=== PATIENT | female | born 1965 | race Caucasian/White ===

== ENCOUNTER 2017-05-13 23:53 | Emergency (ER) | payer OTHER ==
--- NOTE | 2017-05-14 03:11 | PDOC ---
History of Present Illness - General Stated Complaint: RT ARM PAIN Time Seen by Provider: 05/14/17 02:56 History Source: Patient Exam Limitations: No Limitations - History of Present Illness Initial Comments: 05/14/17 03:10 Patient is a 51F with history of opiate abuse (on methadone), asthma, throat cancer (s/p removal and chemo, last tx 9 years ago), gastrostomy, and cholecystectomy here today complaining of right shoulder pain that woke her from sleep. She reports having chronic weakness and pain in the right shoulder that worsened today. Patient denies trauma. Patient denies shortness of breath, chest pain, nausea, vomiting, fevers and chills. She denies leg swelling, recent immobilization, and travel. Past History - Past Medical History Allergies/Adverse Reactions: Allergies Allergy/AdvReac Type Severity Reaction Status Date / Time Penicillins Allergy Verified 05/14/17 03:20 Home Medications: Ambulatory Orders Zolpidem Tartrate [Ambien] 10 mg PO HS 10/14/11 Albuterol 0.083% Nebulizer Swapna [Ventolin 0.083% Nebulizer Soln -] 1 neb NEB QID 04/20/15 Albuterol Sulfate Inhaler - [Ventolin HFA Inhaler -] 1 - 2 inh PO QID PRN Atorvastatin Ca [Lipitor] 20 mg PO HS 04/20/15 Clonazepam 2 mg PO TID 04/20/15 Fluticasone Propionate [Flovent Hfa] 220 mcg IH BID 04/20/15 Folic Acid 1 mg PO DAILY 04/20/15 Lorazepam 2 mg PO TID 04/20/15 Mometasone Furoate [Asmanex] 220 mcg IH BID 04/20/15 Risperidone 1 mg PO DAILY 04/20/15 Risperidone 1 mg PO DAILY 04/20/15 hydrOXYzine PAMOATE [Vistaril -] 50 mg PO TID 04/20/15 Asthma: Yes Cancer: Yes (throat ca on remission) Thyroid Disease: No - Surgical History Abdominal Surgery: Yes (GASTROSTOMY, REMOVED) Cholecystectomy: Yes - Reproductive History (#): 7 Para: 6 Spontaneous : 1 - Immunization History Immunization Up to Date: Yes - Suicide/Smoking/Psychosocial Hx Smoking Status: No Smoking History: Current every day smoker Have you smoked in the past 12 months: Yes Number of Cigarettes Smoked Daily: 10 'Breaking Loose' booklet given: 04/21/15 Hx Alcohol Use: No Drug/Substance Use Hx: No Substance Use Type: None, Cocaine, Heroin Hx Substance Use Treatment: Yes Review of Systems - Review of Systems Comments:: 05/14/17 03:20 GENERAL/CONSTITUTIONAL: No fever or chills. HEAD, EYES, EARS, NOSE AND THROAT: No change in vision. No sore throat. CARDIOVASCULAR: No chest pain or shortness of breath RESPIRATORY: No cough, wheezing, or hemoptysis. GASTROINTESTINAL: No nausea, vomiting, diarrhea or constipation. MUSCULOSKELETAL: Positive for right shoulder pain. No neck or back pain. SKIN: No rash NEUROLOGIC: No headache, vertigo, loss of consciousness, or change in strength/ sensation. ENDOCRINE: No increased thirst. No abnormal weight change HEMATOLOGIC/LYMPHATIC: No anemia, easy bleeding, or history of blood clots. ALLERGIC/IMMUNOLOGIC: No hives or skin allergy. *Physical Exam - Physical Exam Comments: 05/14/17 03:21 GENERAL: Awake, alert, and fully oriented, in no acute distress R SHOULDER: No bruising or ecchymosis. Neurovascularly intact distal to injury. Tender to palpation long humeral head, clavicle. Palpation of distal humerus causes pain in shoulder HEAD: No signs of trauma, normocephalic, atraumatic EYES: PERRLA, EOMI, sclera anicteric, conjunctiva clear ENT: Auricles normal inspection, hearing grossly normal, nares patent, oropharynx clear without exudates. Moist mucosa LUNGS: No distress, speaks full sentences, clear to auscultation bilaterally HEART: Regular rate and rhythm, normal S1 and S2, no murmurs, rubs or gallops, peripheral pulses normal and equal bilaterally. NEUROLOGICAL: Cranial nerves II through XII grossly intact. Normal speech, no focal sensorimotor deficits SKIN: Warm, Dry, normal turgor, no rashes or lesions noted. ED Treatment Course - RADIOLOGY Radiology Studies Ordered: Category Date Time Status SHOULDER-RIGHT [RAD] Stat Radiology 05/14/17 03:09 Ordered Medical Decision Making - Medical Decision Making 05/14/17 03:23 Patient is 51F with history of opiate abuse, throat cancer, asthma, cholecystectomy here today with shoulder pain. Vital signs stable and normal. Considered atypical presentation of cardiac etiology, do not believe likely given physical exam and history. Will evaluate with shoulder x-rays. Will use low dose ketamine to attempt to control pain. 05/14/17 05:05 Shoulder x-ray negative for any acute pathology. Patient's pain much improved after low dose ketamine, tolerated well. Will discharge with instructions to take NSAIDS and follow up with her primary care doctor. *DC/Admit/Observation/Transfer Diagnosis at time of Disposition: Shoulder pain, right - Discharge Dispostion Disposition: HOME Condition at time of disposition: Good Admit: No - Referrals Referrals: Dannielle Blackmon MD [Primary Care Provider] - - Patient Instructions Printed Discharge Instructions: DI for Shoulder Pain Additional Instructions: Please return if you have any new, worsening or concerning symptoms. Please follow up with your primary care physician this week. Please take ibuprofen or naproxen for your shoulder pain as described on the bottle. - Post Discharge Activity Forms/Work/School Notes: Back to Work
[2017-05-14 03:20] VITALS: BP 113/73; PULSE 68; TEMP 98.5; BMI 23.3
[2017-05-14] MEDS ORDERED: KETAMINE HCL 500 MG/10 ML VIAL IV ONE (03:34)
--- NOTE | 2017-05-14 03:56 | PDOC ---
Attending Attestation - HPI HPI: 05/14/17 04:46 Pt is a 51 yo F with a PMHx of Throat CA, Asthma, Substance abuse (on Methadone ) who presents to the ED with R shoulder pain. Patient reports sudden onset of R shoulder pain that woke her up from sleep. Patient denies any recent trauma or injury to the area. Patient denies any numbness,weakness or tingling. PCP: - Medical Decision Making 05/14/17 04:25 Documentation prepared by Olinda Thomas, acting as medical sales consultant for Yesy Yang MD <Olinda Thomas - Last Filed: 05/14/17 04:46> - Resident Resident Name: Stanislaw Sosa - ED Attending Attestation I have performed the following: I have examined & evaluated the patient, The case was reviewed & discussed with the resident, I agree w/resident's findings & plan, Exceptions are as noted - Physicial Exam PE: GENERAL: Awake, alert, and fully oriented, in no acute distress HEAD: No signs of trauma EYES: PERRLA, EOMI, sclera anicteric, conjunctiva clear ENT: Auricles normal inspection, hearing grossly normal, nares patent, oropharynx clear without exudates. Moist mucosa NECK: Normal ROM, supple, no lymphadenopathy, JVD, or masses LUNGS: Breath sounds equal, clear to auscultation bilaterally. No wheezes, and no crackles HEART: Regular rate and rhythm, normal S1 and S2, no murmurs, rubs or gallops ABDOMEN: Soft, nontender, normoactive bowel sounds. No guarding, no rebound. No masses EXTREMITIES: R deltoid tenderness/spasm, worse with ROM. No bony tenderness. Remainder of extremities with normal range of motion, no edema. No clubbing or cyanosis. No cords, erythema, or tenderness NEUROLOGICAL: Cranial nerves II through XII grossly intact. Normal speech, normal gait SKIN: Warm, Dry, normal turgor, no rashes or lesions noted. - Medical Decision Making Pain appears to be musculoskeletal, reproducible on ROM of R shoulder. Patient states she does a lot of housework and overhead lifting. There is no bony tenderness, and no acute finding on XR. Will treat for pain, likely DC home. <Yesy Yang - Last Filed: 05/14/17 04:50>
== END 2017-05-14 05:20 | disposition home or self-care (01) ==
LOC: JER 23:53
DX: M25.511 Pain in right shoulder (principal); F10.20 Alcohol dependence, uncomplicated; J45.909 Unspecified asthma, uncomplicated; F17.210 Nicotine dependence, cigarettes, uncomplicated; Z85.819 Personal history of malignant neoplasm of unspecified site of lip, oral cavity, and pharynx; Z93.1 Gastrostomy status; Z90.49 Acquired absence of other specified parts of digestive tract
CPT/HCPCS: 73030-TC-RT-FY; 99281-25

== ENCOUNTER 2018-11-08 02:48 | Inpatient (IN) | payer OTHER ==
[2018-11-08] MEDS ORDERED: SODIUM CHLORIDE 0.9% 500 ML INFUS.BAG IV ONE (03:40)
--- NOTE | 2018-11-08 03:54 | PDOC ---
History of Present Illness - General Chief Complaint: Respiratory Stated Complaint: DIFFICULTY BREATHING Time Seen by Provider: 11/08/18 03:01 History Source: Patient, Spouse (pedro) Exam Limitations: No Limitations - History of Present Illness Initial Comments: 11/08/18 03:45 52F w/ pmh of esophageal CA s/p chemoradiation now in remission, former dope user now on methadone BIBA after the daughter found the pt lethargic and minimally arousable to physical and verbal stimuli at home. EMS states that the patient had coarse crackly breath sounds, delivered albuterol x2 en route. Patient endorses productive cough with brown sputum w/ measured fever and chills at home yesterday. States that she was recently hospitalized at [facility] after she had syncope and w/u showing PNA. Was discharged home on 11/06/18 w/ levofloxacin. Patient states that she has been compliant with medications. At baseline, eats a soft diet due to h/o esophageal cancer. Associated Symptoms: reports: fever/chills. denies: chest pain, cough, diaphoresis, headaches, nausea/vomiting, shortness of breath, syncope Past History - Travel Traveled outside of the country in the last 30 days: No Close contact w/someone who was outside of country & ill: No - Past Medical History Allergies/Adverse Reactions: Allergies Allergy/AdvReac Type Severity Reaction Status Date / Time Penicillins Allergy Verified 05/14/17 03:20 Home Medications: Ambulatory Orders Zolpidem Tartrate [Ambien] 10 mg PO HS 10/14/11 Albuterol 0.083% Nebulizer Swapna [Ventolin 0.083% Nebulizer Soln -] 1 neb NEB QID 04/20/15 Atorvastatin Ca [Lipitor] 20 mg PO HS 04/20/15 Clonazepam 2 mg PO TID 04/20/15 Fluticasone Propionate [Flovent Hfa] 220 mcg IH BID 04/20/15 Folic Acid 1 mg PO DAILY 04/20/15 Mometasone Furoate [Asmanex] 220 mcg IH BID 04/20/15 hydrOXYzine PAMOATE [Vistaril -] 50 mg PO TID 04/20/15 Levothyroxine [Synthroid -] 50 mcg PO DAILY 01/03/18 Risperidone [Risperdal] 2 mg PO DAILY 10/18/18 Guaifenesin 100 mg PO QID PRN #1 bottle 02/27/18 Gabapentin Liquid [Neurontin Oral Liquid -] 500 mg PO TID #900 ml 03/13/18 Nystatin Cream [Mycostatin] 1 applic TP BID #1 tube 03/13/18 Baclofen 10 mg PO TID PRN #60 tablet 03/27/18 Albuterol Sulfate Inhaler - [Ventolin HFA Inhaler -] 2 inh PO QID PRN #1 inhaler 04/15/18 Diclofenac Sodium [Voltaren] 2 gm TP TID PRN #3 tube 06/04/18 Methadone [Dolophine -] 90 mg PO DAILY 06/04/18 Polyethylene Glycol 3350 [Miralax (For Bowel Prep) -] 17 gm PO DAILY #1 bottle 06/04/18 Asthma: Yes Cancer: Yes (esophageal ca in remission) Cardiac Disorders: No Hx Myocardial Infarction: No CVA: No COPD: Yes CHF: No Diabetes: No Disorders: No (frequency of urinating) HTN: No Hypercholesterolemia: No Liver Disease: No Seizures: No Thyroid Disease: No - Surgical History Abdominal Surgery: Yes (GASTROSTOMY, REMOVED) Cholecystectomy: Yes (open candice) - Family Disease History Family Disease History: Diabetes: Father, Mother - Reproductive History (#): 7 Para: 6 Spontaneous : 1 - Immunization History Immunization Up to Date: Yes - Suicide/Smoking/Psychosocial Hx Smoking Status: No Smoking History: Current some day smoker (1cig intermittently throughout week) Have you smoked in the past 12 months: No Number of Cigarettes Smoked Daily: 2 Information on smoking cessation initiated: No 'Breaking Loose' booklet given: 04/21/15 Hx Alcohol Use: No Drug/Substance Use Hx: Yes (dope) Substance Use Type: Heroin Hx Substance Use Treatment: Yes (methadone maintenance) Review of Systems - Review of Systems Able to Perform ROS?: Yes Is the patient limited Estonian proficient: No Constitutional: Yes: Chills, Fever HEENTM: No: Blurred Vision, Double Vision Respiratory: Yes: Shortness of Breath, Productive cough Cardiac (ROS): No: Chest Pain, Irregular Heart Rate, Palpitations, Chest Tightness ABD/GI: No: Constipated, Diarrhea, Nausea, Vomiting : No: Burning, Dysuria Neurological: No: Headache, Dizziness *Physical Exam - Vital Signs Last Vital Signs Temp Pulse Resp BP Pulse Ox 100.8 F H 62 22 H 119/87 95 11/08/18 03:14 11/08/18 03:14 11/08/18 03:14 11/08/18 03:14 11/08/18 03:14 - Physical Exam General Appearance: No: Apparent Distress HEENT: positive: Normal Voice. negative: Pale Conjunctivae, Scleral Icterus (R) , Scleral Icterus (L) Neck: positive: Supple. negative: Trachea midline, Lymphadenopathy (R), Lymphadenopathy (L) Respiratory/Chest: positive: Crackles, Rales. negative: Chest Tender, Lungs Clear, Normal Breath Sounds, Respiratory Distress, Rapid RR, Stridor, Wheezing, Hyperresonant, Dullness, Plerual Rub Cardiovascular: positive: Regular Rate, S1, S2. negative: Tachycardia Vascular Pulses: Dorsalis-Pedis (R): 2+, Doralis-Pedis (L): 2+ Gastrointestinal/Abdominal: positive: Soft, Other (Right subcostal surgical incision) Neurologic: positive: Alert. negative: Confused ED Treatment Course - LABORATORY CBC & Chemistry Diagram: 11/08/18 03:40 11/08/18 03:40 - RADIOLOGY Radiology Studies Ordered: Category Date Time Status CHEST - PA [RAD] Stat Radiology 11/08/18 03:40 Ordered Medical Decision Making - Medical Decision Making 11/08/18 04:23 BIBA for AMS, now at baseline. Condition likely 2/2 recent PNA - fu CBC, CMP, troponin, EKG, BCX, UA, UCX - fu CXR - administer NS 1L bolus, ofirmev 11/08/18 05:29 - fu CT chest to further eval for PNA 11/08/18 06:19 - CT chest with b/l multifocal diffuse infiltrates - will administer ceftriaxone and azithromycin - supplemental O2 needs, saturating to 80s on RA; now on NC 2L - decision to admit *DC/Admit/Observation/Transfer Diagnosis at time of Disposition: Pneumonia of both upper lobes Qualifiers: Pneumonia type: due to unspecified organism Qualified Code(s): J18.1 - Lobar pneumonia, unspecified organism - Discharge Dispostion Condition at time of disposition: Stable Decision to Admit order: Yes - Referrals Referrals: Dannielle Blackmon MD [Primary Care Provider] - - Patient Instructions - Post Discharge Activity
[2018-11-08] MEDS ORDERED: ACETAMINOPHEN 1000 MG/100 ML VIAL (NON FORMULARY) IVPB ONE (04:02)
[2018-11-08] MEDS ORDERED: ACETAMINOPHEN INJECTION 100 ML IVPB ONE (04:13)
[2018-11-08 04:49] LABS: BASO % 0.4 % (0-2.0); EOS % 1.8 % (0-4.5); HEMATOCRIT 31.9 % (32.4-45.2); HEMOGLOBIN 10.1 GM/dL (10.7-15.3); LYMPH % 12.9 % (8-40); MCH 26.7 pg (25.7-33.7); MCHC 31.5 g/dl (32.0-36.0); MEAN CELL VOLUME 84.5 fl (80-96); MEAN PLT VOLUME 8.3 fl (7.5-11.1); MONO % 7.2 % (3.8-10.2); NEUT % 77.7 % (42.8-82.8); PLATELET COUNT 338 K/MM3 (134-434); RBC 3.78 M/mm3 (3.60-5.2); RDW 16.5 % (11.6-15.6); WHITE BLOOD COUNT 9.8 K/mm3 (4.0-10.0)
[2018-11-08 04:58] LABS: EPI CELLS 2.9 /HPF (0-5/HPF); HYALINE CASTS 1 /lpf (0-8); PH,URINE 6.5 (5.0-8.0); URINE APPEARANCE CLOUDY; URINE BACTERIA 15.2 /hpf (NEGATIVE); URINE BILIRUBIN NEGATIVE (NEGATIVE); URINE COLOR YELLOW; URINE GLUCOSE (UA) NEGATIVE (NEGATIVE); URINE KETONE NEGATIVE (NEGATIVE); URINE LEUK ESTERASE 1+ (NEGATIVE); URINE NITRITE NEGATIVE (NEGATIVE); URINE PROTEIN NEGATIVE (NEGATIVE); URINE RBC 1 /hpf (0-4); URINE WBC 12 /hpf (0-5)
[2018-11-08 05:02] LABS: INR 1.25 (0.83-1.09); PROTHROMBIN TIME (PATIENT) 14.8 SEC (9.7-13.0)
[2018-11-08 05:12] LABS: ALBUMIN 2.4 g/dl (3.4-5.0); BILIRUBIN,TOTAL 0.6 mg/dL (0.2-1); BLOOD UREA NITROGEN 7.5 mg/dL (7-18); CALCIUM 8.6 mg/dL (8.5-10.1); CREATININE 0.9 mg/dL (0.55-1.3); TOT PROT 6.5 g/dl (6.4-8.2)
[2018-11-08] MEDS ORDERED: CEFTRIAXONE 1,000 MG in DEXTROSE 5%-WATER - 50 ML IVPB ONE (06:12)
[2018-11-08] MEDS ORDERED: AZITHROMYCIN IVPB 500 MG in DEXTROSE 5%-WATER - 250 ML IVPB ONE (06:12)
[2018-11-08 06:13] LABS: N-TERMINAL BNP 818.2 pg/ml (5-125)
[2018-11-08] MEDS ORDERED: AZITHROMYCIN IVPB 500 MG/250 ML BAG IVPB ONE (06:29)
[2018-11-08] MEDS ORDERED: CEFTRIAXONE 1 GM/50 ML BAG ONE (06:30)
--- NOTE | 2018-11-08 06:43 | PDOC ---
Attending Attestation - Resident Resident Name: LynchWinston - ED Attending Attestation I have performed the following: I have examined & evaluated the patient, The case was reviewed & discussed with the resident, I agree w/resident's findings & plan, Exceptions are as noted - HPI HPI: 11/08/18 06:40 52F pmh esophageal CA in remission after chemorad, ex IVDA on methadone here after being found lethargic but arousable at home. Pt with f/c and productive cough at home. Pt is on day 3 of outpt levaquin treatment of pneumonia - Physicial Exam PE: 11/08/18 06:41 Agree with exam as documented by resident - Medical Decision Making 11/08/18 06:42 Somnolence likely 2/2 failure of outpatient PNA treatment f/u cxr, labs, ekg Likely infiltrate on CXR found to be hypoxic on RA F/u ct Chest ct chest, extensive multilobar infiltrates abx admit
[2018-11-08] MEDS ORDERED: PATIENT'S OWN MEDICATION (NON-FORMULARY) (Diclofenac Sodium [Voltaren] 2 GM) TP PRN (07:17)
[2018-11-08] MEDS ORDERED: SODIUM CHLORIDE 1,000 ML IV STA ×3 (07:20→11:35)
[2018-11-08] MEDS ORDERED: METHADONE HCL 40 MG DISPERSABLE TABLET PO SCH ×2 (10:00→11:34)
[2018-11-08] MEDS ORDERED: ALBUTEROL SO4 0.083% IH SOL 2.5 MG/3 ML VIAL.NEB. NEB ONE (10:44)
--- NOTE | 2018-11-08 10:52 | HP ---
CHIEF COMPLAINT: weakness, SOB PCP: Robby Pantoja HISTORY OF PRESENT ILLNESS: 52 y.o. F PMH significant for esophageal CA diagnosed in 2015 s/p chemo/rad ( completed in 2016), ex- IVDU on methadone (90), hypothyroidism, asthma (uses albuterol inhaler 1x/week) presented with weakness, SOB and lethargy as per pt' s daughter. Pt BIBEMS, given albuterol inh x2. On admission pt found to be hypotensive. Given 1L NS bolus w/ improvement of BP. About 1 week ago patient was admitted to Health system for syncopal episode and was found to have b/l PNA at this time. Patient was d/c'd on 11/06/18 with PO levaquin and says she has taken it since her date of discharge (today day #3 abx). Pt currently endorses recent fevers and cough productive of brown sputum for the past few days. Chest imaging in ED revealed b/l patchy infiltrates; pt was given 1g Ceftriaxone & 500mg Azithromycin. ER course was notable for: (1) Hypotension 87/49 (2) Ceftriaxone 1g, Azithromycin 500mg, 1g IV tylenol (3)1L bolus NS Recent Travel: Denies PAST MEDICAL HISTORY: as above PAST SURGICAL HISTORY: Lap candice in 2016 Social History: Lives in and out of a detention with her Smokin-2 cigarettes per day x many years Alcohol: Denies Drugs: In past, on methadone Family History: Asthma in mother & father Allergies Penicillins Allergy (Verified 05/14/17 03:20)- pt gets a rash HOME MEDICATIONS: Home Medications Medication Instructions Recorded Zolpidem Tartrate [Ambien] 10 mg PO HS 10/14/11 Albuterol 0.083% Nebulizer Swapna 1 neb NEB QID 04/20/15 [Ventolin 0.083% Nebulizer Soln -] Atorvastatin Ca [Lipitor] 20 mg PO HS 04/20/15 Clonazepam 2 mg PO TID 04/20/15 Fluticasone Propionate [Flovent 220 mcg IH BID 04/20/15 Hfa] Folic Acid 1 mg PO DAILY 04/20/15 Mometasone Furoate [Asmanex] 220 mcg IH BID 04/20/15 hydrOXYzine PAMOATE [Vistaril -] 50 mg PO TID 04/20/15 Levothyroxine [Synthroid -] 50 mcg PO DAILY 01/03/18 Risperidone [Risperdal] 2 mg PO DAILY 01/03/18 Guaifenesin 100 mg PO QID PRN #1 bottle 02/27/18 Gabapentin Liquid [Neurontin Oral 500 mg PO TID #900 ml 03/13/18 Liquid -] Nystatin Cream [Mycostatin] 1 applic TP BID #1 tube 03/13/18 Baclofen 10 mg PO TID PRN #60 tablet 03/27/18 Albuterol Sulfate Inhaler - 2 inh PO QID PRN #1 inhaler 04/15/18 [Ventolin HFA Inhaler -] Diclofenac Sodium [Voltaren] 2 gm TP TID PRN #3 tube 06/04/18 Methadone [Dolophine -] 90 mg PO DAILY 06/04/18 Polyethylene Glycol 3350 [Miralax 17 gm PO DAILY #1 bottle 06/04/18 (For Bowel Prep) -] REVIEW OF SYSTEMS CONSTITUTIONAL: Absent: fever, chills, diaphoresis, generalized weakness, malaise, loss of appetite, weight change HEENT: Absent: rhinorrhea, nasal congestion, throat pain, throat swelling, difficulty swallowing, mouth swelling, ear pain, eye pain, visual changes CARDIOVASCULAR: Absent: chest pain, syncope, palpitations, irregular heart rate, lightheadedness , peripheral edema RESPIRATORY: Absent: cough, shortness of breath, dyspnea with exertion, orthopnea, wheezing, stridor, hemoptysis GASTROINTESTINAL: Absent: abdominal pain, abdominal distension, nausea, vomiting, diarrhea, constipation, melena, hematochezia GENITOURINARY: Absent: dysuria, frequency, urgency, hesitancy, hematuria, flank pain, genital pain MUSCULOSKELETAL: Absent: myalgia, arthralgia, joint swelling, back pain, neck pain SKIN: Absent: rash, itching, pallor HEMATOLOGIC/IMMUNOLOGIC: Absent: easy bleeding, easy bruising, lymphadenopathy, frequent infections ENDOCRINE: Absent: unexplained weight gain, unexplained weight loss, heat intolerance, cold intolerance NEUROLOGIC: Absent: headache, focal weakness or paresthesias, dizziness, unsteady gait, seizure, mental status changes, bladder or bowel incontinence PSYCHIATRIC: Absent: anxiety, depression, suicidal or homicidal ideation, hallucinations. PHYSICAL EXAMINATION Vital Signs - 24 hr 11/08/18 11/08/18 11/08/18 03:14 06:03 06:40 Temperature 100.8 F H 98.3 F Pulse Rate 62 Pulse Rate [ 70 69 Apical] Respiratory 22 H 20 20 Rate Blood Pressure 119/87 Blood Pressure 87/49 L 97/55 L [Right Arm] O2 Sat by Pulse 95 97 97 Oximetry (%) 11/08/18 07:17 Temperature 98.3 F Pulse Rate Pulse Rate [ 70 Apical] Respiratory 17 Rate Blood Pressure Blood Pressure 97/62 [Right Arm] O2 Sat by Pulse 99 Oximetry (%) GENERAL: Awake, alert, and fully oriented, in no acute distress. HEENT: NCAT. EOMI. PERRLA. No scleral icterus. LUNGS: Mild expiratory wheeze RLL. B/l lower lobe fine crackles. No accessory muscle use. HEART: Regular rate and rhythm, normal S1 and S2 without murmurs. ABDOMEN: Soft, nontender, not distended, normoactive bowel sounds, no guarding. RUQ lap candice scar noted. MUSCULOSKELETAL: Good ROM all extremities. UPPER EXTREMITIES: 2+ pulses, warm, well-perfused. No cyanosis. B/l finger clubbing. No peripheral edema. Self injurious scars noted on R wrist. LOWER EXTREMITIES: 2+ pulses, warm, well-perfused. No calf tenderness. No peripheral edema. PSYCHIATRIC: Pt states she is in a good mood. Affect appropriate to stated mood. Laboratory Results - last 24 hr 11/08/18 11/08/18 11/08/18 03:40 03:40 03:40 WBC 9.8 RBC 3.78 Hgb 10.1 L Hct 31.9 L D MCV 84.5 MCH 26.7 MCHC 31.5 L RDW 16.5 H Plt Count 338 D MPV 8.3 Absolute Neuts (auto) 7.6 Neutrophils % 77.7 D Lymphocytes % 12.9 D Monocytes % 7.2 Eosinophils % 1.8 Basophils % 0.4 Nucleated RBC % 0 PT with INR 14.80 H INR 1.25 H Sodium 135 L Potassium 4.0 Chloride 98 Carbon Dioxide 31 Anion Gap 6 L BUN 7.5 Creatinine 0.9 Est GFR (CKD-EPI)AfAm 85.80 Est GFR (CKD-EPI)NonAf 74.03 Random Glucose 115 H Lactic Acid Calcium 8.6 Total Bilirubin 0.6 AST 55 H ALT 38 Alkaline Phosphatase 253 H Troponin I B-Natriuretic Peptide Total Protein 6.5 Albumin 2.4 L Urine Color Urine Appearance Urine pH Ur Specific Pillager Urine Protein Urine Glucose (UA) Urine Ketones Urine Blood Urine Nitrite Urine Bilirubin Urine Urobilinogen Ur Leukocyte Esterase Urine WBC (Auto) Urine RBC (Auto) Urine Casts (Auto) U Epithel Cells (Auto) Urine Bacteria (Auto) 11/08/18 11/08/18 11/08/18 03:40 03:40 04:23 WBC RBC Hgb Hct MCV MCH MCHC RDW Plt Count MPV Absolute Neuts (auto) Neutrophils % Lymphocytes % Monocytes % Eosinophils % Basophils % Nucleated RBC % PT with INR INR Sodium Potassium Chloride Carbon Dioxide Anion Gap BUN Creatinine Est GFR (CKD-EPI)AfAm Est GFR (CKD-EPI)NonAf Random Glucose Lactic Acid 1.4 Calcium Total Bilirubin AST ALT Alkaline Phosphatase Troponin I < 0.02 B-Natriuretic Peptide 818.2 H Total Protein Albumin Urine Color Yellow Urine Appearance Cloudy Urine pH 6.5 Ur Specific Pillager 1.012 Urine Protein Negative Urine Glucose (UA) Negative Urine Ketones Negative Urine Blood Negative Urine Nitrite Negative Urine Bilirubin Negative Urine Urobilinogen 1.0 Ur Leukocyte Esterase 1+ H Urine WBC (Auto) 12 Urine RBC (Auto) 1 Urine Casts (Auto) 1 U Epithel Cells (Auto) 2.9 Urine Bacteria (Auto) 15.2 ASSESSMENT/PLAN: 52 y.o. F PMH esophageal CA diagnosed in 2014 s/p chemo/rad (completed in 2017) , ex- IVDU on methadone (90), hypothyroidism, asthma (uses albuterol inhaler 1x/ week). #B/l Pneumonia -CXR: patchy b/l infiltrates -CT chest: b/l PNA, extensive multilobar infiltrates -S/p 1 dose ceftriaxone & azithromycin today -BNP 818.2, LDH 399 -F/u sputum, blood, urine cx, sputum gm stain -F/u legionella ag -F/u HIV ag/ab -F/u ID (Dr. Rosales) #Hx substance abuse -Methadone dose confirmed, 90mg PO daily -Goes to [facility] methadone clinic -No signs of WD -Monitor vitals #Hx esophageal CA -In remission -Soft diet #Transaminitis -Trend LFTs #Hypothyroidism -C/w synthroid #FEN -Given 1L bolus today; No standing fluids -Monitor lytes -Soft diet #DVT PPX -LVX 40SQ daily Visit type - Emergency Visit Emergency Visit: Yes ED Registration Date: 11/08/18 Care time: The patient presented to the Emergency Department on the above date and was hospitalized for further evaluation of their emergent condition. - New Patient This patient is new to me today: Yes Date on this admission: 11/08/18 - Critical Care Critical Care patient: No ATTENDING PHYSICIAN STATEMENT I saw and evaluated the patient. I reviewed the resident's note and discussed the case with the resident. I agree with the resident's findings and plan as documented. SUBJECTIVE: OBJECTIVE: ASSESSMENT AND PLAN:
[2018-11-08] MEDS: ENOXAPARIN NA (PORCINE) 40 MG/0.4 ML DISP.SYRIN SQ SCH (10:55)
[2018-11-08] MEDS: ALBUTEROL SO4 0.083% IH SOL 2.5 MG/3 ML VIAL.NEB. NEB SCH ×3 (10:55→20:30)
[2018-11-08] MEDS: POLYETHYLENE GLYCOL 3350 255 GM BTL PO SCH (10:55)
[2018-11-08] MEDS: FOLIC ACID 1 MG TABLET (FP) PO SCH (10:55)
[2018-11-08] MEDS: MOMETASONE FUROATE 220 MCG/IH INHALER IH SCH ×2 (11:30→22:44)
[2018-11-08] MEDS ORDERED: METHADONE HCL 10 MG TABLET ONE (12:03)
[2018-11-08] MEDS ORDERED: METHADONE HCL 40 MG DISPERSABLE TABLET ONE (12:05)
[2018-11-08] MEDS ORDERED: clonazePAM 0.5 MG TABLET ONE (13:22)
[2018-11-08] MEDS: clonazePAM 2 MG TABLET PO SCH ×2 (13:27→22:44)
[2018-11-08] MEDS: GABAPENTIN 250 MG/5 ML ORAL SOLUTION, 470 ML BOTTLE PO SCH ×2 (13:27→22:44)
--- NOTE | 2018-11-08 14:27 | ECHO ---
Name: BRANNON MCKEON Exam:Adult Echocardiogram Study Date: 11/08/2018 09:46 AM Age: 52 yrs Reason For Study: Chest pain MMode/2D Measurements & Calculations IVSd: 1.1 cm Ao root diam: 2.6 cm LVIDd: 4.5 cm LA dimension: 3.7 cm LVIDs: 3.1 cm LVPWd: 0.95 cm EDV(Teich): 93.4 ml LVOT diam: 2.1 cm ESV(Teich): 37.2 ml Doppler Measurements & Calculations MV E max tyson: 86.9 cm/sec Ao V2 max: 122.8 cm/sec MV A max tyson: 64.2 cm/sec Ao max P.0 mmHg MV E/A: 1.4 Ao V2 mean: 77.3 cm/sec MV dec time: 0.19 sec Ao mean P.9 mmHg Ao V2 VTI: 25.6 cm PARIS(I,D): 3.3 cm2 PARIS(V,D): 3.2 cm2 LV V1 max P.0 mmHg MR max tyson: 395.0 cm/sec LV V1 mean P.2 mmHg MR max P.4 mmHg LV V1 max: 112.0 cm/sec LV V1 mean: 67.8 cm/sec LV V1 VTI: 23.6 cm SV(LVOT): 83.4 ml TR max tyson: 240.0 cm/sec TR max P.1 mmHg Med Peak E' Tyson: 8.7 cm/sec Med E/e': 10.0 Lat Peak E' Tyson: 13.4 cm/sec Lat E/e': 6.5 Procedure A complete two-dimensional transthoracic echocardiogram was performed (2D, M-mode, Doppler and color flow Doppler). Left Ventricle The left ventricular size, thickness and function are normal. The left ventricular ejection fraction is normal. Ejection Fraction = 55-60%. The left ventricular wall motion is normal. Right Ventricle The right ventricle is normal in size and function. Atria Normal left and right atrial size and function. Mitral Valve There is trace mitral regurgitation. Tricuspid Valve No tricuspid regurgitation. There was insufficient TR detected to calculate RV systolic pressure. Aortic Valve No hemodynamically significant valvular aortic stenosis. No aortic regurgitation is present. Pulmonic Valve There is no pulmonic valvular regurgitation. Great Vessels The aortic root is normal size. Pericardium/Pleura There is no pericardial effusion. Interpretation Summary The left ventricular size, thickness and function are normal The right ventricle is normal in size and function. There is trace mitral regurgitation. MD Jaylon Martinez 11/08/2018 02:26 PM
--- NOTE | 2018-11-08 15:52 | PN ---
Teaching Attending Note Name of Resident: Kezia Marti ATTENDING PHYSICIAN STATEMENT I saw and evaluated the patient. I reviewed the resident's note and discussed the case with the resident. I agree with the resident's findings and plan as documented. SUBJECTIVE:52yo F with PMH esophageal ca diagnosed in 2014 s/p chemo and radiation, remote hx of IVDA now on methadone,asthma and recently diagnosed hypothyroid and recent hospitalization at [facility] for PNA where she was hospitalized for 3 days and then sent home on levaquin which she been taking for 2 days presented with SOB and lethargy since discharge. having subjective fevers at home. denies CP, N/V/C/D. claims medication compliance. did not take abx today but becuase she was coming to the hospital. has been in some shelters the past few months. no known TB exposure OBJECTIVE: Last Vital Signs Temp Pulse Resp BP Pulse Ox 97.5 F L 82 16 122/75 99 11/08/18 11:40 11/08/18 11:40 11/08/18 11:40 11/08/18 11:40 11/08/18 07:17 General NAD CV S1 s2 RRR no murmur/rub/gallop Lungs diffuse rhonchi Abdomen soft NT/ND Extremities no pedal edema ASSESSMENT AND PLAN: 52yo F with PMH esophageal ca diagnosed in 2014 s/p chemo and radiation, remote hx of IVDA now on methadone,asthma and recently diagnosed hypothyroid and recent hospitalization at [facility] for PNA where she was hospitalized for 3 days and then sent home on levaquin which she been taking for 2 days presented with SOB and lethargy since discharge and found to be hypotensive on arrival 1. B/L PNA- tm 100.8 on arrival. unclear if this is progressive or residual from recent treatment. received Ceftriaxone and azithro in the Er. will consult ID for further abx recommendations. will need to obtain recent hospitalization records. check BCx, sputum cx, legionella, HIV 2. Hypotension- improved from bolus given in the ER. will give an additional 2 L bollus and re-evaluate. cont hydration 3. esophageal ca s/p chemo and Rtx- soft diet. outpatient follow up 4. remote hx of IVDA on methadone- [facility] 90[facility] 5. DVT ppx- lovenox
--- NOTE | 2018-11-08 17:25 | PN ---
Progress Note (short form) - Note Progress Note: ID CONSULT DICTATED BILATERAL PNEUMONIA PCN ALLERGY AWAIT C/S CONTINUE ZITHROMAX/ CEFTRIAXONE
[2018-11-08] MEDS ORDERED: ATORVASTATIN CA 20 MG TABLET (FP) ONE (21:32)
[2018-11-08] MEDS: ATORVASTATIN CA 20 MG TABLET (FP) PO SCH (22:44)
[2018-11-08 23:53] VITALS: BMI 27.3
--- NOTE | 2018-11-09 00:54 | CONS ---
DATE OF CONSULTATION: DATE OF DICTATION: 11/08/2018 INFECTIOUS DISEASE CONSULTATION HISTORY OF PRESENT ILLNESS: The patient is a 52-year-old female who is evaluated for bilateral pneumonia. The patient was recently hospitalized at [facility] from October 25 through November 06 after an apparent syncopal episode. She was diagnosed with pneumonia and was treated with IV antibiotics. She was discharged home on Levaquin. Patient reports taking the Levaquin at home. She was brought to [facility] emergency room after she became increasingly lethargic and somnolent. She developed dyspnea and cough productive of ayala sputum. She was brought to the emergency room where she was noted to be hypotensive. Chest x-ray showed increased markings bilaterally. CAT scan showed bilateral ground glass infiltrates involving mostly the upper lobes with some lower lobe involvement. Patient reports cough productive of brownish sputum. She denies any chest pain. No hemoptysis. She denies any fever or chills. No known ill contacts. No recent travel. The patient is a smoker and continues to smoke. She also has a history of IV drug use on methadone. She states she tested HIV negative in the past. She believes she is up to date with respect to influenza and pneumococcal vaccines. PAST MEDICAL HISTORY: Positive for bronchial asthma, hypothyroidism, history of esophageal cancer diagnosed in 2015 status post chemotherapy and radiation. Her last treatments were in 2017 and patient reports she is in complete remission. ALLERGIES: PENICILLIN (rash)> SOCIAL HISTORY: As per HPI. She is an active smoker. Lives at home with her significant other. She reports living in a intermediate 2014. She also reports consistently negative PPDs at her methadone program. LABORATORY DATA: White count 9.8, hematocrit 31.9, platelets 338, creatinine 0.9, sodium 135, total bilirubin 0.6, alkaline phosphatase 253, AST 55, lactic acid 1.4. Urinalysis: 12 white cells. PHYSICAL EXAMINATION: General: On exam, she is awake and alert. She is seated in a stretcher in the emergency room. She is not acutely short of breath. Her breathing is nonlabored on room air. Vital signs: Temperature 97.5, T-max 100.8, blood pressure 122/75, pulse 82 regular, respirations 16 per minute. HEENT: Sclerae anicteric. Oropharynx negative. Neck: Supple. No palpable nodes. Cardiovascular: Heart sounds S1, S2. Lungs: Diminished breath sounds throughout, scattered rhonchi, no rales. Abdomen: Soft, nontender. Extremities: Negative for edema. Negative Carlos sign. IMPRESSION: 1. Bilateral pneumonia. 2. PENICILLIN allergy. 3. Acute exacerbation chronic obstructive pulmonary disease. 4. History of opiate addiction on methadone. 5. Status post treatment for esophageal cancer now in remission. Await cultures. Continue empiric antibiotic coverage in this PENICILLIN allergy patient with Zithromax and ceftriaxone. There are no cavitary lesions or other findings present on CAT scan to suggest pulmonary tuberculosis. Agree with HIV testing. Will follow. Thank you for the kind referral. MATTHEW GU M.D. [id number]
[2018-11-09] MEDS: clonazePAM 0.5 MG TABLET PO SCH ×3 (06:06→21:50)
[2018-11-09] MEDS: LEVOTHYROXINE NA 50 MCG TABLET (FP) PO SCH (06:06)
[2018-11-09 07:21] LABS: BASO % 0.8 % (0-2.0); EOS % 3.4 % (0-4.5); HEMATOCRIT 27.6 % (32.4-45.2); LYMPH % 21.9 % (8-40); MCH 27.4 pg (25.7-33.7); MCHC 32.7 g/dl (32.0-36.0); MEAN CELL VOLUME 83.8 fl (80-96); MEAN PLT VOLUME 8.1 fl (7.5-11.1); MONO % 7.8 % (3.8-10.2); NEUT % 66.1 % (42.8-82.8); PLATELET COUNT 329 K/MM3 (134-434); RBC 3.29 M/mm3 (3.60-5.2); RDW 17.2 % (11.6-15.6); WHITE BLOOD COUNT 9.9 K/mm3 (4.0-10.0)
[2018-11-09] MEDS ORDERED: METHADONE HCL 10 MG TABLET ONE (07:46)
[2018-11-09] MEDS ORDERED: METHADONE HCL 40 MG DISPERSABLE TABLET ONE (07:46)
[2018-11-09 07:49] LABS: ALBUMIN 2.1 g/dl (3.4-5.0); BILIRUBIN,TOTAL 0.3 mg/dL (0.2-1); BLOOD UREA NITROGEN 8.2 mg/dL (7-18); CALCIUM 8.4 mg/dL (8.5-10.1); CREATININE 0.7 mg/dL (0.55-1.3); PHOSPHOROUS 3.4 mg/dL (2.5-4.9); POTASSIUM 4.4 mmol/L (3.5-5.1); TOT PROT 5.9 g/dl (6.4-8.2)
[2018-11-09] MEDS: GABAPENTIN 250 MG/5 ML ORAL SOLUTION, 470 ML BOTTLE PO SCH (07:49)
[2018-11-09] MEDS: METHADONE 80 MG, METHADONE 10 MG PO SCH (07:50)
--- NOTE | 2018-11-09 07:54 | PN ---
Progress Note (short form) - Note Progress Note: breathing much better today. continues to have non productive cough. denies CP, fever, chills, N/V/C/D, dysuria, urinary frequency Current Medications Generic Name Dose Route Start Last Admin Trade Name Freq PRN Reason Stop Dose Admin Albuterol Sulfate 1 amp 11/08/18 10:00 11/08/18 20:30 Ventolin 0.083% Nebulizer Soln - NEB Not Given RQID MANUEL Atorvastatin Calcium 20 mg 11/08/18 22:00 11/08/18 22:44 Lipitor - PO 20 mg HS MANUEL Administration Clonazepam 2 mg 11/09/18 06:00 11/09/18 06:06 Klonopin - PO 2 mg TID MANUEL Administration Enoxaparin Sodium 40 mg 11/08/18 10:00 11/08/18 10:55 Lovenox - SQ 40 mg DAILY MANUEL Administration Folic Acid 1 mg 11/08/18 10:00 11/08/18 10:55 Folic Acid - PO 1 mg DAILY MANUEL Administration Gabapentin 500 mg 11/08/18 14:00 11/09/18 07:49 Neurontin Oral Liquid - PO 500 mg TID MANUEL Administration Azithromycin 500 mg in 250 mls @ 250 mls/hr 11/09/18 10:00 Zithromax 500mg Ivpb (Pre-Docked) IVPB DAILY [facility] Ceftriaxone Sodium 2 gm/ 100 mls @ 200 mls/hr 11/09/18 10:00 Dextrose IVPB DAILY [facility] Protocol Levothyroxine Sodium 50 mcg 11/09/18 07:00 11/09/18 06:06 Synthroid - PO 50 mcg DAILY@0700 MANUEL Administration Methadone HCl 80 mg/ Methadone 90 mg 11/09/18 07:30 11/09/18 07:50 HCl 10 mg PO 90 mg DAILY@0600 MANUEL Administration Mometasone Furoate 2 puff 11/08/18 10:00 11/08/18 22:44 Asmanex 220mcg - IH Not Given HS [facility] Non-Formulary Medication 2 gm 11/08/18 07:17 Diclofenac Sodium [Voltaren] TP TID PRN PAIN LEVEL 4 - 6 Pneumococcal 13-Valent Conj Vacc 0.5 ml 11/09/18 11:00 Prevnar 13 Syringe - IM 11/09/18 11:01 .ONCE ONE Polyethylene Glycol 17 gm 11/08/18 10:00 11/08/18 10:55 Miralax (For Bowel Prep) - PO 17 grams DAILY MANUEL Administration Zolpidem Tartrate 10 mg 11/08/18 22:00 Ambien - PO HS PRN INSOMNIA Last Vital Signs Temp Pulse Resp BP Pulse Ox 98.4 F 97 H 16 102/68 96 11/09/18 02:00 11/09/18 02:00 11/09/18 02:00 11/09/18 02:00 11/09/18 02:00 General NAD CV S1 s2 RRR no murmur/rub/gallop Lungs diffuse rhonchi, poor inspiratory effort Abdomen soft NT/ND no suprapubic distention or pain Extremities no pedal edema CBCD WBC 9.9 K/mm3 (4.0-10.0) 11/09/18 06:00 RBC 3.29 M/mm3 (3.60-5.2) L 11/09/18 06:00 Hgb 9.0 GM/dL (10.7-15.3) L 11/09/18 06:00 Hct 27.6 % (32.4-45.2) L 11/09/18 06:00 MCV 83.8 fl (80-96) 11/09/18 06:00 MCHC 32.7 g/dl (32.0-36.0) 11/09/18 06:00 RDW 17.2 % (11.6-15.6) H 11/09/18 06:00 Plt Count 329 K/MM3 (134-434) 11/09/18 06:00 MPV 8.1 fl (7.5-11.1) 11/09/18 06:00 CMP Sodium 138 mmol/L (136-145) 11/09/18 06:00 Potassium 4.4 mmol/L (3.5-5.1) 11/09/18 06:00 Chloride 103 mmol/L (98-107) 11/09/18 06:00 Carbon Dioxide 28 mmol/L (21-32) 11/09/18 06:00 Anion Gap 7 MMOL/L (8-16) L 11/09/18 06:00 BUN 8.2 mg/dL (7-18) 11/09/18 06:00 Creatinine 0.7 mg/dL (0.55-1.3) 11/09/18 06:00 Calcium 8.4 mg/dL (8.5-10.1) L 11/09/18 06:00 Total Bilirubin 0.3 mg/dL (0.2-1) 11/09/18 06:00 AST 31 U/L (15-37) 11/09/18 06:00 ALT 29 U/L (13-61) 11/09/18 06:00 Alkaline Phosphatase 204 U/L (45-117) H 11/09/18 06:00 Total Protein 5.9 g/dl (6.4-8.2) L 11/09/18 06:00 Albumin 2.1 g/dl (3.4-5.0) L 11/09/18 06:00 Microbiology 11/08/18 04:23 Urine - Urine Clean Catch Urine Culture - Final Lactose Fermenting Neg Bacilli Staphylococcus Coagulase Neg 11/08/18 03:35 Blood - Peripheral Venous Blood Culture - Preliminary NO GROWTH OBTAINED AFTER 24 HOURS, INCUBATION TO CONTINUE FOR 4 DAYS. 11/08/18 03:35 Blood - Peripheral Venous Blood Culture - Preliminary NO GROWTH OBTAINED AFTER 24 HOURS, INCUBATION TO CONTINUE FOR 4 DAYS. 11/08/18 04:23 Sputum - Expectorated Gram Stain - Final 11/08/18 12:30 Urine For Antigen Detection Legionella Antigen - Final 11/08/18 12:30 Urine For Antigen Detection Streptococcus pneumoniae Antigen (M - Final ASSESSMENT AND PLAN: 52yo F with PMH esophageal ca diagnosed in 2014 s/p chemo and radiation, remote hx of IVDA now on methadone,asthma and recently diagnosed hypothyroid and recent hospitalization at [facility] for PNA where she was hospitalized for 3 days and then sent home on levaquin which she been taking for 2 days presented with SOB and lethargy since discharge and found to be hypotensive on arrival 1. B/L PNA-afebrile and leukocytosis improved. all cx negative to this time. on azithro and ceftriaxone day 2. will hold IVF as eating well. ID on board. f/u Cx. HIV pending 2. Uncomplicated UTI- asymptomatic but +organisms. on abx for pna will treat. f/ u official cx 3. Hypotension- improved. runs low at baseline. will monitor 4. esophageal ca s/p chemo and Rtx- soft diet. outpatient follow up 5. remote hx of IVDA on methadone- dose [facility] 90[facility] 6. DVT ppx- lovenox Visit type - Emergency Visit Emergency Visit: Yes ED Registration Date: 11/08/18 Care time: The patient presented to the Emergency Department on the above date and was hospitalized for further evaluation of their emergent condition. - New Patient This patient is new to me today: No - Critical Care Critical Care patient: No - Discharge Referral Referred to [facility] Med P.C.: No
[2018-11-09] MEDS: ALBUTEROL SO4 0.083% IH SOL 2.5 MG/3 ML VIAL.NEB. NEB SCH (08:39)
[2018-11-09] MEDS ORDERED: risperiDONE 2 MG TABLET PO SCH (10:00)
[2018-11-09] MEDS ORDERED: SERTRALINE HCL 25 MG TABLET (FP) PO SCH (10:00)
[2018-11-09] MEDS ORDERED: METHADONE 80 MG, METHADONE 10 MG PO SCH (10:00)
[2018-11-09] MEDS ORDERED: BUDESONIDE/FORMETEROL FUMARATE 160/4.5 mcg INHALER IH SCH (10:00)
[2018-11-09] MEDS ORDERED: PT OWN MED DRAWER 7, Y5N ONE (10:25)
[2018-11-09] MEDS ORDERED: DEXTROSE 5%-WATER 100 ML IVPB ONE (10:26)
[2018-11-09] MEDS: CEFTRIAXONE 2 GM in DEXTROSE 5%-WATER 100 ML IVPB SCH (10:28)
[2018-11-09] MEDS: FOLIC ACID 1 MG TABLET (FP) PO SCH (10:30)
[2018-11-09] MEDS: ENOXAPARIN NA (PORCINE) 40 MG/0.4 ML DISP.SYRIN SQ SCH (10:30)
[2018-11-09] MEDS: SERTRALINE HCL 25 MG TABLET (FP) PO SCH (10:30)
[2018-11-09] MEDS: GABAPENTIN 300 MG CAPSULE (FP) PO SCH ×2 (10:31→21:50)
[2018-11-09] MEDS ORDERED: PNEUMOC 13-VAL CONJ-DIP CRM/PF 0.5 ML DISP.SYRIN IM ONE (11:00)
[2018-11-09] MEDS: ALBUTEROL SO4 0.083% IH SOL 2.5 MG/3 ML VIAL.NEB. NEB PRN ×2 (11:23→20:50)
[2018-11-09] MEDS: AZITHROMYCIN IVPB 500 MG/250 ML BAG IVPB SCH (11:52)
[2018-11-09] MEDS: POLYETHYLENE GLYCOL 3350 255 GM BTL PO SCH (11:53)
[2018-11-09] MEDS: BUDESONIDE/FORMETEROL FUMARATE 160/4.5 mcg INHALER IH SCH ×2 (11:53→21:49)
[2018-11-09] MEDS ORDERED: PNEUMOCOCCAL 23 VACCINE 0.5 ML VIAL IM ONE (12:00)
--- NOTE | 2018-11-09 12:46 | PN ---
Progress Note (short form) - Note Progress Note: NAD no fevers feels improved Vital Signs Period Temp Pulse Resp BP Sys/Cornelius Pulse Ox Last 24 Hr 98.4 F-98.5 F 85-98 16-16 99-110/55-68 93-97 cor-rrr lungs clear abd soft,nt ext no edema CBC, BMP 11/09/18 06:00 11/09/18 06:00 Microbiology 11/08/18 04:23 Sputum - Expectorated Gram Stain - Final 11/08/18 04:23 Sputum - Expectorated Sputum Culture - Preliminary NORMAL RESPIRATORY RANDALL 11/08/18 04:23 Urine - Urine Clean Catch Urine Culture - Final Lactose Fermenting Neg Bacilli Staphylococcus Coagulase Neg 11/08/18 03:35 Blood - Peripheral Venous Blood Culture - Preliminary NO GROWTH OBTAINED AFTER 24 HOURS, INCUBATION TO CONTINUE FOR 4 DAYS. 11/08/18 03:35 Blood - Peripheral Venous Blood Culture - Preliminary NO GROWTH OBTAINED AFTER 24 HOURS, INCUBATION TO CONTINUE FOR 4 DAYS. 11/08/18 12:30 Urine For Antigen Detection Legionella Antigen - Final 11/08/18 12:30 Urine For Antigen Detection Streptococcus pneumoniae Antigen (M - Final a/p bilateral infiltrates with cough and fever check viral pcr panel continue rocephin/zithromax esr/crp hiv pending anemia history of esoophageal cancer would get records if possible
--- NOTE | 2018-11-09 16:07 | EKG ---
Test Reason : Blood Pressure : / mmHG Vent. Rate : 065 BPM Atrial Rate : 065 BPM P-R Int : 156 ms QRS Dur : 084 ms QT Int : 452 ms P-R-T Axes : 051 011 034 degrees QTc Int : 470 ms NORMAL SINUS RHYTHM NORMAL ECG WHEN COMPARED WITH ECG OF 21-APR-2015 00:54, NO SIGNIFICANT CHANGE WAS FOUND Confirmed by KIM CAMERON MD ([id number]) on 11/09/2018 4:07:11 PM Referred By: Confirmed By:KIM CAMERON MD
[2018-11-09] MEDS: MOMETASONE FUROATE 220 MCG/IH INHALER IH SCH (21:49)
[2018-11-09] MEDS: ATORVASTATIN CA 20 MG TABLET (FP) PO SCH (21:50)
[2018-11-10] MEDS ORDERED: METHADONE HCL 10 MG TABLET ONE (05:58)
[2018-11-10] MEDS: LEVOTHYROXINE NA 50 MCG TABLET (FP) PO SCH (06:19)
[2018-11-10] MEDS: METHADONE 80 MG, METHADONE 10 MG PO SCH (06:19)
[2018-11-10] MEDS: clonazePAM 0.5 MG TABLET PO SCH ×3 (06:19→21:11)
[2018-11-10 08:56] LABS: HEMATOCRIT 29.5 % (32.4-45.2); HEMOGLOBIN 9.5 GM/dL (10.7-15.3); MCH 27.2 pg (25.7-33.7); MCHC 32.2 g/dl (32.0-36.0); MEAN CELL VOLUME 84.5 fl (80-96); MEAN PLT VOLUME 7.4 fl (7.5-11.1); PLATELET COUNT 428 K/MM3 (134-434); RBC 3.49 M/mm3 (3.60-5.2); RDW 17.2 % (11.6-15.6); WHITE BLOOD COUNT 9.5 K/mm3 (4.0-10.0)
[2018-11-10] MEDS ORDERED: PT OWN MED DRAWER 7, Y5N ONE (09:05)
[2018-11-10] MEDS ORDERED: DEXTROSE 5%-WATER 100 ML IVPB ONE (09:06)
[2018-11-10] MEDS: ENOXAPARIN NA (PORCINE) 40 MG/0.4 ML DISP.SYRIN SQ SCH (09:12)
[2018-11-10] MEDS: CEFTRIAXONE 2 GM in DEXTROSE 5%-WATER 100 ML IVPB SCH (09:12)
[2018-11-10] MEDS: risperiDONE 1 MG TABLET (FP) PO SCH (09:13)
[2018-11-10] MEDS: POLYETHYLENE GLYCOL 3350 255 GM BTL PO SCH (09:13)
[2018-11-10] MEDS: SERTRALINE HCL 25 MG TABLET (FP) PO SCH (09:13)
[2018-11-10] MEDS: FOLIC ACID 1 MG TABLET (FP) PO SCH (09:13)
[2018-11-10] MEDS: GABAPENTIN 300 MG CAPSULE (FP) PO SCH ×2 (09:13→21:12)
[2018-11-10] MEDS: BUDESONIDE/FORMETEROL FUMARATE 160/4.5 mcg INHALER IH SCH ×2 (09:15→21:12)
[2018-11-10 09:16] LABS: ALBUMIN 2.2 g/dl (3.4-5.0); BILIRUBIN,TOTAL 0.3 mg/dL (0.2-1); BLOOD UREA NITROGEN 6.4 mg/dL (7-18); CALCIUM 8.8 mg/dL (8.5-10.1); CREATININE 0.7 mg/dL (0.55-1.3); POTASSIUM 4.4 mmol/L (3.5-5.1); TOT PROT 6.2 g/dl (6.4-8.2)
[2018-11-10] MEDS: AZITHROMYCIN IVPB 500 MG/250 ML BAG IVPB SCH (10:48)
--- NOTE | 2018-11-10 11:40 | PN ---
Teaching Attending Note Name of Resident: Jelly Barry ATTENDING PHYSICIAN STATEMENT I saw and evaluated the patient. I reviewed the resident's note and discussed the case with the resident. I agree with the resident's findings and plan as documented. SUBJECTIVE:much improved. denies Cp, SOb, fever, chills, cough, N/V/C/D OBJECTIVE: Last Vital Signs Temp Pulse Resp BP Pulse Ox 98.3 F 71 20 135/87 95 11/10/18 06:00 11/10/18 06:00 11/10/18 06:00 11/10/18 06:00 11/09/18 19:49 General NAD Lungs CTA B/L no wheezing/rales/rhonchi ASSESSMENT AND PLAN: 52yo F with PMH esophageal ca diagnosed in 2014 s/p chemo and radiation, remote hx of IVDA now on methadone,asthma and recently diagnosed hypothyroid and recent hospitalization at [facility] for PNA where she was hospitalized for 3 days and then sent home on levaquin which she been taking for 2 days presented with SOB and lethargy since discharge and found to be hypotensive on arrival 1. B/L PNA-afebrile and leukocytosis resolved. viral panel sent. on azithro and ceftriaxone day 3. ID on board. f/u Cx. HIV negative 2. Uncomplicated UTI-normal maryana 3. elevated alk phos- GGT elevated as well. check RUQ u/s to evaluate 4. Hypotension- resolved 5. esophageal ca s/p chemo and Rtx- soft diet. outpatient follow up 6. remote hx of IVDA on methadone- dose confirmed with [facility]. 90mg 7. DVT ppx- lovenox
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
[2018-11-10] MEDS: MOMETASONE FUROATE 220 MCG/IH INHALER IH SCH (21:12)
[2018-11-10] MEDS: ATORVASTATIN CA 20 MG TABLET (FP) PO SCH (21:12)
[2018-11-10] MEDS: ALBUTEROL SO4 0.083% IH SOL 2.5 MG/3 ML VIAL.NEB. NEB PRN (21:35)
[2018-11-11] MEDS: METHADONE 80 MG, METHADONE 10 MG PO SCH ×2 (06:02→10:02)
[2018-11-11] MEDS: LEVOTHYROXINE NA 50 MCG TABLET (FP) PO SCH (06:05)
[2018-11-11] MEDS: clonazePAM 0.5 MG TABLET PO SCH ×3 (06:05→21:10)
[2018-11-11 08:32] LABS: BASO % 0.4 % (0-2.0); EOS % 2.6 % (0-4.5); HEMATOCRIT 28.9 % (32.4-45.2); HEMOGLOBIN 9.5 GM/dL (10.7-15.3); LYMPH % 17.5 % (8-40); MCH 27.3 pg (25.7-33.7); MCHC 32.8 g/dl (32.0-36.0); MEAN CELL VOLUME 83.3 fl (80-96); MEAN PLT VOLUME 7.1 fl (7.5-11.1); MONO % 7.7 % (3.8-10.2); NEUT % 71.8 % (42.8-82.8); PLATELET COUNT 442 K/MM3 (134-434); RBC 3.47 M/mm3 (3.60-5.2); RDW 17.1 % (11.6-15.6); WHITE BLOOD COUNT 10.4 K/mm3 (4.0-10.0)
[2018-11-11 09:10] LABS: ALBUMIN 2.2 g/dl (3.4-5.0); BILIRUBIN,TOTAL 0.3 mg/dL (0.2-1); BLOOD UREA NITROGEN 6.7 mg/dL (7-18); CALCIUM 8.8 mg/dL (8.5-10.1); CREATININE 0.7 mg/dL (0.55-1.3); MAGNESIUM 2.1 mg/dL (1.8-2.4); PHOSPHOROUS 4.2 mg/dL (2.5-4.9); POTASSIUM 4.4 mmol/L (3.5-5.1); TOT PROT 6.2 g/dl (6.4-8.2)
[2018-11-11] MEDS ORDERED: METHADONE HCL 10 MG TABLET ONE (09:48)
[2018-11-11] MEDS ORDERED: METHADONE HCL 40 MG DISPERSABLE TABLET ONE (09:48)
[2018-11-11] MEDS ORDERED: DEXTROSE 5%-WATER 100 ML IVPB ONE (09:50)
[2018-11-11] MEDS: AZITHROMYCIN IVPB 500 MG/250 ML BAG IVPB SCH (10:01)
[2018-11-11] MEDS: GABAPENTIN 300 MG CAPSULE (FP) PO SCH ×2 (10:01→21:11)
[2018-11-11] MEDS: SERTRALINE HCL 25 MG TABLET (FP) PO SCH (10:02)
[2018-11-11] MEDS: FOLIC ACID 1 MG TABLET (FP) PO SCH (10:02)
[2018-11-11] MEDS: risperiDONE 1 MG TABLET (FP) PO SCH (10:02)
[2018-11-11] MEDS: POLYETHYLENE GLYCOL 3350 255 GM BTL PO SCH (10:03)
[2018-11-11] MEDS: ENOXAPARIN NA (PORCINE) 40 MG/0.4 ML DISP.SYRIN SQ SCH (10:03)
[2018-11-11] MEDS: BUDESONIDE/FORMETEROL FUMARATE 160/4.5 mcg INHALER IH SCH ×2 (10:04→21:11)
[2018-11-11] MEDS: CEFTRIAXONE 2 GM in DEXTROSE 5%-WATER 100 ML IVPB SCH (12:09)
--- NOTE | 2018-11-11 12:32 | PN ---
Progress Note, Physician History of Present Illness: AWAKE, ALERT SEATED IN BED BREATHING NON-LABORED ON RA LESS COUGH, NOW PRODUCTIVE OF WHITE SPUTUM TEMPS DOWN AFEBRILE SPUTUM NORMAL RANDALL LEGIONELLA/ PNEUMOCOCCAL AG (-) WBC 10.4 HIV(-) RESP VIRAL PANEL PENDING - Current Medication List Current Medications: Active Medications Albuterol Sulfate (Ventolin 0.083% Nebulizer Soln -) 1 amp NEB RQID PRN PRN Reason: WHEEZING Last Admin: 11/10/18 21:35 Dose: 1 amp Atorvastatin Calcium (Lipitor -) 20 mg PO HS [facility] Last Admin: 11/10/18 21:12 Dose: 20 mg Budesonide/Formoterol Fumarate (Symbicort 160/4.5mcg -) 2 puff IH BID [facility] Last Admin: 11/11/18 10:04 Dose: 2 puff Clonazepam (Klonopin -) 2 mg PO TID [facility] Last Admin: 11/11/18 06:05 Dose: 2 mg Enoxaparin Sodium (Lovenox -) 40 mg SQ DAILY [facility] Last Admin: 11/11/18 10:03 Dose: 40 mg Folic Acid (Folic Acid -) 1 mg PO DAILY [facility] Last Admin: 11/11/18 10:02 Dose: 1 mg Gabapentin (Neurontin -) 300 mg PO BID [facility] Last Admin: 11/11/18 10:01 Dose: 300 mg Azithromycin (Zithromax 500mg Ivpb (Pre-Docked)) 500 mg in 250 mls @ 250 mls/ hr IVPB DAILY [facility] Last Admin: 11/11/18 10:01 Dose: 250 mls/hr Ceftriaxone Sodium 2 gm/ (Dextrose) 100 mls @ 200 mls/hr IVPB DAILY [facility]; Protocol Last Admin: 11/11/18 12:09 Dose: 200 mls/hr Levothyroxine Sodium (Synthroid -) 50 mcg PO DAILY@0700 [facility] Last Admin: 11/11/18 06:05 Dose: 50 mcg Methadone HCl 80 mg/ Methadone (HCl 10 mg) 90 mg PO DAILY@0600 [facility] Last Admin: 11/11/18 10:02 Dose: 90 mg Mometasone Furoate (Asmanex 220mcg -) 2 puff IH HS [facility] Last Admin: 11/10/18 21:12 Dose: 2 puff Polyethylene Glycol (Miralax (For Bowel Prep) -) 17 gm PO DAILY [facility] Last Admin: 11/11/18 10:03 Dose: 17 grams Risperidone (Risperdal -) 2 mg PO DAILY [facility] Last Admin: 11/11/18 10:02 Dose: 2 mg Sertraline HCl (Zoloft -) 25 mg PO DAILY [facility] Last Admin: 11/11/18 10:02 Dose: 25 mg Zolpidem Tartrate (Ambien -) 10 mg PO HS PRN PRN Reason: INSOMNIA - Objective Vital Signs: Vital Signs Temperature 98.6 F 11/11/18 06:28 Pulse Rate 66 11/11/18 06:28 Respiratory Rate 18 11/11/18 06:28 Blood Pressure 144/76 11/11/18 06:28 O2 Sat by Pulse Oximetry (%) 92 L 11/10/18 21:00 Constitutional: Yes: No Distress Eyes: Yes: Conjunctiva Clear Cardiovascular: Yes: Regular Rate and Rhythm, S1, S2 Respiratory: Yes: Other (+ SCATTERRED RHONCHI, BIBASILAR CREPITATIONS) Gastrointestinal: Yes: Normal Bowel Sounds, Soft. No: Tenderness Edema: No Labs: CBC, BMP 11/11/18 07:35 11/11/18 07:35 INR, PTT INR 1.25 (0.83-1.09) H 11/08/18 03:40 Assessment/Plan ATYPICAL BILATERAL PNEUMONITIS ? VIRAL EXACERBATION COPD PCN ALLERGY HX ESOPHAGEAL CA MAY SUBSTITUTE PO ZITHROMAX X 7D F/U VIRAL RESP PANEL
--- NOTE | 2018-11-11 14:32 | PN ---
Physical Exam: SUBJECTIVE: Patient seen and examined. She reports feeling much better than yesterday. OBJECTIVE: Vital Signs Period Temp Pulse Resp BP Sys/Cornelius Pulse Ox Last 24 Hr 98.2 F-98.7 F 66-83 18-20 91-144/59-76 92-94 orthostatics: lying 99/51 P62, sitting 90/58 P63, standing 77/51 P66 GENERAL: The patient is awake, alert, and fully oriented, in no acute distress. Was resting comfortably. HEAD: Normal with no signs of trauma. EYES: PERRL, extraocular movements intact, sclera anicteric, conjunctiva clear. No ptosis. ENT: Ears normal, nares patent, moist mucous membranes. NECK: Trachea midline, full range of motion, supple. LUNGS: Scattered rales, no accessory muscle use HEART: Regular rate and rhythm, S1, S2 without murmur, rub or gallop. ABDOMEN: Soft, nontender, nondistended, normoactive bowel sounds EXTREMITIES: warm, well-perfused, no edema. NEUROLOGICAL: Cranial nerves II through XII grossly intact. Normal speech, gait not observed. PSYCH: Normal mood, normal affect. SKIN: Warm, dry, normal turgor, no rashes or lesions noted Laboratory Results - last 24 hr 11/11/18 11/11/18 07:35 07:35 WBC 10.4 H RBC 3.47 L Hgb 9.5 L Hct 28.9 L MCV 83.3 MCH 27.3 MCHC 32.8 RDW 17.1 H Plt Count 442 H MPV 7.1 L Absolute Neuts (auto) 7.5 Neutrophils % 71.8 Lymphocytes % 17.5 D Monocytes % 7.7 Eosinophils % 2.6 Basophils % 0.4 Nucleated RBC % 0 Sodium 139 Potassium 4.4 Chloride 101 Carbon Dioxide 32 Anion Gap 6 L BUN 6.7 L Creatinine 0.7 Est GFR (CKD-EPI)AfAm 116.27 Est GFR (CKD-EPI)NonAf 100.32 Random Glucose 80 Calcium 8.8 Phosphorus 4.2 Magnesium 2.1 Total Bilirubin 0.3 AST 21 ALT 25 Alkaline Phosphatase 205 H Total Protein 6.2 L Albumin 2.2 L Active Medications Generic Name Dose Route Start Last Admin Trade Name Freq PRN Reason Stop Dose Admin Albuterol Sulfate 1 amp 11/09/18 08:28 11/10/18 21:35 Ventolin 0.083% Nebulizer Soln - NEB 1 amp RQID PRN Administration WHEEZING Atorvastatin Calcium 20 mg 11/08/18 22:00 11/10/18 21:12 Lipitor - PO 20 mg HS [facility] Administration Budesonide/Formoterol Fumarate 2 puff 11/09/18 10:00 11/11/18 10:04 Symbicort 160/4.5mcg - IH 2 puff BID [facility] Administration Clonazepam 2 mg 11/09/18 06:00 11/11/18 14:13 Klonopin - PO 2 mg TID [facility] Administration Enoxaparin Sodium 40 mg 11/08/18 10:00 11/11/18 10:03 Lovenox - SQ 40 mg DAILY [facility] Administration Folic Acid 1 mg 11/08/18 10:00 11/11/18 10:02 Folic Acid - PO 1 mg DAILY [facility] Administration Gabapentin 300 mg 11/09/18 10:00 11/11/18 10:01 Neurontin - PO 300 mg BID [facility] Administration Azithromycin 500 mg in 250 mls @ 250 mls/hr 11/09/18 10:00 11/11/18 10:01 Zithromax 500mg Ivpb (Pre-Docked) IVPB 250 mls/hr DAILY [facility] Administration Ceftriaxone Sodium 2 gm/ 100 mls @ 200 mls/hr 11/09/18 10:00 11/11/18 12:09 Dextrose IVPB 200 mls/hr DAILY [facility] Administration Protocol Levothyroxine Sodium 50 mcg 11/09/18 07:00 11/11/18 06:05 Synthroid - PO 50 mcg DAILY@0700 [facility] Administration Methadone HCl 80 mg/ Methadone 90 mg 11/09/18 07:30 11/11/18 10:02 HCl 10 mg PO 90 mg DAILY@0600 [facility] Administration Mometasone Furoate 2 puff 11/08/18 10:00 11/10/18 21:12 Asmanex 220mcg - IH 2 puff HS [facility] Administration Polyethylene Glycol 17 gm 11/08/18 10:00 11/11/18 10:03 Miralax (For Bowel Prep) - PO 17 grams DAILY [facility] Administration Risperidone 2 mg 11/09/18 10:35 11/11/18 10:02 Risperdal - PO 2 mg DAILY [facility] Administration Sertraline HCl 25 mg 11/09/18 10:00 11/11/18 10:02 Zoloft - PO 25 mg DAILY [facility] Administration Zolpidem Tartrate 10 mg 11/08/18 22:00 Ambien - PO HS PRN INSOMNIA ASSESSMENT/PLAN: Ms. Larson is a 52yo female with PMH esophageal ca 2015 s/p chemo and radiation, hx of IVDU on methadone 90mg, hypothyroidism, HLD who presents with dyspnea and weakness. Was found to have b/l PNA. Records were requested from recent hospital course but not received. #b/l PNA 92% on 4L NC, not in distress in bed, pt was orthostatic positive (lying 99/51 P62, sitting 90/58 P63, standing 77/51 P66) but denies dizziness while standing -continue ceftriaxone and azithromycin -continue asthmanex, symbicort, and albuterol -switch to PO abx at d/c -RT consult for pre and post test -consider d/c tomorrow if home oxygen can be arranged #hx IVDU on methadone [facility] pt -continue methadone -continue VS checks for hypotension #hx esophageal ca -soft diet #hypothyroidism -continue Synthroid #HLD -continue statin FEN No standing fluids monitor lytes soft diet DVT Ppe Lovenox Visit type - Emergency Visit Emergency Visit: Yes ED Registration Date: 11/08/18 Care time: The patient presented to the Emergency Department on the above date and was hospitalized for further evaluation of their emergent condition. - New Patient This patient is new to me today: Yes Date on this admission: 11/11/18 - Critical Care Critical Care patient: No - Discharge Referral Referred to [facility] Med P.C.: No ATTENDING PHYSICIAN STATEMENT I saw and evaluated the patient. I reviewed the resident's note and discussed the case with the resident. I agree with the resident's findings and plan as documented. SUBJECTIVE: OBJECTIVE: ASSESSMENT AND PLAN:
--- NOTE | 2018-11-11 15:06 | PN ---
Teaching Attending Note Name of Resident: Pari Angel ATTENDING PHYSICIAN STATEMENT I saw and evaluated the patient. I reviewed the resident's note and discussed the case with the resident. I agree with the resident's findings and plan as documented. SUBJECTIVE:clinically improved. denies Cp, SOB, fever, chills, N/V/C/D OBJECTIVE: Last Vital Signs Temp Pulse Resp BP Pulse Ox 98.7 F 83 18 91/61 94 L 11/11/18 10:00 11/11/18 10:00 11/11/18 10:00 11/11/18 10:00 11/11/18 09:00 General NAD Lungs CTA B/L no wheezing/rales/rhonchi ASSESSMENT AND PLAN: 52yo F with PMH esophageal ca diagnosed in 2014 s/p chemo and radiation, remote hx of IVDA now on methadone,asthma and recently diagnosed hypothyroid and recent hospitalization at [facility] for PNA where she was hospitalized for 3 days and then sent home on levaquin which she been taking for 2 days presented with SOB and lethargy since discharge and found to be hypotensive on arrival 1. B/L PNA-afebrile and leukocytosis resolved. viral panel sent. on azithro and ceftriaxone day 4. will d/w ID about transition to po. ID on board. f/u Cx. HIV negative 2. Uncomplicated UTI-normal maryana 3. elevated alk phos- GGT elevated as well. check RUQ u/s to evaluate 4. Hypotension- resolved 5. esophageal ca s/p chemo and Rtx- soft diet. outpatient follow up 6. remote hx of IVDA on methadone- dose confirmed with [facility]a ambrose. 90mg 7. DVT ppx- lovenox 8. spoke with present at bedside all questions answered verbalized understanding and agreement. anticipate discharge today vs tomorrow
[2018-11-11] MEDS: MOMETASONE FUROATE 220 MCG/IH INHALER IH SCH (21:09)
[2018-11-11] MEDS: ATORVASTATIN CA 20 MG TABLET (FP) PO SCH (21:11)
[2018-11-11] MEDS: ZOLPIDEM TARTRATE 5 MG TABLET PO PRN (21:19)
[2018-11-11 21:26] LABS: BASO % 0.4 % (0-2.0); EOS % 3.1 % (0-4.5); HEMATOCRIT 32.2 % (32.4-45.2); HEMOGLOBIN 9.9 GM/dL (10.7-15.3); MCH 26.3 pg (25.7-33.7); MCHC 30.7 g/dl (32.0-36.0); MEAN CELL VOLUME 85.7 fl (80-96); MEAN PLT VOLUME 7.5 fl (7.5-11.1); MONO % 5.6 % (3.8-10.2); NEUT % 74.9 % (42.8-82.8); PLATELET COUNT 450 K/MM3 (134-434); RBC 3.75 M/mm3 (3.60-5.2); RDW 17.6 % (11.6-15.6); WHITE BLOOD COUNT 11.5 K/mm3 (4.0-10.0)
[2018-11-12] MEDS ORDERED: METHADONE HCL 10 MG TABLET ONE (05:10)
[2018-11-12] MEDS ORDERED: METHADONE HCL 40 MG DISPERSABLE TABLET ONE (05:11)
[2018-11-12] MEDS: LEVOTHYROXINE NA 50 MCG TABLET (FP) PO SCH (06:19)
[2018-11-12] MEDS: clonazePAM 0.5 MG TABLET PO SCH ×3 (06:19→21:19)
[2018-11-12] MEDS: METHADONE 80 MG, METHADONE 10 MG PO SCH (06:19)
[2018-11-12 08:31] LABS: CALCIUM 9.2 mg/dL (8.5-10.1)
[2018-11-12 08:32] LABS: BLOOD UREA NITROGEN 6.8 mg/dL (7-18); CREATININE 0.7 mg/dL (0.55-1.3)
[2018-11-12] MEDS: AZITHROMYCIN IVPB 500 MG/250 ML BAG IVPB SCH (09:09)
[2018-11-12] MEDS: POLYETHYLENE GLYCOL 3350 255 GM BTL PO SCH (09:10)
[2018-11-12] MEDS: FOLIC ACID 1 MG TABLET (FP) PO SCH (09:10)
[2018-11-12] MEDS: SERTRALINE HCL 25 MG TABLET (FP) PO SCH (09:10)
[2018-11-12] MEDS: ENOXAPARIN NA (PORCINE) 40 MG/0.4 ML DISP.SYRIN SQ SCH (09:10)
[2018-11-12] MEDS: risperiDONE 1 MG TABLET (FP) PO SCH (09:10)
[2018-11-12] MEDS: GABAPENTIN 300 MG CAPSULE (FP) PO SCH ×2 (09:10→21:20)
[2018-11-12] MEDS: BUDESONIDE/FORMETEROL FUMARATE 160/4.5 mcg INHALER IH SCH ×2 (09:11→21:23)
[2018-11-12] MEDS ORDERED: DEXTROSE 5%-WATER 100 ML IVPB ONE (11:55)
[2018-11-12] MEDS: CEFTRIAXONE 2 GM in DEXTROSE 5%-WATER 100 ML IVPB SCH (12:16)
--- NOTE | 2018-11-12 17:51 | PN ---
Physical Exam: SUBJECTIVE: Patient seen and examined. She is feeling well today and is able to walk short distances without ROBLES. OBJECTIVE: Vital Signs Period Temp Pulse Resp BP Sys/Cornelius Pulse Ox Last 24 Hr 97.8 F-98.4 F 50-78 18-20 102-141/50-80 92-98 GENERAL: The patient is awake, alert, and fully oriented, in no acute distress. HEAD: Normal with no signs of trauma. EYES: PERRL, extraocular movements intact, sclera anicteric, conjunctiva clear. No ptosis. ENT: Ears normal, nares patent, moist mucous membranes. NECK: Trachea midline, full range of motion, supple. LUNGS: Breath sounds equal, scattered rales, no wheezes, no crackles, no accessory muscle use. HEART: Regular rate and rhythm, S1, S2 without murmur, rub or gallop. ABDOMEN: Soft, nontender, nondistended, normoactive bowel sounds EXTREMITIES: 2+ pulses, warm, well-perfused, no edema. NEUROLOGICAL: Cranial nerves II through XII grossly intact. Normal speech, gait normal. PSYCH: Normal mood, normal affect. SKIN: Warm, dry, normal turgor, no rashes or lesions noted Laboratory Results - last 24 hr 11/11/18 11/12/18 20:20 06:30 WBC 11.5 H RBC 3.75 Hgb 9.9 L Hct 32.2 L MCV 85.7 MCH 26.3 MCHC 30.7 L RDW 17.6 H Plt Count 450 H MPV 7.5 Absolute Neuts (auto) 8.6 H Neutrophils % 74.9 Lymphocytes % 16.0 Monocytes % 5.6 Eosinophils % 3.1 Basophils % 0.4 Nucleated RBC % 0 Sodium 140 Potassium 5.0 Chloride 100 Carbon Dioxide 32 Anion Gap 9 BUN 6.8 L Creatinine 0.7 Est GFR (CKD-EPI)AfAm 116.27 Est GFR (CKD-EPI)NonAf 100.32 Random Glucose 83 Calcium 9.2 Active Medications Generic Name Dose Route Start Last Admin Trade Name Freq PRN Reason Stop Dose Admin Albuterol Sulfate 1 amp 11/09/18 08:28 11/10/18 21:35 Ventolin 0.083% Nebulizer Soln - NEB 1 amp RQID PRN Administration WHEEZING Atorvastatin Calcium 20 mg 11/08/18 22:00 11/11/18 21:11 Lipitor - PO 20 mg HS [facility] Administration Budesonide/Formoterol Fumarate 2 puff 11/09/18 10:00 11/12/18 09:11 Symbicort 160/4.5mcg - IH 2 puff BID [facility] Administration Clonazepam 2 mg 11/09/18 06:00 11/12/18 13:51 Klonopin - PO 2 mg TID [facility] Administration Enoxaparin Sodium 40 mg 11/08/18 10:00 11/12/18 09:10 Lovenox - SQ 40 mg DAILY [facility] Administration Folic Acid 1 mg 11/08/18 10:00 11/12/18 09:10 Folic Acid - PO 1 mg DAILY [facility] Administration Gabapentin 300 mg 11/09/18 10:00 11/12/18 09:10 Neurontin - PO 300 mg BID [facility] Administration Azithromycin 500 mg in 250 mls @ 250 mls/hr 11/09/18 10:00 11/12/18 09:09 Zithromax 500mg Ivpb (Pre-Docked) IVPB 250 mls/hr DAILY [facility] Administration Ceftriaxone Sodium 2 gm/ 100 mls @ 200 mls/hr 11/09/18 10:00 11/12/18 12:16 Dextrose IVPB 200 mls/hr DAILY [facility] Administration Protocol Levothyroxine Sodium 50 mcg 11/09/18 07:00 11/12/18 06:19 Synthroid - PO 50 mcg DAILY@0700 [facility] Administration Methadone HCl 80 mg/ Methadone 90 mg 11/09/18 07:30 11/12/18 06:19 HCl 10 mg PO 90 mg DAILY@0600 [facility] Administration Mometasone Furoate 2 puff 11/08/18 10:00 11/11/18 21:09 Asmanex 220mcg - IH 2 puff HS [facility] Administration Polyethylene Glycol 17 gm 11/08/18 10:00 11/12/18 09:10 Miralax (For Bowel Prep) - PO 17 grams DAILY [facility] Administration Risperidone 2 mg 11/09/18 10:35 11/12/18 09:10 Risperdal - PO 2 mg DAILY [facility] Administration Sertraline HCl 25 mg 11/09/18 10:00 11/12/18 09:10 Zoloft - PO 25 mg DAILY [facility] Administration Zolpidem Tartrate 10 mg 11/08/18 22:00 11/11/18 21:19 Ambien - PO 10 mg HS PRN Administration INSOMNIA ASSESSMENT/PLAN: Ms. Larson is a 52yo female with PMH esophageal ca 2015 s/p chemo and radiation, hx of IVDU on methadone 90mg, hypothyroidism, HLD who presents with dyspnea and weakness. Was found to have b/l PNA. Records were requested from [place]. Pt was on levofloxacin prior to admission. #b/l PNA Pre and post test showed 87% at rest and 92% after walking on 3L NC. Pt being setup with home oxygen. Awaiting equipment before discharge. -start azithromycin 500mg daily x 7 days after discharge -continue asthmanex, symbicort, and albuterol #hx IVDU on methadone [facility] pt -continue methadone -continue VS checks for hypotension #hx esophageal ca -soft diet #hypothyroidism -continue Synthroid #HLD -continue statin FEN No standing fluids monitor lytes soft diet DVT Ppe Lovenox Disposition: Pt should be d/c'ed tomorrow pending home oxygen equipment. Rx sent to pharmacy. Visit type - Emergency Visit Emergency Visit: Yes ED Registration Date: 11/08/18 Care time: The patient presented to the Emergency Department on the above date and was hospitalized for further evaluation of their emergent condition. - New Patient This patient is new to me today: No - Critical Care Critical Care patient: No - Discharge Referral Referred to [facility] Med P.C.: No ATTENDING PHYSICIAN STATEMENT I saw and evaluated the patient. I reviewed the resident's note and discussed the case with the resident. I agree with the resident's findings and plan as documented. SUBJECTIVE: OBJECTIVE: ASSESSMENT AND PLAN:
--- NOTE | 2018-11-12 18:17 | PN ---
Teaching Attending Note Name of Resident: Pari Angel ATTENDING PHYSICIAN STATEMENT I saw and evaluated the patient. I reviewed the resident's note and discussed the case with the resident. I agree with the resident's findings and plan as documented. SUBJECTIVE: Patient is feeling better, oxygenating better but still needing oxygen at home. OBJECTIVE: Vital Signs Temperature 98.3 F 11/12/18 17:04 Pulse Rate 66 11/12/18 17:04 Respiratory Rate 20 11/12/18 17:04 Blood Pressure 109/50 L 11/12/18 17:04 O2 Sat by Pulse Oximetry (%) 92 L 11/12/18 16:14 GENERAL: The patient is awake, alert, and fully oriented, in no acute distress. HEAD: Normal with no signs of trauma. EYES: PERRL, extraocular movements intact, sclera anicteric, conjunctiva clear. ENT: Ears normal, oropharynx clear without exudates, moist mucous membranes. NECK: Trachea midline, full range of motion, supple. LUNGS: decreased Breath sounds bl, no wheezes, no crackles, no accessory muscle use. HEART: Regular rate and rhythm, S1, S2 without murmur, rub or gallop. ABDOMEN: Soft, nontender, nondistended, normoactive bowel sounds, no guarding, no rebound, no hepatosplenomegaly, no masses. EXTREMITIES: 2+ pulses, warm, well-perfused, no edema. NEUROLOGICAL: Cranial nerves II through XII grossly intact. Normal speech, gait is stable. PSYCH: Normal mood, normal affect. SKIN: Warm, dry, normal turgor, no rashes or lesions noted CBCD WBC 11.5 K/mm3 (4.0-10.0) H 11/11/18 20:20 RBC 3.75 M/mm3 (3.60-5.2) 11/11/18 20:20 Hgb 9.9 GM/dL (10.7-15.3) L 11/11/18 20:20 Hct 32.2 % (32.4-45.2) L 11/11/18 20:20 MCV 85.7 fl (80-96) 11/11/18 20:20 MCHC 30.7 g/dl (32.0-36.0) L 11/11/18 20:20 RDW 17.6 % (11.6-15.6) H 11/11/18 20:20 Plt Count 450 K/MM3 (134-434) H 11/11/18 20:20 MPV 7.5 fl (7.5-11.1) 11/11/18 20:20 CMP Sodium 140 mmol/L (136-145) 11/12/18 06:30 Potassium 5.0 mmol/L (3.5-5.1) 11/12/18 06:30 Chloride 100 mmol/L (98-107) 11/12/18 06:30 Carbon Dioxide 32 mmol/L (21-32) 11/12/18 06:30 Anion Gap 9 MMOL/L (8-16) 11/12/18 06:30 BUN 6.8 mg/dL (7-18) L 11/12/18 06:30 Creatinine 0.7 mg/dL (0.55-1.3) 11/12/18 06:30 Random Glucose 83 mg/dL (74-106) 11/12/18 06:30 Calcium 9.2 mg/dL (8.5-10.1) 11/12/18 06:30 Total Bilirubin 0.3 mg/dL (0.2-1) 11/11/18 07:35 AST 21 U/L (15-37) 11/11/18 07:35 ALT 25 U/L (13-61) 11/11/18 07:35 Alkaline Phosphatase 205 U/L (45-117) H 11/11/18 07:35 Total Protein 6.2 g/dl (6.4-8.2) L 11/11/18 07:35 Albumin 2.2 g/dl (3.4-5.0) L 11/11/18 07:35 CARDIAC ENZYMES Troponin I < 0.02 ng/ml (0.00-0.05) 11/08/18 03:40 Current Medications Generic Name Dose Route Start Last Admin Trade Name Freq PRN Reason Stop Dose Admin Albuterol Sulfate 1 amp 11/09/18 08:28 11/10/18 21:35 Ventolin 0.083% Nebulizer Soln - NEB 1 amp RQID PRN Administration WHEEZING Atorvastatin Calcium 20 mg 11/08/18 22:00 11/11/18 21:11 Lipitor - PO 20 mg HS [facility]UEL Administration Budesonide/Formoterol Fumarate 2 puff 11/09/18 10:00 11/12/18 09:11 Symbicort 160/4.5mcg - IH 2 puff BID [facility] Administration Clonazepam 2 mg 11/09/18 06:00 11/12/18 13:51 Klonopin - PO 2 mg TID [facility] Administration Enoxaparin Sodium 40 mg 11/08/18 10:00 11/12/18 09:10 Lovenox - SQ 40 mg DAILY [facility] Administration Folic Acid 1 mg 11/08/18 10:00 11/12/18 09:10 Folic Acid - PO 1 mg DAILY [facility] Administration Gabapentin 300 mg 11/09/18 10:00 11/12/18 09:10 Neurontin - PO 300 mg BID [facility] Administration Azithromycin 500 mg in 250 mls @ 250 mls/hr 11/09/18 10:00 11/12/18 09:09 Zithromax 500mg Ivpb (Pre-Docked) IVPB 250 mls/hr DAILY [facility] Administration Ceftriaxone Sodium 2 gm/ 100 mls @ 200 mls/hr 11/09/18 10:00 11/12/18 12:16 Dextrose IVPB 200 mls/hr DAILY [facility] Administration Protocol Levothyroxine Sodium 50 mcg 11/09/18 07:00 11/12/18 06:19 Synthroid - PO 50 mcg DAILY@0700 [facility] Administration Methadone HCl 80 mg/ Methadone 90 mg 11/09/18 07:30 11/12/18 06:19 HCl 10 mg PO 90 mg DAILY@0600 [facility] Administration Mometasone Furoate 2 puff 11/08/18 10:00 11/11/18 21:09 Asmanex 220mcg - IH 2 puff HS MANUEL Administration Polyethylene Glycol 17 gm 11/08/18 10:00 11/12/18 09:10 Miralax (For Bowel Prep) - PO 17 grams DAILY [facility] Administration Risperidone 2 mg 11/09/18 10:35 11/12/18 09:10 Risperdal - PO 2 mg DAILY [facility] Administration Sertraline HCl 25 mg 11/09/18 10:00 11/12/18 09:10 Zoloft - PO 25 mg DAILY [facility] Administration Zolpidem Tartrate 10 mg 11/08/18 22:00 11/11/18 21:19 Ambien - PO 10 mg HS PRN Administration INSOMNIA Home Medications Medication Instructions Recorded Zolpidem Tartrate [Ambien] 10 mg PO HS 10/14/11 Albuterol 0.083% Nebulizer Swapna 1 neb NEB QID 04/20/15 [Ventolin 0.083% Nebulizer Soln -] Atorvastatin Ca [Lipitor] 40 mg PO HS 04/20/15 Clonazepam 2 mg PO TID 04/20/15 Levothyroxine [Synthroid -] 50 mcg PO ACBK 01/03/18 Risperidone [Risperdal -] 2 mg PO DAILY 01/03/18 Guaifenesin 100 mg PO QID PRN #1 bottle 02/27/18 Albuterol Sulfate Inhaler - 2 inh PO QID PRN #1 inhaler 04/15/18 [Ventolin HFA Inhaler -] Methadone [Dolophine -] 90 mg PO DAILY@0600 06/04/18 Polyethylene Glycol 3350 [Miralax 17 gm PO DAILY #1 bottle 06/04/18 255 gm Btl -] Budesonide/Formeterol Fumarate 2 puff IH BID 11/08/18 [SYMBICORT 160/4.5mcg -] Diphenhydramine [Benadryl Capsule 50 mg PO DAILY 11/08/18 -] Gabapentin 300 mg PO BID 11/08/18 Sertraline HCl [Zoloft] 25 tab PO DAILY 11/08/18 Azithromycin [Zithromax] 500 mg PO DAILY 7 Days #7 tablet 11/12/18 hydrOXYzine PAMOATE [Vistaril -] 50 mg PO BID 11/12/18 Microbiology 11/08/18 03:35 Blood - Peripheral Venous Blood Culture - Preliminary NO GROWTH OBTAINED AFTER 96 HOURS, INCUBATION TO CONTINUE FOR 1 DAYS. 11/08/18 03:35 Blood - Peripheral Venous Blood Culture - Preliminary NO GROWTH OBTAINED AFTER 96 HOURS, INCUBATION TO CONTINUE FOR 1 DAYS. 11/08/18 04:23 Sputum - Expectorated Gram Stain - Final 11/08/18 04:23 Sputum - Expectorated Sputum Culture - Final NORMAL RESPIRATORY RANDALL 11/08/18 04:23 Urine - Urine Clean Catch Urine Culture - Final Lactose Fermenting Neg Bacilli Staphylococcus Coagulase Neg 11/08/18 12:30 Urine For Antigen Detection Legionella Antigen - Final 11/08/18 12:30 Urine For Antigen Detection Streptococcus pneumoniae Antigen (M - Final ASSESSMENT AND PLAN: Patient is a 52yo Female with PMHx esophageal ca diagnosed in 2015 s/p chemo and radiation, hx of IVDA now on methadone,asthma and recently diagnosed hypothyroid and recent hospitalization at [facility] for PNA where she was hospitalized for 3 days and then sent home on levaquin which she been taking for 2 days presented with SOB and lethargy since discharge and found to be hypotensive on arrival # Acute B/L atypical PNA- most likely viral , on IV zithromax and Rocephin day 5. discharge the patient in am for 6 more days on po zithromax 500mg as per Ids recommendations , Hiv is negative, pre and post oxygen, saturation 92% on 3 liter oxygen , patient will need oxygen condenser at home, patient uses bipap at night. follow with pulmonary as an outpatient. also oxygen tank will be delivered in am , once oxygen tank is arranged discharge the patient home in am. # Uncomplicated UTI- on IV Rocephin which will cover Lactose Fermenting Neg Bacilli # elevated alk phos- GGT elevated as well. check RUQ u/s s/p cholecystectomy, mild fatty infiltration of the liver. follow with GI as an outpatient. # Hypotension- resolved # Hx of esophageal ca s/p chemo and Rtx- soft diet. outpatient follow up # Hx of IVDA on methadone- [facility] discharge patient in am once oxygen tank is arranged.
[2018-11-12] MEDS: ZOLPIDEM TARTRATE 5 MG TABLET PO PRN (21:20)
[2018-11-12] MEDS: ATORVASTATIN CA 20 MG TABLET (FP) PO SCH (21:20)
[2018-11-12] MEDS: MOMETASONE FUROATE 220 MCG/IH INHALER IH SCH (21:22)
[2018-11-13] MEDS ORDERED: METHADONE HCL 40 MG DISPERSABLE TABLET ONE (05:33)
[2018-11-13] MEDS ORDERED: METHADONE HCL 10 MG TABLET ONE (05:33)
[2018-11-13] MEDS: clonazePAM 0.5 MG TABLET PO SCH ×2 (05:50→13:50)
[2018-11-13] MEDS: METHADONE 80 MG, METHADONE 10 MG PO SCH (05:50)
[2018-11-13] MEDS: LEVOTHYROXINE NA 50 MCG TABLET (FP) PO SCH (06:05)
[2018-11-13] MEDS ORDERED: DEXTROSE 5%-WATER 100 ML IVPB ONE (10:19)
[2018-11-13] MEDS: GABAPENTIN 300 MG CAPSULE (FP) PO SCH (10:23)
[2018-11-13] MEDS: risperiDONE 1 MG TABLET (FP) PO SCH (10:23)
[2018-11-13] MEDS: CEFTRIAXONE 2 GM in DEXTROSE 5%-WATER 100 ML IVPB SCH (10:23)
[2018-11-13] MEDS: ENOXAPARIN NA (PORCINE) 40 MG/0.4 ML DISP.SYRIN SQ SCH (10:24)
[2018-11-13] MEDS: SERTRALINE HCL 25 MG TABLET (FP) PO SCH (10:24)
[2018-11-13] MEDS: POLYETHYLENE GLYCOL 3350 255 GM BTL PO SCH (10:24)
[2018-11-13] MEDS: FOLIC ACID 1 MG TABLET (FP) PO SCH (10:24)
[2018-11-13] MEDS: BUDESONIDE/FORMETEROL FUMARATE 160/4.5 mcg INHALER IH SCH (10:34)
[2018-11-13] MEDS: AZITHROMYCIN IVPB 500 MG/250 ML BAG IVPB SCH (11:09)
[2018-11-13 17:01] VITALS: BP 95/49; PULSE 69; TEMP 98.2
--- NOTE | 2018-11-13 19:10 | PN ---
Teaching Attending Note Name of Resident: Pari Angel ATTENDING PHYSICIAN STATEMENT I saw and evaluated the patient. I reviewed the resident's note and discussed the case with the resident. I agree with the resident's findings and plan as documented. SUBJECTIVE: Feeling much improved. Dyspnea resolved. Cough productive of clear sputum - no hemoptysis. No fever/chills. OBJECTIVE: Afebrle, hemodynamically Stable. Desaturating off O2. Last Vital Signs Temp Pulse Resp BP Pulse Ox 98.2 F 69 20 115/65 L 95 11/13/18 16:59 11/13/18 16:59 11/13/18 16:59 11/13/18 16:59 11/13/18 09:00 HEENT - Atraumatic, normocephalic. Heart - S1, S2, RRR Lungs - few basal crackles. Abdomen -Soft, non-tender. Bowel Sounds normal. Extremities - no edema, no calf tenderness. Discharge Medications Medication Instructions Recorded Zolpidem Tartrate [Ambien] 10 mg PO HS 10/14/11 Albuterol 0.083% Nebulizer Swapna 1 neb NEB QID 04/20/15 [Ventolin 0.083% Nebulizer Soln -] Atorvastatin Ca [Lipitor] 40 mg PO HS 04/20/15 Clonazepam 2 mg PO TID 04/20/15 Levothyroxine [Synthroid -] 50 mcg PO ACBK 01/03/18 Risperidone [Risperdal -] 2 mg PO DAILY 01/03/18 Guaifenesin 100 mg PO QID PRN #1 bottle 02/27/18 Albuterol Sulfate Inhaler - 2 inh PO QID PRN #1 inhaler 04/15/18 [Ventolin HFA Inhaler -] Methadone [Dolophine -] 90 mg PO DAILY@0600 06/04/18 Polyethylene Glycol 3350 [Miralax 17 gm PO DAILY #1 bottle 06/04/18 255 gm Btl -] Budesonide/Formeterol Fumarate 2 puff IH BID 11/08/18 [SYMBICORT 160/4.5mcg -] Diphenhydramine [Benadryl Capsule 50 mg PO DAILY 11/08/18 -] Gabapentin 300 mg PO BID 11/08/18 Sertraline HCl [Zoloft] 25 tab PO DAILY 11/08/18 hydrOXYzine PAMOATE [Vistaril -] 50 mg PO BID 11/12/18 Azithromycin 500 mg PO DAILY #1 tablet 11/13/18 Cefuroxime Axetil [Cefuroxime] 500 mg PO BID #4 tablet 11/13/18 ASSESSMENT AND PLAN: 52 year old female with history of Esophageal Cancer (diagnosed 2014) s/p CTx/ RTX, Hx IVDU (on Methadone), Asthma/COPD, Hypothyroidism, re-admitted after recent admission at [facility] for Pneumonia. 1. Acute Hypoxic Respiratory Failure secondary to Bilateral Pneumonia - treated with Ceftriaxone/Azithromycin. To complete 7 da course of Cephalosporin and 5 days Azithromycin. Clinically improved. Afebrile, Hemodynamically Stable. Underlying COPD with poor functional reserve. For discharge with Home O2 and Pulmonary follow up as out-patient for PFTs. continue Symbicort, Albuterol PRN. 2. Hx of esophageal ca s/p CTx/RTX - soft diet. For outpatient follow up 3. Hx Opiate Use/IVDU - on Methadone. Follows with [facility]. 4. Psychiatrc Disorder - unclear ?Anxiety/Depression - on Hydroxyzine, Risperidone, Clonazepam. Zoloft. 5. HLD - continue nStatin 6. Hypothyroidism - Continue Levothyroxine. Dispo - medically stable for discharge.
== END 2018-11-13 18:01 | disposition home or self-care (01) | DRG 139 ==
LOC: JER 02:48 → JERBED 06:21 → J8W 23:09
PROVIDERS: ADMIT Internal Medicine
DX: J12.9 Viral pneumonia, unspecified (principal); F11.10 Opioid abuse, uncomplicated; J96.01 Acute respiratory failure with hypoxia; I95.9 Hypotension, unspecified; J44.0 Chronic obstructive pulmonary disease with (acute) lower respiratory infection; R74.0 Nonspecific elevation of levels of transaminase and lactic acid dehydrogenase [LDH]; E03.9 Hypothyroidism, unspecified; R82.71 Bacteriuria; J44.1 Chronic obstructive pulmonary disease with (acute) exacerbation; N39.0 Urinary tract infection, site not specified; R76.0 Raised antibody titer; D72.829 Elevated white blood cell count, unspecified; E78.5 Hyperlipidemia, unspecified
CPT/HCPCS: 36415; 71045-TC-FY; 71250-TC; 76705-TC; 80048; 80053; 81003; 82977; 83605; 83615; 83735; 83880; 84100; 84484; 85025; 85027; 85610; 85651; 86140; 87040; 87070; 87077; 87086; 87205; 87389; 87633; 87899; 90732; 93005; 93010; 93306-TC; 94640; 94761; 97116-GP; 97161-GP; 99285-25; G0009; J0131; J2794; J7030

== ENCOUNTER 2019-02-25 09:55 | Inpatient (IN) | payer OTHER ==
[2019-02-25] MEDS ORDERED: SODIUM CHLORIDE 0.9% 1000 ML INFUS.BAG IV ONE ×2 (10:32→15:07)
[2019-02-25] MEDS ORDERED: ACETAMINOPHEN 1000 MG/100 ML VIAL (NON FORMULARY) IVPB ONE (10:32)
[2019-02-25] MEDS ORDERED: ALBUTEROL SO4 2.5/IPRATROPIUM 0.5 INH SOL 3 ML VIAL.NEB. NEB ONE ×2 (10:45→11:14)
--- NOTE | 2019-02-25 10:58 | PDOC ---
History of Present Illness - General Chief Complaint: Weakness Stated Complaint: CHILLS,WEAKNESS Time Seen by Provider: 02/25/19 10:32 History Source: Patient Exam Limitations: No Limitations - History of Present Illness Initial Comments: 02/25/19 10:52 53F with a PMH of esophageal CA diagnosed in 2014 s/p chemo/rad (completed in 2016), ex- IVDU on methadone (90), hypothyroidism, asthma (uses albuterol inhaler 1x/week, on 2L home O2) who presents to the ER with multiple complaints. The patient states that for the past 2 months, she's had intermittent headaches (sharp, unilateral, associated with loss of vision in her R field, worse in the mornings and associated with night sweats). The headaches are also associated with lightheadedness as well as vertiginous dizziness which caused the patient to slip out of her bed today, hitting her head but she denies any other trauma. She states that she's presenting today because she's not sure why this keeps happening. She denies CP, nausea, vomiting , numbness, tingling, or weakness. She admits to SOB but does not use her home O2 or take her home meds. Past History - Past Medical History Allergies/Adverse Reactions: Allergies Allergy/AdvReac Type Severity Reaction Status Date / Time Penicillins Allergy Verified 02/25/19 10:04 Home Medications: Ambulatory Orders Zolpidem Tartrate [Ambien] 10 mg PO HS 10/14/11 Albuterol 0.083% Nebulizer Swapna [Ventolin 0.083% Nebulizer Soln -] 1 neb NEB QID 04/20/15 Atorvastatin Ca [Lipitor] 40 mg PO HS 04/20/15 Clonazepam 2 mg PO TID 04/20/15 Levothyroxine [Synthroid -] 50 mcg PO ACBK 01/03/18 Risperidone [Risperdal -] 2 mg PO DAILY 01/03/18 Guaifenesin 100 mg PO QID PRN #1 bottle 02/27/18 Albuterol Sulfate Inhaler - [Ventolin HFA Inhaler -] 2 inh PO QID PRN #1 inhaler 04/15/18 Methadone [Dolophine -] 90 mg PO DAILY@0600 06/04/18 Polyethylene Glycol 3350 [Miralax 255 gm Btl -] 17 gm PO DAILY #1 bottle Budesonide/Formeterol Fumarate [SYMBICORT 160/4.5mcg -] 2 puff IH BID 11/08/18 Diphenhydramine [Benadryl Capsule -] 50 mg PO DAILY 11/08/18 Gabapentin 300 mg PO BID 11/08/18 Sertraline HCl [Zoloft] 25 tab PO DAILY 11/08/18 hydrOXYzine PAMOATE [Vistaril -] 50 mg PO BID 11/12/18 Azithromycin 500 mg PO DAILY #1 tablet 11/13/18 Cefuroxime Axetil [Cefuroxime] 500 mg PO BID #4 tablet 11/13/18 Anemia: Yes Asthma: Yes Cancer: Yes (esophageal ca in remission) Cardiac Disorders: No CVA: No COPD: Yes CHF: No Diabetes: No Disorders: No (frequency of urinating) HTN: No Hypercholesterolemia: No Liver Disease: No Seizures: No Thyroid Disease: No - Surgical History Abdominal Surgery: Yes (GASTROSTOMY, REMOVED) Cholecystectomy: Yes (open candice) - Reproductive History (#): 7 Para: 6 Spontaneous : 1 - Immunization History Immunization Up to Date: Yes - Psycho Social/Smoking Cessation Hx Smoking Status: No Smoking History: Current every day smoker Have you smoked in the past 12 months: No Number of Cigarettes Smoked Daily: 1 Information on smoking cessation initiated: Yes 'Breaking Loose' booklet given: 04/21/15 Hx Alcohol Use: No Drug/Substance Use Hx: Yes (dope) Substance Use Type: Cocaine Hx Substance Use Treatment: Yes (methadone maintenance) Review of Systems - Review of Systems Able to Perform ROS?: Yes Comments:: 02/25/19 11:05 GENERAL/CONSTITUTIONAL: + for weakness. No fever or chills. HEAD, EYES, EARS, NOSE AND THROAT: No change in vision. No ear pain or discharge. No sore throat. CARDIOVASCULAR: + for lightheadedness. No chest pain or palpitations. RESPIRATORY: + for cough, shortness of breath. No hemoptysis. GASTROINTESTINAL: No abdominal pain, nausea, vomiting, diarrhea, or constipation. GENITOURINARY: No dysuria, frequency, hematuria, or change in urination. MUSCULOSKELETAL: No joint or muscle swelling or pain. No neck or back pain. SKIN: No rash or lesions. NEUROLOGIC: No headache, numbness, tingling, focal weakness, loss of consciousness, or change in strength/sensation. Is the patient limited Ukrainian proficient: No *Physical Exam - Vital Signs Last Vital Signs Temp Pulse Resp BP Pulse Ox 101.1 F H 104 H 20 102/59 L 98 02/25/19 09:57 02/25/19 09:57 02/25/19 09:57 02/25/19 09:57 02/25/19 09:57 - Physical Exam 02/25/19 11:09 GENERAL: Well developed, well nourished. Awake and alert. No acute distress. HEENT: Normocephalic, atraumatic. Hearing grossly normal. Moist mucous membranes. PERRLA, EOMI. No conjunctival pallor. Sclera are non-icteric. NECK: Supple. Full ROM. No JVD. CARDIOVASCULAR: Regular rate and rhythm. No murmurs, rubs, or gallops. PULMONARY: No evidence of respiratory distress. Diffuse rhonchi and crackles w/ expiratory wheezing throughout all lung fortune. ABDOMINAL: Soft. Non-tender. Non-distended. No rebound or guarding. GENITOURINARY: No CVA tenderness bilaterally. MUSCULOSKELETAL: Normal range of motion at all joints. No bony deformities or tenderness. EXTREMITIES: No cyanosis. No clubbing. No edema. No calf tenderness or swelling. SKIN: Warm and dry. Normal capillary refill. No rashes. No jaundice. NEUROLOGICAL: Alert, awake, appropriate. Cranial nerves 2-12 intact. No deficits to light touch and temperature in face, upper extremities and lower extremities. 5/5 strength in deltoids, biceps, triceps, quadriceps, hamstrings, and gastrocnemius. Normal speech. PSYCHIATRIC: Cooperative. Good eye contact. Appropriate mood and affect. Heart Score/ECG Review #1 ECG reviewed & interpreted by me at: 11:32 General ECG Interpretation: Sinus Rhythm, Normal Rate, Normal Intervals, No acute ischemic changes Compared to previous ECG there are: No significant change 02/25/19 11:32 NSR vent rate 75 WA 150 QRS 74 QTc 436 No STD or QUITA No signs of acute ischemia ED Treatment Course - LABORATORY CBC & Chemistry Diagram: 02/25/19 11:59 02/25/19 11:59 - RADIOLOGY Radiology Studies Ordered: Category Date Time Status CERVICAL SPINE CT W/O CONTR [CT] Stat CT Scan 02/25/19 10:[address] WITHOUT CONTRAST [CT] Stat CT Scan 02/25/19 10:38 Ordered CHEST X-RAY PORTABLE* [RAD] Stat Radiology 02/25/19 10:32 Ordered Medical Decision Making - Medical Decision Making 02/25/19 11:09 53F with a PMH of MMP who presents to the ER with complaints of weakness, dizziness, and headaches x 2 months. Incoming vitals notable for fever, tachycardia, and borderline hypotension. Sepsis order set initiated. Pending labs and imaging. Giving IV tylenol and obtaining flu swab. 02/25/19 15:07 CBC shows slightly elevated WBC. Trop negative. CXR shows LLL PNA. Treating w/ ceftriaxone and azithro (PCN allergy is a rash). CTH negative. Will admit for sepsis 2/2 PNA. Microblogged for admission. 02/25/19 15:16 Pt endorsed to SARATH Romero for admission. Discharge - Discharge Information Problems reviewed: Yes Clinical Impression/Diagnosis: Pneumonia Qualifiers: Pneumonia type: due to unspecified organism Laterality: left Lung location: lower lobe of lung Qualified Code(s): J18.9 - Pneumonia, unspecified organism Condition: Guarded - Admission Yes - Follow up/Referral Referrals: Dannielle Blackmon MD [Primary Care Provider] - - Patient Discharge Instructions - Post Discharge Activity
[2019-02-25] MEDS ORDERED: ACETAMINOPHEN INJECTION 100 ML IVPB ONE (11:15)
--- NOTE | 2019-02-25 11:24 | PDOC ---
Attending Attestation - Resident Resident Name: Louis Bedolla - ED Attending Attestation I have performed the following: I have examined & evaluated the patient, The case was reviewed & discussed with the resident, I agree w/resident's findings & plan - HPI HPI: 02/25/19 11:19 53-year-old female with history of asthma/COPD on home oxygen with questionable compliance, history of IVDA in the past, history of esophageal CA status post treatment since 2017, admission earlier this year for bilateral pneumonia with acute hypoxic respiratory failure presents now with progressive generalized weakness over the last couple of days with fever/chills. Patient is poor historian, has difficulty localizing any infectious complaints, but did mention her chronic dry cough is now productive of green sputum. denies chest pain. brought in today by with episode of light-headedness . - Physicial Exam PE: 02/25/19 11:20 Febrile, tachycardic, slightly tachypneic at triage At bedside, patient is alert and conversant and more well-appearing than her vital signs would suggest op clear, neck supple coarse BS b/l with expiratory wheeze throughout heart regular tachy abd benign with healed RUQ incisional scar no edema neuro intact - Medical Decision Making 02/25/19 11:23 53-year-old female with history of asthma/COPD presents with sirs/sepsis, increasingly productive cough with abnormal lung findings suggestive of pneumonia as etiology. Otherwise relatively well appearing. Sepsis protocol initiated Antipyretics, IV fluids EKG, chest x-ray Nebulizers Antibiotics as dictated by work-up Admission Heart Score/ECG Review #1 ECG reviewed & interpreted by me at: 11:26 General ECG Interpretation: Sinus Rhythm, Normal Rate (77), Normal Intervals ( qtc 436), No acute ischemic changes (nonspecific T wave flattening V4V5) Compared to previous ECG there are: No significant change (c/w 11/08/18, no acute ST changes though waves upright on prior.)
[2019-02-25 12:24] LABS: BASO % 0.5 % (0-2.0); EOS % 0.3 % (0-4.5); HEMATOCRIT 35.2 % (32.4-45.2); HEMOGLOBIN 11.2 GM/dL (10.7-15.3); LYMPH % 12.8 % (8-40); MCH 28.6 pg (25.7-33.7); MCHC 31.7 g/dl (32.0-36.0); MEAN CELL VOLUME 90.2 fl (80-96); MEAN PLT VOLUME 8.3 fl (7.5-11.1); MONO % 3.9 % (3.8-10.2); NEUT % 82.5 % (42.8-82.8); PLATELET COUNT 237 K/MM3 (134-434); RDW 13.7 % (11.6-15.6); WHITE BLOOD COUNT 13.9 K/mm3 (4.0-10.0)
[2019-02-25 12:28] LABS: VENOUS PC02 61.6 mmHg (38-52); VENOUS PH 7.35 (7.31-7.41)
[2019-02-25 12:36] LABS: VENOUS PO2 < 49 mmHg (28-48)
[2019-02-25 12:39] LABS: INR 1.06 (0.83-1.09); PROTHROMBIN TIME (PATIENT) 12.5 SEC (9.7-13.0)
[2019-02-25 12:41] LABS: ACTIVATED PTT 31.3 SECONDS (25.2-36.5)
--- NOTE | 2019-02-25 12:43 | EKG ---
Test Reason : Blood Pressure : / mmHG Vent. Rate : 077 BPM Atrial Rate : 077 BPM P-R Int : 150 ms QRS Dur : 074 ms QT Int : 386 ms P-R-T Axes : 043 -10 039 degrees QTc Int : 436 ms NORMAL SINUS RHYTHM NORMAL ECG WHEN COMPARED WITH ECG OF 08-NOV-2018 07:30, NONSPECIFIC T WAVE ABNORMALITY NOW EVIDENT IN ANTERIOR LEADS Confirmed by MD Gavin, William ([id number]) on 02/25/2019 12:43:14 PM Referred By: Confirmed By:William Alonso MD
[2019-02-25 12:50] LABS: BILIRUBIN,TOTAL 0.3 mg/dL (0.2-1); BLOOD UREA NITROGEN 13.7 mg/dL (7-18); CALCIUM 8.7 mg/dL (8.5-10.1); POTASSIUM 4.4 mmol/L (3.5-5.1); TOT PROT 6.7 g/dl (6.4-8.2)
[2019-02-25] MEDS ORDERED: CEFTRIAXONE 1,000 MG in DEXTROSE 5%-WATER - 50 ML IVPB ONE (14:21)
[2019-02-25] MEDS ORDERED: AZITHROMYCIN IVPB 500 MG in DEXTROSE 5%-WATER - 250 ML IVPB ONE (14:21)
[2019-02-25] MEDS ORDERED: AZITHROMYCIN IVPB 500 MG/250 ML BAG IVPB ONE (14:35)
[2019-02-25] MEDS ORDERED: CEFTRIAXONE 1 GM/50 ML BAG ONE ×2 (14:35→14:41)
[2019-02-25 14:49] LABS: ARTERIAL BLD GAS O2 SATURATION 98.8 % (95-98); ARTERIAL BLOOD GAS BASE EXCESS 3.6 meq/l (-2-2); ARTERIAL BLOOD GAS PCO2 52.8 mmHg (35-45); ARTERIAL BLOOD GAS PO2 123 mmHg (80-100); ARTERIAL BLOOD GAS pH 7.36 (7.35-7.45); CARBOXYHEMOGLOBIN 3.5 % (0-2)
[2019-02-25 14:58] LABS: ALLENS TEST POSITIVE
--- NOTE | 2019-02-25 16:50 | HP ---
CHIEF COMPLAINT: dizziness, headaches, weakness, fall at home, wet cough, congestion PCP: Robby Pantoja MD HISTORY OF PRESENT ILLNESS: Patient is a 53 year old female with a significant past medical history of laryngeal cancer (s/p RT and chemo - last chemo 4 years ago) ex-IVDU on methadone (90mg), hypothyroidism, asthma (on 2L home O2). Patient presents to the ED today with c/o dizziness, intermittent headaches for apx 2 months (sharp , unilateral, associated with loss of vision in her right field). The headaches are also associated with lightheadedness as well as vertiginous dizziness which caused the patient to slip out of her bed today. She reports hitting her head but denies any further trauma. She also reports worsening wet cough and congestion despite her home inhalers. she denies any chest pain, nausea/ vomiting or numbness. She is home oxygen dependent at 2 liters but often does not use her oxygen. She reports that she has been having trouble with swallowing at times since chemo and RT but is able to tolerate a pureed diet. ER course was notable for: (1) head ct negative (2) chest xray: left lower lobe infiltrate (3) ekg nsr: non specific t wave abnormality Recent Travel: denies PAST MEDICAL HISTORY: esophageal cancer (s/p RT and chemo - last chemo 4 years ago) ex-IVDU on methadone (90mg), hypothyroidism, asthma (on 2L home O2) PAST SURGICAL HISTORY: Social History: Smokin cigarette per day Alcohol: denies Drugs: on methadone. hx of ivdu Allergies Penicillins Allergy (Verified 02/25/19 10:04) HOME MEDICATIONS: Home Medications Medication Instructions Recorded Zolpidem Tartrate [Ambien] 10 mg PO HS 10/14/11 Albuterol 0.083% Nebulizer Swapna 1 neb NEB QID 04/20/15 [Ventolin 0.083% Nebulizer Soln -] Atorvastatin Ca [Lipitor] 40 mg PO HS 04/20/15 Clonazepam 2 mg PO TID 04/20/15 Levothyroxine [Synthroid -] 50 mcg PO ACBK 01/03/18 Risperidone [Risperdal -] 2 mg PO DAILY 01/03/18 Guaifenesin 100 mg PO QID PRN #1 bottle 02/27/18 Albuterol Sulfate Inhaler - 2 inh PO QID PRN #1 inhaler 04/15/18 [Ventolin HFA Inhaler -] Methadone [Dolophine -] 90 mg PO DAILY@0600 06/04/18 Polyethylene Glycol 3350 [Miralax 17 gm PO DAILY #1 bottle 06/04/18 255 gm Btl -] Budesonide/Formeterol Fumarate 2 puff IH BID 11/08/18 [SYMBICORT 160/4.5mcg -] Diphenhydramine [Benadryl Capsule 50 mg PO DAILY 11/08/18 -] Gabapentin 300 mg PO BID 11/08/18 Sertraline HCl [Zoloft] 25 tab PO DAILY 11/08/18 hydrOXYzine PAMOATE [Vistaril -] 50 mg PO BID 11/12/18 Azithromycin 500 mg PO DAILY #1 tablet 11/13/18 Cefuroxime Axetil [Cefuroxime] 500 mg PO BID #4 tablet 11/13/18 PHYSICAL EXAMINATION Vital Signs - 24 hr 02/25/19 02/25/19 09:57 12:17 Temperature 101.1 F H 100.6 F H Pulse Rate 104 H Respiratory 20 Rate Blood Pressure 102/59 L O2 Sat by Pulse 98 Oximetry (%) GENERAL: Awake, alert, and fully oriented, in no acute distress. HEAD: Normal with no signs of trauma. EYES: Pupils equal, round and reactive to light, extraocular movements intact, sclera anicteric, conjunctiva clear. No lid lag. EARS, NOSE, THROAT: Ears normal, nares patent, oropharynx clear without exudates. Moist mucous membranes. NECK: Normal range of motion, supple without lymphadenopathy, JVD, or masses. LUNGS: wheezing, tolerating room air, HEART: Regular rate and rhythm, normal S1 and S2 without murmur, rub or gallop. ABDOMEN: Soft, nontender, not distended, normoactive bowel sounds, no guarding, no rebound, no masses. No hepatomegaly or splenomegaly. MUSCULOSKELETAL: Normal range of motion at all joints. No bony deformities or tenderness. No CVA tenderness. UPPER EXTREMITIES: 2+ pulses, warm, well-perfused. No cyanosis. No clubbing. No peripheral edema. LOWER EXTREMITIES: 2+ pulses, warm, well-perfused. No calf tenderness. No peripheral edema. NEUROLOGICAL: Cranial nerves II-XII intact. Normal speech. Normal gait. PSYCHIATRIC: Cooperative. Good eye contact. Appropriate mood and affect. SKIN: Warm, dry, normal turgor, no rashes or lesions noted, normal capillary refill. Laboratory Results - last 24 hr 02/25/19 02/25/19 02/25/19 11:59 11:59 11:59 WBC RBC Hgb Hct MCV MCH MCHC RDW Plt Count MPV Absolute Neuts (auto) Neutrophils % Lymphocytes % Monocytes % Eosinophils % Basophils % Nucleated RBC % PT with INR 12.50 INR 1.06 PTT (Actin FS) 31.3 Anticoagulation Therapy Puncture Site ABG pH ABG pCO2 at Pt Temp ABG pO2 at Pt Temp ABG HCO3 ABG O2 Sat (Measured) ABG O2 Content ABG Base Excess Jose Test VBG pH POC VBG pCO2 POC VBG pO2 VBG HCO3 VBG O2 Sat (Sarahy) VBG Base Excess Carboxyhemoglobin Methemoglobin O2 Delivery Device Oxygen Flow Rate Vent Mode Vent Rate Mechanical Rate Pressure Support Vent Sodium Potassium Chloride Carbon Dioxide Anion Gap BUN Creatinine Est GFR (CKD-EPI)AfAm Est GFR (CKD-EPI)NonAf Random Glucose Lactic Acid Calcium Total Bilirubin AST ALT Alkaline Phosphatase Troponin I < 0.02 Total Protein Albumin Influenza A (Rapid) Negative Influenza B (Rapid) Negative 02/25/19 02/25/19 02/25/19 11:59 11:59 11:59 WBC 13.9 H RBC 3.90 Hgb 11.2 Hct 35.2 MCV 90.2 MCH 28.6 MCHC 31.7 L RDW 13.7 D Plt Count 237 D MPV 8.3 Absolute Neuts (auto) 11.5 H Neutrophils % 82.5 Lymphocytes % 12.8 Monocytes % 3.9 Eosinophils % 0.3 D Basophils % 0.5 Nucleated RBC % 0 PT with INR INR PTT (Actin FS) Anticoagulation Therapy Puncture Site ABG pH ABG pCO2 at Pt Temp ABG pO2 at Pt Temp ABG HCO3 ABG O2 Sat (Measured) ABG O2 Content ABG Base Excess Jose Test VBG pH POC VBG pCO2 POC VBG pO2 VBG HCO3 VBG O2 Sat (Sarahy) VBG Base Excess Carboxyhemoglobin Methemoglobin O2 Delivery Device Oxygen Flow Rate Vent Mode Vent Rate Mechanical Rate Pressure Support Vent Sodium 137 Potassium 4.4 Chloride 99 Carbon Dioxide 33 H Anion Gap 4 L BUN 13.7 Creatinine 1.0 Est GFR (CKD-EPI)AfAm 75.01 Est GFR (CKD-EPI)NonAf 64.72 Random Glucose 106 Lactic Acid 1.1 Calcium 8.7 Total Bilirubin 0.3 AST 29 ALT 25 Alkaline Phosphatase 104 Troponin I Total Protein 6.7 Albumin 3.0 L Influenza A (Rapid) Influenza B (Rapid) 02/25/19 02/25/19 11:59 14:38 WBC RBC Hgb Hct MCV MCH MCHC RDW Plt Count MPV Absolute Neuts (auto) Neutrophils % Lymphocytes % Monocytes % Eosinophils % Basophils % Nucleated RBC % PT with INR INR PTT (Actin FS) Anticoagulation Therapy No Result Required. Puncture Site Right radial ABG pH 7.36 ABG pCO2 at Pt Temp 52.8 H ABG pO2 at Pt Temp 123 H ABG HCO3 29.3 H ABG O2 Sat (Measured) 98.8 H ABG O2 Content 14.3 ABG Base Excess 3.6 H Jose Test Positive VBG pH 7.35 POC VBG pCO2 61.6 H POC VBG pO2 < 49 H VBG HCO3 32.8 H VBG O2 Sat (Sarahy) 56.2 L VBG Base Excess 6.1 H Carboxyhemoglobin 3.5 H Methemoglobin < 1.0 O2 Delivery Device No Result Required. Oxygen Flow Rate No Vent Mode No Result Required. Vent Rate No Result Required. Mechanical Rate No Result Required. Pressure Support Vent No Result Required. Sodium Potassium Chloride Carbon Dioxide Anion Gap BUN Creatinine Est GFR (CKD-EPI)AfAm Est GFR (CKD-EPI)NonAf Random Glucose Lactic Acid Calcium Total Bilirubin AST ALT Alkaline Phosphatase Troponin I Total Protein Albumin Influenza A (Rapid) Influenza B (Rapid) ASSESSMENT/PLAN: Problem List - Problem (1) Pneumonia Assessment/Plan: chest xray with segmental left lower lobe pneumonia rule out for aspiration pneumonia, as pt with hx of difficulty swallowing s/p chemo/rt for laryngeal cancer start on emperic antibiotics monitor vitals, labs, airway aspiration precautions for chest ct to further evaluate for swallow eval Code(s): J18.9 - PNEUMONIA, UNSPECIFIED ORGANISM Qualifiers: Pneumonia type: due to unspecified organism Laterality: left Lung location: lower lobe of lung Qualified Code(s): J18.9 - Pneumonia, unspecified organism (2) Headache Assessment/Plan: tylenol prn head ct negative Code(s): R51 - HEADACHE (3) Migraine Assessment/Plan: monitor for worsening headaches Code(s): G43.909 - MIGRAINE, UNSP, NOT INTRACTABLE, WITHOUT STATUS MIGRAINOSUS (4) COPD (chronic obstructive pulmonary disease) Assessment/Plan: continue home inhalers chest ct pulmonary consult Code(s): J44.9 - CHRONIC OBSTRUCTIVE PULMONARY DISEASE, UNSPECIFIED (5) Hypothyroidism Assessment/Plan: continue synthroid Code(s): E03.9 - HYPOTHYROIDISM, UNSPECIFIED (6) Methadone maintenance therapy patient Assessment/Plan: on methadone 90 daily Code(s): F11.20 - OPIOID DEPENDENCE, UNCOMPLICATED (7) History of esophageal cancer Assessment/Plan: s/p chemo and rt 4 years ago. outpatient follow up Code(s): Z85.01 - PERSONAL HISTORY OF MALIGNANT NEOPLASM OF ESOPHAGUS (8) Vertigo Assessment/Plan: monitor on tele physical therapy Code(s): R42 - DIZZINESS AND GIDDINESS Visit type - Emergency Visit Emergency Visit: Yes ED Registration Date: 02/25/19 Care time: The patient presented to the Emergency Department on the above date and was hospitalized for further evaluation of their emergent condition. - New Patient This patient is new to me today: Yes Date on this admission: 02/26/19 - Critical Care Critical Care patient: No
[2019-02-25] MEDS ORDERED: ACETAMINOPHEN 325 MG TABLET (FP) PO PRN (17:38)
[2019-02-25] MEDS: SODIUM CHLORIDE 1,000 ML IV SCH (19:30)
[2019-02-25] MEDS: HEPARIN NA (PORCINE) 5,000 UNITS/ML 1ML VIAL SQ SCH (21:42)
[2019-02-25] MEDS: clonazePAM 2 MG TABLET PO SCH (21:42)
[2019-02-25] MEDS: GABAPENTIN 300 MG CAPSULE PO SCH (21:42)
[2019-02-25] MEDS: ATORVASTATIN CA 40 MG TABLET (FP) PO SCH (21:42)
[2019-02-25] MEDS: ZOLPIDEM TARTRATE 5 MG TABLET PO PRN (22:04)
[2019-02-25] MEDS: BUDESONIDE/FORMETEROL FUMARATE 160/4.5 mcg INHALER IH SCH (23:15)
[2019-02-26] MEDS: LEVOTHYROXINE NA 50 MCG TABLET (FP) PO SCH (07:00)
[2019-02-26] MEDS: clonazePAM 2 MG TABLET PO SCH ×3 (07:00→22:23)
[2019-02-26] MEDS ORDERED: METHADONE HCL 10 MG TABLET PO SCH (07:30)
[2019-02-26] MEDS ORDERED: METHADONE HCL 40 MG DISPERSABLE TABLET ONE (09:47)
[2019-02-26] MEDS ORDERED: METHADONE HCL 10 MG TABLET ONE (09:47)
[2019-02-26] MEDS ORDERED: PT OWN MED DRAWER 7, Y5N ONE (09:48)
[2019-02-26] MEDS ORDERED: DEXTROSE 5%-WATER - 50 ML IVPB ONE (09:49)
[2019-02-26] MEDS ORDERED: cefTRIAXone SODIUM 1 GM VIAL ONE (09:49)
[2019-02-26] MEDS: BUDESONIDE/FORMETEROL FUMARATE 160/4.5 mcg INHALER IH SCH ×2 (09:55→22:26)
[2019-02-26] MEDS: METHADONE 80 MG, METHADONE 10 MG PO SCH (09:56)
[2019-02-26] MEDS: GABAPENTIN 300 MG CAPSULE PO SCH ×2 (09:58→22:23)
[2019-02-26] MEDS: SERTRALINE HCL 25 MG TABLET (FP) PO SCH (09:58)
[2019-02-26] MEDS ORDERED: risperiDONE 2 MG TABLET PO SCH (10:00)
[2019-02-26] MEDS ORDERED: SERTRALINE HCL 25 MG TABLET (FP) PO SCH (10:00)
[2019-02-26] MEDS: AZITHROMYCIN IVPB 500 MG/250 ML BAG IVPB SCH (10:02)
[2019-02-26] MEDS: HEPARIN NA (PORCINE) 5,000 UNITS/ML 1ML VIAL SQ SCH ×2 (10:02→22:22)
[2019-02-26] MEDS: CEFTRIAXONE 1 GM in DEXTROSE 5%-WATER - 50 ML IVPB SCH (10:02)
--- NOTE | 2019-02-26 10:27 | EKG ---
Test Reason : Blood Pressure : / mmHG Vent. Rate : 076 BPM Atrial Rate : 076 BPM P-R Int : 154 ms QRS Dur : 076 ms QT Int : 408 ms P-R-T Axes : 044 -07 035 degrees QTc Int : 459 ms NORMAL SINUS RHYTHM NORMAL ECG WHEN COMPARED WITH ECG OF 25-FEB-2019 11:26, NO SIGNIFICANT CHANGE WAS FOUND Confirmed by ADAN PINEDA MD ([id number]) on 02/26/2019 10:27:37 AM Referred By: Confirmed By:ADAN PINEDA MD
--- NOTE | 2019-02-26 10:51 | CONSULT ---
Admitting History and Physical - Primary Care Physician PCP: Davin López - Admission History of Present Illness: Per EMR- Patient is a 53 year old female admitted with c/o dizziness, intermittent headaches , lightheadedness ,vertiginous dizziness. She also reports worsening wet cough and congestion despite her home inhalers. She is home oxygen dependent at 2 liters but often does not use her oxygen. She reports that she has been having trouble with swallowing at times since chemo and RT but is able to tolerate a pureed diet. 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 Conrad, ENT. She denies esophageal cancer. She had gallbladder sx and a feeding tube 4 years ago when she couldn't swallow and was going through chemo/RT. Pt reports choking while eating at home. Pt eats reg foods at home, eg cookies, rice/beans, "rarely" blenderizes food. I placed a call to Dr. Conrad's office. Pt with h/o LARYNGEAL CANCER. Report faxed and placed in paper chart. She is not always a consistent historian, telling me she eats puree and then that she eats solids but rarely puree. She reports using O2 at home but other reports say she rarely uses it. History Source: Patient Limitations to Obtaining History: No Limitations - Past Medical History Cardiovascular: Yes: HTN, Hyperlipdemia Pulmonary: Yes: Asthma ...LMP: 12/26/11 Heme/Onc: Yes: Anemia, Cancer (throat) Psych: Yes: Addictions, Anxiety - Smoking History Smoking history: Current every day smoker Have you smoked in the past 12 months: No Aproximately how many cigarettes per day: 1 - Alcohol/Substance Use Hx Alcohol Use: No History of Substance Use: reports: Cocaine - Social History ADL: Independent History of Recent Travel: No History - Admission Reason For Visit: CHILLS COPD PNEUMONIA - Diagnostics CT Scan: Report Reviewed (11/08/[address] bilat PNA) Other: Report Reviewed (soft tissue neck 2011- abnormal findings supra laryngeal region.) - General Mental Status: Alert and Oriented, Awake and Alert, Able to Follow Commands Attention: Intact Ability to Follow Directions: Excellent Head/Neck Control: WFL - Hearing Hearing: Normal Speech Evaluation - Communication Primary Language: INDONESIAN Communication: Yes: Within Normal Limits - Speech Production Able to Make Needs Known: Yes: WNL Intelligibility: Yes: WNL - Speech Characteristics Voice Loudness: Mildly Soft/Quiet Voice Pitch: Yes: Normal Voice Phonatory-based Quality: Yes: Dysphonia (intermittent. 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: WNL Short Term Memory: Yes: WNL - Swallow Evaluation/Bedside Assessment Current Nutritional Intake: Dysphagia Pureed, [place] Textured Liquids Oral Secretions: Yes: WFL Dentition: Yes: Edentulous Facial Symmetry at Rest: Facial Droop Left (slight?) Facial Symmetry on Retraction: Symmetrical Facial Movement: Controlled Against Resistance Opening: Normal Against Resistance Closing: Normal Pucker Lips: Normal Smile: Normal Lingual Movement: Normal, Symmetric Lingual Speed of Movement: Normal Lingual Movement Strgth Against Opposition: Normal Lingual Movement Characteristics: Normal Velopharyngeal Movement: Normal Laryngeal Elevation: Impaired Laryngeal Movement: Reduced Excursion Rate of Intake: WFL Oral Prep Time: WFL A-P Transit: WFL Pocketing: None Timing of Swallow: Delayed Coughing/Throat Clear: No (reports choking while eating at home. h/o bilateral PNA in ) Change in Voice: No Recommendations - Speech Evaluation, Impression/Plan Impression: Pt with laryngeal cancer/RT/Chemo [address] Conrad. Report faxed/placed in paper chart. Pt reports choking while eating. On o2 at home. Worsening congestion facilitated admission. Suspect aspiration. Weight 2018 164 lbs, now 152 - Dysphagia Impressions/Plan Swallowing Skills: Impaired Dysphagia Impressions: Ongoing Evaluation *Silent aspiration: cannot be R/O at bedside Recommendations: MBS w Esophagus - Recommendations Diet Consistency: Dysphagia Pureed Medication Administration: Crushed with applesauce Liquids: [place] Thick
--- NOTE | 2019-02-26 11:20 | PN ---
Progress Note (short form) - Note Progress Note: PULMONARY CONSULTATION DICTATED 02/26/19 IMP ACUTE ON CHRONIC HYPOXIC/HYPERCAPNEIC RESPIRATORY FAILURE PNEUMONIA ? ASPIRATION COPD O2 DEPENDENT WITH ACUTE EXACERBATION H/O LARYNGEAL CA S/P RT/CHEMO H/O SUBSTANCE ABUSE H/O PNEUMONIA H/O TOBACCO ABUSE ELEVATED CARBOXYHEMOGLOBIN LEVEL PLAN ABX O2 INHALED BRONCHODILATORS CHEST CT SWALLOWING EVALUATION CULTURES F/U ABG DR ALEMAN Problem List - Problems (1) Pneumonia Code(s): J18.9 - PNEUMONIA, UNSPECIFIED ORGANISM Qualifiers: Pneumonia type: due to unspecified organism Laterality: left Lung location: lower lobe of lung Qualified Code(s): J18.9 - Pneumonia, unspecified organism (2) Asthma Code(s): J45.909 - UNSPECIFIED ASTHMA, UNCOMPLICATED (3) Chills Code(s): R68.83 - CHILLS (WITHOUT FEVER) (4) Headache Code(s): R51 - HEADACHE (5) COPD (chronic obstructive pulmonary disease) Code(s): J44.9 - CHRONIC OBSTRUCTIVE PULMONARY DISEASE, UNSPECIFIED (6) History of throat cancer Code(s): Z85.819 - PRSNL HX OF MALIG NEOPLM OF UNSP SITE LIP,ORAL CAV,& PHARYNX (7) Hyperlipidemia Code(s): E78.5 - HYPERLIPIDEMIA, UNSPECIFIED Qualifiers: Hyperlipidemia type: unspecified Qualified Code(s): E78.5 - Hyperlipidemia , unspecified (8) Hypothyroidism Code(s): E03.9 - HYPOTHYROIDISM, UNSPECIFIED (9) Acute on chronic respiratory failure with hypoxia and hypercapnia Code(s): J96.21 - ACUTE AND CHRONIC RESPIRATORY FAILURE WITH HYPOXIA; J96.22 - ACUTE AND CHRONIC RESPIRATORY FAILURE WITH HYPERCAPNIA
--- NOTE | 2019-02-26 12:46 | ECHO ---
Name: BRANNON MCKEON Exam:Adult Echocardiogram Study Date: 02/26/2019 08:56 AM Age: 53 yrs Reason For Study: Increased Congestion Height: 65 in Weight: 160 lb BSA: 1.8 m2 MMode/2D Measurements & Calculations IVSd: 0.89 cm Ao root diam: 3.1 cm LVIDd: 3.7 cm LA dimension: 3.1 cm LVIDs: 2.7 cm ACS: 2.1 cm LVPWd: 0.99 cm EDV(Teich): 57.9 ml LVOT diam: 1.9 cm ESV(Teich): 26.8 ml RV S Tyson: 13.1 cm/sec Doppler Measurements & Calculations MV E max tyson: 77.0 cm/sec Ao V2 max: 126.7 cm/sec MV A max tyson: 89.3 cm/sec Ao max P.4 mmHg MV E/A: 0.86 MV dec time: 0.23 sec PARIS(V,D): 1.9 cm2 LV V1 max P.0 mmHg MR max tyson: 406.0 cm/sec LV V1 mean P.8 mmHg MR max P.0 mmHg LV V1 max: 85.9 cm/sec LV V1 mean: 62.4 cm/sec LV V1 VTI: 25.3 cm SV(LVOT): 69.2 ml TR max tyson: 198.7 cm/sec TR max P.3 mmHg PA V2 max: 72.6 cm/sec Med Peak E' Tyson: 11.4 cm/sec PA max P.1 mmHg Med E/e': 6.8 Lat Peak E' Tyson: 6.3 cm/sec Lat E/e': 12.2 Procedure A two-dimensional transthoracic echocardiogram with color flow and Doppler was performed. Left Ventricle The left ventricular size, thickness and function are normal. The left ventricular ejection fraction is normal. Left Ventricular Filling pattern is normal for age. The left ventricular wall motion is aviva l. Right Ventricle The right ventricle is normal in size and function. Atria Normal left and right atrial size and function. Mitral Valve There is mild mitral valve thickening. There is no mitral valve stenosis. There is trace to mild mitr al regurgitation. Tricuspid Valve There is mild tricuspid valve thickening. There is no tricuspid stenosis. There is Trace to mild tric uspid regurgitation. Right ventricular systolic pressure is normal. Aortic Valve The aortic valve is not well visualized. No hemodynamically significant valvular aortic stenosis. No aortic regurgitation is present. Pulmonic Valve The pulmonic valve is not well visualized. Great Vessels The aortic root is normal size. Pericardium/Pleura There is no pericardial effusion. Interpretation Summary The left ventricular size, thickness and function are normal The left ventricular ejection fraction is normal. The left ventricular wall motion is normal. There is trace to mild mitral regurgitation. There is Trace to mild tricuspid regurgitation. Right ventricular systolic pressure is normal. Left Ventricular Filling pattern is normal for age. MD Greg Ruvalcaba 02/26/2019 12:46 PM
--- NOTE | 2019-02-26 13:36 | CON.ID ---
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 Patient presents to the ED today with c /o dizziness, intermittent headaches for apx 2 months (sharp, unilateral, associated with loss of vision in her right field). The headaches are also associated with lightheadedness as well as vertiginous dizziness which caused the patient to slip out of her bed today. She reports hitting her head but denies any further trauma. She also reports worsening wet cough and congestion despite her home inhalers. she denies any chest pain, nausea/vomiting or numbness. She is home oxygen dependent at 2 liters but often does not use her oxygen. She reports that she has been having trouble with swallowing at times since chemo and RT but is able to tolerate a pureed diet. history obtained from the patient and from the chart as patient is a poor historian - History Source History Provided By: Patient, Medical Record Limitations to Obtaining History: Poor Historian - Past Medical History Cardio/Vascular: Yes: HTN, Hyperlipdemia Pulmonary: Yes: Asthma ...LMP: 12/26/11 Psych: Yes: Addictions, Anxiety - Alcohol/Substance Use Hx Alcohol Use: No History of Substance Use: reports: Cocaine - Smoking History Smoking history: Current every day smoker Have you smoked in the past 12 months: No Aproximately how many cigarettes per day: 1 - Social History ADL: Independent History of Recent Travel: No Home Medications - Allergies Allergies/Adverse Reactions: Allergies Allergy/AdvReac Type Severity Reaction Status Date / Time Penicillins Allergy Verified 02/25/19 10:04 - Home Medications Home Medications: Ambulatory Orders RX: Zolpidem Tartrate [Ambien] 10 mg PO HS 10/14/11 RX: Albuterol 0.083% Nebulizer Swapna [Ventolin 0.083% Nebulizer Soln -] 1 neb NEB QID 04/20/15 RX: Atorvastatin Ca [Lipitor] 40 mg PO HS 04/20/15 RX: Clonazepam 2 mg PO TID 04/20/15 RX: Levothyroxine [Synthroid -] 50 mcg PO ACBK 01/03/18 RX: Risperidone [Risperdal -] 2 mg PO DAILY 01/03/18 RX: Guaifenesin 100 mg PO QID PRN #1 bottle 02/27/18 RX: Albuterol Sulfate Inhaler - [Ventolin HFA Inhaler -] 2 inh PO QID PRN #1 inhaler 04/15/18 RX: Methadone [Dolophine -] 90 mg PO DAILY@0600 06/04/18 RX: Budesonide/Formeterol Fumarate [SYMBICORT 160/4.5mcg -] 2 puff IH BID RX: Gabapentin 300 mg PO BID 11/08/18 RX: Sertraline HCl [Zoloft] 25 tab PO DAILY 11/08/18 RX: hydrOXYzine PAMOATE [Vistaril -] 50 mg PO BID 11/12/18 Review of Systems - Review of Systems Constitutional: reports: No Symptoms Eyes: reports: No Symptoms HENT: reports: Other (headaches) Neck: reports: No Symptoms Cardiovascular: reports: No Symptoms Respiratory: reports: No Symptoms Gastrointestinal: reports: No Symptoms Genitourinary: reports: No Symptoms Musculoskeletal: reports: No Symptoms Integumentary: reports: No Symptoms Neurological: reports: No Symptoms Endocrine: reports: No Symptoms Hematology/Lymphatic: reports: No Symptoms Psychiatric: reports: No Symptoms Physical Exam Vital Signs: Vital Signs Temperature 97.6 F 02/26/19 09:00 Pulse Rate 59 L 02/26/19 09:00 Respiratory Rate 20 02/26/19 09:00 Blood Pressure 124/69 02/26/19 09:00 O2 Sat by Pulse Oximetry (%) 95 02/25/19 21:00 Constitutional: Yes: No Distress, Calm, Thin Cardiovascular: Yes: Regular Rate and Rhythm Respiratory: Yes: Regular, CTA Bilaterally Gastrointestinal: Yes: Normal Bowel Sounds, Soft Musculoskeletal: Yes: WNL Extremities: Yes: WNL Neurological: Yes: Alert, Oriented Psychiatric: Yes: Alert, Oriented Labs: CBC, BMP 02/25/19 11:59 02/25/19 11:59 Imaging - Results Chest X-ray: Report Reviewed, Image Reviewed Cat Scan: Report Reviewed, Image Reviewed Assessment/Plan Problem List - Problem (1) Pneumonia Code(s): J18.9 - PNEUMONIA, UNSPECIFIED ORGANISM Qualifiers: Pneumonia type: due to unspecified organism Laterality: left Lung location: lower lobe of lung Qualified Code(s): J18.9 - Pneumonia, unspecified organism (2) Headache Code(s): R51 - HEADACHE (3) Migraine Code(s): G43.909 - MIGRAINE, UNSP, NOT INTRACTABLE, WITHOUT STATUS MIGRAINOSUS (4) COPD (chronic obstructive pulmonary disease) Code(s): J44.9 - CHRONIC OBSTRUCTIVE PULMONARY DISEASE, UNSPECIFIED (5) Hypothyroidism Code(s): E03.9 - HYPOTHYROIDISM, UNSPECIFIED (6) Methadone maintenance therapy patient Code(s): F11.20 - OPIOID DEPENDENCE, UNCOMPLICATED (7) History of esophageal cancer Code(s): Z85.01 - PERSONAL HISTORY OF MALIGNANT NEOPLASM OF ESOPHAGUS (8) Vertigo Code(s): R42 - DIZZINESS AND GIDDINESS plan continue current mgmt ceftriaxone incentive siro rest as per the team await for all results
--- NOTE | 2019-02-26 14:00 | CONS ---
PULMONARY CONSULTATION DATE OF CONSULTATION: 02/26/2019 REFERRING PHYSICIAN: REBEKAH Dominguez HISTORY OF PRESENT ILLNESS: Patient is a 53-year-old, female with a past medical history of laryngeal CA diagnosed in 2014, status post chemotherapy and RT, history of substance abuse, apparently snorted cocaine as well as crack, hypothyroidism, asthma, COPD on home O2 of 2 L nasal cannula, history of pneumonia bilateral in October 2018, admitted to [facility] with complaint of intermittent headaches, generalized weakness. Patient states that yesterday, she felt lightheaded and fell twice. She also had some occasional cough. She denied any chest pains or palpitations. She presented to the emergency room with the above. In the ER, she was noted to be short of breath. She was also noted to be febrile to a temp of 101.1. Chest x-ray performed, which revealed possible left lower lobe infiltrate. She was admitted to the medical telemetry unit for further monitoring. She was started on broad-spectrum antibiotics, Zithromax and ceftriaxone. Patient has history of tobacco use. She quit approximately 4 years ago, when she had the diagnosis of cancer. She denies any history of recent travel. There is no history of occupational exposures to chemicals or fumes. She denies any hemoptysis. PAST MEDICAL HISTORY: Again, includes laryngeal CA status post chemotherapy with RT completed in 2016, history of substance abuse on methadone, hypothyroidism, asthma, COPD on home O2. REVIEW OF SYSTEMS: Positive shortness of breath. Positive cough. No chest pain. No palpitations. Positive weakness. Positive fever. Positive chills. No abdominal pain. No lower extremity edema. CURRENT MEDICATIONS: Include Ambien, Klonopin, normal saline, Lipitor, methadone, Synthroid, Zoloft, heparin, ceftriaxone, Zithromax, and Symbicort. PHYSICAL EXAMINATION: General: Patient is a well-developed, well-nourished female, awake, alert, in no acute distress. Vital Signs: She is currently afebrile, blood pressure is 124/69, respiratory rate is 20, O2 saturation is 95% on 2 L nasal cannula. HEENT: Exam is normocephalic, atraumatic. Neck: Supple. Heart: Regular S1 and S2. Chest: Crackles at the left base. Abdomen: Soft. Bowel sounds are positive. Extremities: No cyanosis, edema. LABORATORIES: Initial venous blood gas: 7.35, PCO2 of 61, a PO2 of 49, a bicarbonate of 32, and a saturation of 56. Repeat blood gas with unknown quantity of oxygen: 7.36, PCO2 of 52, a PO2 of 123, bicarbonate of 29, and saturation 98.8. Also, carboxyhemoglobin was 3.5. BUN 13, creatinine 1.0. WBC is 13.9, hemoglobin 11.2, hematocrit 35.5, with a platelet count of 237,000. IMPRESSION: Acute on chronic hypoxic and hypercapnic respiratory failure, secondary to: 1. Likely pneumonia, left lower lobe. Rule out possible underlying aspiration. Patient complains of cough while eating and drinking. 2. Chronic obstructive pulmonary disease. Oxygen dependent with acute exacerbation. 3. History of laryngeal CA. Status post radiation therapy/chemotherapy. 4. History of substance abuse. On methadone. 5. History of pneumonia. 6. History of tobacco abuse. PLAN: Antibiotics. Supplemental O2. Inhaled bronchodilators. CT scan of the chest. Swallowing evaluation. Pancultures. Obtain followup ABG on room air, prior to discharge, as well as followup carboxyhemoglobin level. EDGAR ALEMAN M.D. [place]/[id number]
[2019-02-26 15:16] LABS: BASO % 0.4 % (0-2.0); EOS % 2.1 % (0-4.5); HEMATOCRIT 32.3 % (32.4-45.2); HEMOGLOBIN 10.6 GM/dL (10.7-15.3); LYMPH % 25.4 % (8-40); MCH 29.4 pg (25.7-33.7); MCHC 32.9 g/dl (32.0-36.0); MEAN CELL VOLUME 89.3 fl (80-96); MEAN PLT VOLUME 8.2 fl (7.5-11.1); NEUT % 67.1 % (42.8-82.8); PLATELET COUNT 222 K/MM3 (134-434); RBC 3.62 M/mm3 (3.60-5.2); RDW 13.3 % (11.6-15.6); WHITE BLOOD COUNT 8.9 K/mm3 (4.0-10.0)
--- NOTE | 2019-02-26 15:40 | CON.CARD ---
Consult Consult Specialty:: Cardiology Referred by:: santi Weiner Reason for Consultation:: bradycardia - History of Present Illness Chief Complaint: dizziness History of Present Illness: 53 year old female with a pmhx of esophageal cancer (RT and chemo in past), ex- IVDU on methadone, hypothyroidism, and asthma (on home O2) presenting with dizziness and headaches for 2 months. +slipped out of her bed but no loc. No chest pain or sob. No pnd, orthopnea, or edema. CT head no acute m/s/b EKG: sinus rhythm at 76bpm with nonspecific T wave abnormalities CXR: LLL infiltrate Echocardiogram: normal LVEF and no significant valve disease. - Past Medical History Cardio/Vascular: Yes: HTN, Hyperlipdemia Pulmonary: Yes: Asthma ...LMP: 12/26/11 Psych: Yes: Addictions, Anxiety - Alcohol/Substance Use Hx Alcohol Use: No History of Substance Use: reports: Cocaine - Smoking History Smoking history: Current every day smoker Have you smoked in the past 12 months: No Aproximately how many cigarettes per day: 1 - Social History ADL: Independent History of Recent Travel: No Home Medications - Allergies Allergies/Adverse Reactions: Allergies Allergy/AdvReac Type Severity Reaction Status Date / Time Penicillins Allergy Verified 02/25/19 10:04 - Home Medications Home Medications: Ambulatory Orders Zolpidem Tartrate [Ambien] 10 mg PO HS 10/14/11 Albuterol 0.083% Nebulizer Swapna [Ventolin 0.083% Nebulizer Soln -] 1 neb NEB QID 04/20/15 Atorvastatin Ca [Lipitor] 40 mg PO HS 04/20/15 Clonazepam 2 mg PO TID 04/20/15 Levothyroxine [Synthroid -] 50 mcg PO ACBK 01/03/18 Risperidone [Risperdal -] 2 mg PO DAILY 01/03/18 Guaifenesin 100 mg PO QID PRN #1 bottle 02/27/18 Albuterol Sulfate Inhaler - [Ventolin HFA Inhaler -] 2 inh PO QID PRN #1 inhaler 04/15/18 Methadone [Dolophine -] 90 mg PO DAILY@0600 06/04/18 Budesonide/Formeterol Fumarate [SYMBICORT 160/4.5mcg -] 2 puff IH BID 11/08/18 Gabapentin 300 mg PO BID 11/08/18 Sertraline HCl [Zoloft] 25 tab PO DAILY 11/08/18 hydrOXYzine PAMOATE [Vistaril -] 50 mg PO BID 11/12/18 Vital Signs: Vital Signs Temperature 98.6 F 02/26/19 14:00 Pulse Rate 67 02/26/19 14:00 Respiratory Rate 20 02/26/19 14:00 Blood Pressure 130/73 02/26/19 14:00 O2 Sat by Pulse Oximetry (%) 95 02/26/19 09:00 Constitutional: Yes: No Distress Neck: Yes: Supple Respiratory: Yes: CTA Bilaterally Gastrointestinal: Yes: Soft Cardiovascular: Yes: WNL, Regular Rate and Rhythm JVD: No Carotid Bruit: No PMI: Non-Displaced Heart Sounds: Yes: S1, S2 Murmur: No: Systolic Murmur Edema: No - Other Data Labs, Other Data: CBC, BMP 02/26/19 14:30 INR, PTT INR 1.06 (0.83-1.09) 02/25/19 11:59 Imaging - Results Chest X-ray: Report Reviewed EKG: Image Reviewed Assessment/Plan 53 year old female with a pmhx of esophageal cancer (RT and chemo in past), ex- IVDU on methadone, hypothyroidism, and asthma (on home O2) presenting with dizziness and headaches for 2 months and with recent productive cough. + slipped out of her bed but no loc. No chest pain or sob. No pnd, orthopnea, or edema. CT head no acute m/s/b EKG: sinus rhythm at 76bpm with nonspecific T wave abnormalities CXR: LLL infiltrate Echocardiogram: normal LVEF and no significant valve disease. Tele with HR 40s-80 EKG no signs of conduction disease. Patient with LLL pna and feeling much better after treatment Walked at slow pace in hallway and asymptomatic with rise to HR 80s. No significant pauses Echo no significant findings. Check TFT's On several medications that can cause dizziness. No further cardiac testing. Can DC tele. Will sign off Follow up as outpatient.
[2019-02-26 16:03] LABS: ALBUMIN 2.7 g/dl (3.4-5.0); BILIRUBIN,TOTAL 0.4 mg/dL (0.2-1); BLOOD UREA NITROGEN 6.6 mg/dL (7-18); CALCIUM 8.7 mg/dL (8.5-10.1); CREATININE 0.8 mg/dL (0.55-1.3); PHOSPHOROUS 3.4 mg/dL (2.5-4.9); POTASSIUM 4.5 mmol/L (3.5-5.1); TOT PROT 6.6 g/dl (6.4-8.2)
--- NOTE | 2019-02-26 18:51 | PN ---
Physical Exam: SUBJECTIVE: Patient seen and examined at the bedside. 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 Patient presents to the ED today with c/o dizziness, intermittent headaches for apx 2 months (sharp , unilateral, associated with loss of vision in her right field). The headaches are also associated with lightheadedness as well as vertiginous dizziness which caused the patient to slip out of her bed today. She reports hitting her head but denies any further trauma. She also reports worsening wet cough and congestion despite her home inhalers. she denies any chest pain, nausea/ vomiting or numbness. She is home oxygen dependent at 2 liters but often does not use her oxygen. She reports that she has been having trouble with swallowing at times since chemo and RT but is able to tolerate a pureed diet.4 for a swallow test and MBS today Vital Signs Period Temp Pulse Resp BP Sys/Cornelius Pulse Ox Last 24 Hr 97.6 F-98.9 F 50-67 17-20 106-133/62-77 95-95 GENERAL: Awake, alert, and fully oriented, in no acute distress. HEAD: Normal with no signs of trauma. EYES: Pupils equal, round and reactive to light, extraocular movements intact, sclera anicteric, conjunctiva clear. No lid lag. EARS, NOSE, THROAT: Ears normal, nares patent, oropharynx clear without exudates. Moist mucous membranes. NECK: Normal range of motion, supple without lymphadenopathy, JVD, or masses. LUNGS: wheezing, tolerating room air, HEART: Regular rate and rhythm, normal S1 and S2 without murmur, rub or gallop. ABDOMEN: Soft, nontender, not distended, normoactive bowel sounds, no guarding, no rebound, no masses. No hepatomegaly or splenomegaly. MUSCULOSKELETAL: Normal range of motion at all joints. No bony deformities or tenderness. No CVA tenderness. UPPER EXTREMITIES: 2+ pulses, warm, well-perfused. No cyanosis. No clubbing. No peripheral edema. LOWER EXTREMITIES: 2+ pulses, warm, well-perfused. No calf tenderness. No peripheral edema. NEUROLOGICAL: Cranial nerves II-XII intact. Normal speech. Normal gait. PSYCHIATRIC: Cooperative. Good eye contact. Appropriate mood and affect. SKIN: Warm, dry, normal turgor, no rashes or lesions noted, normal capillary refill. Laboratory Results - last 24 hr 02/26/19 02/26/19 02/26/19 14:30 14:30 14:30 WBC 8.9 RBC 3.62 Hgb 10.6 L Hct 32.3 L MCV 89.3 MCH 29.4 MCHC 32.9 RDW 13.3 Plt Count 222 MPV 8.2 Absolute Neuts (auto) 6.0 Neutrophils % 67.1 Lymphocytes % 25.4 D Monocytes % 5.0 Eosinophils % 2.1 D Basophils % 0.4 Nucleated RBC % 0 Sodium 139 Potassium 4.5 Chloride 101 Carbon Dioxide 37 H Anion Gap 2 L BUN 6.6 L Creatinine 0.8 Est GFR (CKD-EPI)AfAm 98.24 Est GFR (CKD-EPI)NonAf 84.76 Random Glucose 101 Hemoglobin A1c % 4.9 Calcium 8.7 Phosphorus 3.4 Magnesium 2.0 Total Bilirubin 0.4 AST 48 H ALT 38 Alkaline Phosphatase 118 H Total Protein 6.6 Albumin 2.7 L Active Medications Generic Name Dose Route Start Last Admin Trade Name Freq PRN Reason Stop Dose Admin Acetaminophen 650 mg 02/25/19 17:38 02/25/19 20:17 Tylenol - PO 650 mg Q6H PRN Administration FEVER Atorvastatin Calcium 40 mg 02/25/19 22:00 02/25/19 21:42 Lipitor - PO 40 mg HS MANUEL Administration Budesonide/Formoterol Fumarate 2 puff 02/25/19 22:00 02/26/19 09:55 Symbicort 160/4.5mcg - IH Not Given BID MANUEL Clonazepam 2 mg 02/25/19 22:00 02/26/19 16:04 Klonopin - PO 2 mg TID MANUEL Administration Gabapentin 300 mg 02/25/19 22:00 02/26/19 09:58 Neurontin - PO 300 mg BID [facility]UEL Administration Heparin Sodium (Porcine) 5,000 unit 02/25/19 22:00 02/26/19 10:02 Heparin - SQ 5,000 unit BID [facility]UEL Administration Azithromycin 500 mg in 250 mls @ 250 mls/hr 02/26/19 10:00 02/26/19 10:02 Zithromax 500mg Ivpb (Pre-Docked) IVPB 250 mls/hr DAILY [facility] Administration Ceftriaxone Sodium 1 gm/ 50 mls @ 100 mls/hr 02/26/19 10:00 02/26/19 10:02 Dextrose IVPB 100 mls/hr DAILY [facility] Administration Protocol Sodium Chloride 1,000 mls @ 100 mls/hr 02/25/19 17:45 02/25/19 19:30 Normal Saline - IV 100 mls/hr ASDIR [facility] Administration Levothyroxine Sodium 50 mcg 02/26/19 07:00 02/26/19 07:00 Synthroid - PO 50 mcg DAILY@0700 [facility] Administration Methadone HCl 80 mg/ Methadone 90 mg 02/26/19 07:45 02/26/19 09:56 HCl 10 mg PO 90 mg 0600 [facility] Administration Risperidone 2 mg 02/26/19 10:00 Risperdal - PO DAILY [facility] Sertraline HCl 25 mg 02/26/19 10:00 02/26/19 09:58 Zoloft - PO 25 mg DAILY [facility] Administration Zolpidem Tartrate 10 mg 02/25/19 22:00 02/25/19 22:04 Ambien - PO 10 mg HS PRN Administration INSOMNIA ASSESSMENT/PLAN: Problem List - Problems (1) Pneumonia Assessment/Plan: chest xray with segmental left lower lobe pneumonia rule out for aspiration pneumonia, as pt with hx of difficulty swallowing s/p chemo/rt for laryngeal cancer start on empiric antibiotics monitor vitals, labs, airway aspiration precautions chest ct pending read for swallow eval Code(s): J18.9 - PNEUMONIA, UNSPECIFIED ORGANISM Qualifiers: Pneumonia type: due to unspecified organism Laterality: left Lung location: lower lobe of lung Qualified Code(s): J18.9 - Pneumonia, unspecified organism (2) Headache Assessment/Plan: tylenol prn head ct negative Code(s): R51 - HEADACHE (3) Migraine Assessment/Plan: monitor for worsening headaches Code(s): G43.909 - MIGRAINE, UNSP, NOT INTRACTABLE, WITHOUT STATUS MIGRAINOSUS (4) COPD (chronic obstructive pulmonary disease) Assessment/Plan: continue home inhalers chest ct ordered and pending pulmonary following Code(s): J44.9 - CHRONIC OBSTRUCTIVE PULMONARY DISEASE, UNSPECIFIED (5) Hypothyroidism Assessment/Plan: continue synthroid Code(s): E03.9 - HYPOTHYROIDISM, UNSPECIFIED (6) Methadone maintenance therapy patient Assessment/Plan: on methadone 90 daily Code(s): F11.20 - OPIOID DEPENDENCE, UNCOMPLICATED (7) Laryngeal cancer Assessment/Plan: s/p chemo and rt 4 years ago. outpatient follow up (8) Vertigo Assessment/Plan: monitor on tele physical therapy Code(s): R42 - DIZZINESS AND GIDDINESS Visit type - Emergency Visit Emergency Visit: Yes ED Registration Date: 02/25/19 Care time: The patient presented to the Emergency Department on the above date and was hospitalized for further evaluation of their emergent condition. - New Patient This patient is new to me today: Yes Date on this admission: 03/01/19 - Critical Care Critical Care patient: No - Discharge Referral Referred to [facility] Med P.C.: No
[2019-02-26] MEDS: SODIUM CHLORIDE 1,000 ML IV SCH (19:30)
[2019-02-26] MEDS: ZOLPIDEM TARTRATE 5 MG TABLET PO PRN (22:22)
[2019-02-26] MEDS: ATORVASTATIN CA 40 MG TABLET (FP) PO SCH (22:22)
[2019-02-27] MEDS ORDERED: METHADONE HCL 10 MG TABLET ONE (06:21)
[2019-02-27] MEDS ORDERED: METHADONE HCL 40 MG DISPERSABLE TABLET ONE (06:21)
[2019-02-27] MEDS: LEVOTHYROXINE NA 50 MCG TABLET (FP) PO SCH (06:23)
[2019-02-27] MEDS: METHADONE 80 MG, METHADONE 10 MG PO SCH (06:23)
[2019-02-27] MEDS: clonazePAM 2 MG TABLET PO SCH (06:23)
[2019-02-27 07:10] LABS: BASO % 0.5 % (0-2.0); EOS % 2.4 % (0-4.5); HEMATOCRIT 27.9 % (32.4-45.2); HEMOGLOBIN 9.2 GM/dL (10.7-15.3); LYMPH % 27.4 % (8-40); MCH 29.5 pg (25.7-33.7); MEAN CELL VOLUME 89.4 fl (80-96); MEAN PLT VOLUME 8.3 fl (7.5-11.1); MONO % 5.8 % (3.8-10.2); NEUT % 63.9 % (42.8-82.8); PLATELET COUNT 197 K/MM3 (134-434); RBC 3.12 M/mm3 (3.60-5.2); RDW 13.2 % (11.6-15.6); WHITE BLOOD COUNT 6.1 K/mm3 (4.0-10.0)
[2019-02-27 07:39] LABS: ALBUMIN 1.8 g/dl (3.4-5.0); BILIRUBIN,TOTAL 0.1 mg/dL (0.2-1); BLOOD UREA NITROGEN 5.7 mg/dL (7-18); CREATININE 0.4 mg/dL (0.55-1.3); MAGNESIUM 1.1 mg/dL (1.8-2.4); POTASSIUM 3.8 mmol/L (3.5-5.1); TOT PROT 4.3 g/dl (6.4-8.2)
[2019-02-27 07:52] LABS: CALCIUM 6.1 mg/dL (8.5-10.1)
[2019-02-27] MEDS ORDERED: MAGNESIUM SULF 50% (8.12 MEQ/2 ML-1 GM VIAL) IVPB ONE (07:54)
[2019-02-27] MEDS ORDERED: clonazePAM 2 MG TABLET PO PRN (07:57)
[2019-02-27] MEDS ORDERED: DEXTROSE 5%-WATER - 50 ML IVPB ONE (09:21)
[2019-02-27] MEDS ORDERED: cefTRIAXone SODIUM 1 GM VIAL ONE (09:21)
[2019-02-27] MEDS ORDERED: risperiDONE 1 MG TABLET PO SCH (10:00)
[2019-02-27] MEDS ORDERED: CALCIUM (OYSTER SHELL) 500 MG TABLET (FP) PO SCH (10:00)
--- NOTE | 2019-02-27 10:14 | PN ---
Progress Note, Physician History of Present Illness: says she is feeling better no new issues - Current Medication List Current Medications: Active Medications Acetaminophen (Tylenol -) 650 mg PO Q6H PRN PRN Reason: FEVER Last Admin: 02/25/19 20:17 Dose: 650 mg Atorvastatin Calcium (Lipitor -) 40 mg PO HS [facility] Last Admin: 02/26/19 22:22 Dose: 40 mg Budesonide/Formoterol Fumarate (Symbicort 160/4.5mcg -) 2 puff IH BID [facility] Last Admin: 02/26/19 22:26 Dose: 2 puff Calcium Carbonate (Os-Cayden 500mg -) 500 mg PO BID [facility] Clonazepam (Klonopin -) 2 mg PO TID PRN PRN Reason: ANXIETY Gabapentin (Neurontin -) 300 mg PO BID [facility] Last Admin: 02/26/19 22:23 Dose: 300 mg Heparin Sodium (Porcine) (Heparin -) 5,000 unit SQ BID [facility] Last Admin: 02/26/19 22:22 Dose: 5,000 unit Azithromycin (Zithromax 500mg Ivpb (Pre-Docked)) 500 mg in 250 mls @ 250 mls/ hr IVPB DAILY [facility] Last Admin: 02/26/19 10:02 Dose: 250 mls/hr Ceftriaxone Sodium 1 gm/ (Dextrose) 50 mls @ 100 mls/hr IVPB DAILY [facility]; Protocol Last Admin: 02/26/19 10:02 Dose: 100 mls/hr Sodium Chloride (Normal Saline -) 1,000 mls @ 100 mls/hr IV ASDIR [facility] Last Admin: 02/26/19 19:30 Dose: 100 mls/hr Levothyroxine Sodium (Synthroid -) 50 mcg PO DAILY@0700 [facility] Last Admin: 02/27/19 06:23 Dose: 50 mcg Methadone HCl 80 mg/ Methadone (HCl 10 mg) 90 mg PO 0600 [facility] Last Admin: 02/27/19 06:23 Dose: 90 mg Risperidone (Risperdal -) 2 mg PO DAILY [facility] Sertraline HCl (Zoloft -) 25 mg PO DAILY [facility] Last Admin: 02/26/19 09:58 Dose: 25 mg Zolpidem Tartrate (Ambien -) 10 mg PO HS PRN PRN Reason: INSOMNIA Last Admin: 02/26/19 22:22 Dose: 10 mg - Objective Vital Signs: Vital Signs Temperature 97.8 F 02/27/19 06:00 Pulse Rate 65 02/27/19 06:00 Respiratory Rate 20 02/27/19 06:00 Blood Pressure 103/65 02/27/19 06:00 O2 Sat by Pulse Oximetry (%) 94 L 02/26/19 21:00 Constitutional: Yes: No Distress, Calm Cardiovascular: Yes: S1, S2 Respiratory: Yes: Regular, CTA Bilaterally Gastrointestinal: Yes: Normal Bowel Sounds, Soft, Other Musculoskeletal: Yes: WNL Extremities: Yes: WNL Neurological: Yes: Alert, Oriented Psychiatric: Yes: Alert, Oriented Labs: CBC, BMP 02/27/19 06:05 02/27/19 06:05 INR, PTT INR 1.06 (0.83-1.09) 02/25/19 11:59 Assessment/Plan Problem List - Problem (1) Pneumonia Code(s): J18.9 - PNEUMONIA, UNSPECIFIED ORGANISM Qualifiers: Pneumonia type: due to unspecified organism Laterality: left Lung location: lower lobe of lung Qualified Code(s): J18.9 - Pneumonia, unspecified organism (2) Headache Code(s): R51 - HEADACHE (3) Migraine Code(s): G43.909 - MIGRAINE, UNSP, NOT INTRACTABLE, WITHOUT STATUS MIGRAINOSUS (4) COPD (chronic obstructive pulmonary disease) Code(s): J44.9 - CHRONIC OBSTRUCTIVE PULMONARY DISEASE, UNSPECIFIED (5) Hypothyroidism Code(s): E03.9 - HYPOTHYROIDISM, UNSPECIFIED (6) Methadone maintenance therapy patient Code(s): F11.20 - OPIOID DEPENDENCE, UNCOMPLICATED (7) History of esophageal cancer Code(s): Z85.01 - PERSONAL HISTORY OF MALIGNANT NEOPLASM OF ESOPHAGUS (8) Vertigo Code(s): R42 - DIZZINESS AND GIDDINESS plan continue current mgmt ceftriaxone incentive siro rest as per the team
[2019-02-27] MEDS: CEFTRIAXONE 1 GM in DEXTROSE 5%-WATER - 50 ML IVPB SCH (10:29)
[2019-02-27] MEDS: AZITHROMYCIN IVPB 500 MG/250 ML BAG IVPB SCH (10:29)
[2019-02-27] MEDS: GABAPENTIN 300 MG CAPSULE PO SCH ×2 (10:30→21:17)
[2019-02-27] MEDS: SERTRALINE HCL 25 MG TABLET (FP) PO SCH (10:30)
[2019-02-27] MEDS: HEPARIN NA (PORCINE) 5,000 UNITS/ML 1ML VIAL SQ SCH ×2 (10:31→21:16)
[2019-02-27] MEDS: BUDESONIDE/FORMETEROL FUMARATE 160/4.5 mcg INHALER IH SCH ×2 (10:38→23:08)
--- NOTE | 2019-02-27 11:22 | PN ---
Progress Note (short form) - Note Progress Note: Feels a little better today. Congested cough. No CP. No acute events overnight. Intake & Output 02/24/19 02/25/19 02/26/19 02/27/19 23:59 23:59 23:59 23:59 Intake Total 2360 2200 1560 Balance 2360 2200 1560 Weight 152 lb 6.4 oz Last Vital Signs Temp Pulse Resp BP Pulse Ox 97.8 F 55 L 20 105/65 94 L 02/27/19 10:00 02/27/19 10:00 02/27/19 10:00 02/27/19 10:00 02/27/19 09:00 Active Medications Acetaminophen (Tylenol -) 650 mg PO Q6H PRN PRN Reason: FEVER Last Admin: 02/25/19 20:17 Dose: 650 mg Atorvastatin Calcium (Lipitor -) 40 mg PO HS [facility] Last Admin: 02/26/19 22:22 Dose: 40 mg Budesonide/Formoterol Fumarate (Symbicort 160/4.5mcg -) 2 puff IH BID [facility] Last Admin: 02/27/19 10:38 Dose: 2 puff Calcium Carbonate (Os-Cayden 500mg -) 500 mg PO BID [facility] Last Admin: 02/27/19 10:29 Dose: 500 mg Clonazepam (Klonopin -) 2 mg PO TID PRN PRN Reason: ANXIETY Gabapentin (Neurontin -) 300 mg PO BID [facility] Last Admin: 02/27/19 10:30 Dose: 300 mg Heparin Sodium (Porcine) (Heparin -) 5,000 unit SQ BID [facility] Last Admin: 02/27/19 10:31 Dose: 5,000 unit Azithromycin (Zithromax 500mg Ivpb (Pre-Docked)) 500 mg in 250 mls @ 250 mls/ hr IVPB DAILY [facility] Last Admin: 02/27/19 10:29 Dose: 250 mls/hr Ceftriaxone Sodium 1 gm/ (Dextrose) 50 mls @ 100 mls/hr IVPB DAILY [facility]; Protocol Last Admin: 02/27/19 10:29 Dose: 100 mls/hr Sodium Chloride (Normal Saline -) 1,000 mls @ 100 mls/hr IV ASDIR [facility] Last Admin: 02/26/19 19:30 Dose: 100 mls/hr Levothyroxine Sodium (Synthroid -) 50 mcg PO DAILY@0700 [facility] Last Admin: 02/27/19 06:23 Dose: 50 mcg Methadone HCl 80 mg/ Methadone (HCl 10 mg) 90 mg PO 0600 [facility] Last Admin: 02/27/19 06:23 Dose: 90 mg Risperidone (Risperdal -) 2 mg PO DAILY [facility] Last Admin: 02/27/19 10:30 Dose: 2 mg Sertraline HCl (Zoloft -) 25 mg PO DAILY [facility] Last Admin: 02/27/19 10:30 Dose: 25 mg Zolpidem Tartrate (Ambien -) 10 mg PO HS PRN PRN Reason: INSOMNIA Last Admin: 02/26/19 22:22 Dose: 10 mg GENERAL: Awake, alert, no acute distress. HEAD: Normal with no signs of trauma. EYES: sclera anicteric, conjunctiva clear. No lid lag. NECK: Normal range of motion, supple without lymphadenopathy, JVD, or masses. LUNGS: scattered bilateral rhonchi HEART: Regular rate and rhythm, normal S1 and S2 without murmur, rub or gallop. ABDOMEN: Soft, nontender, not distended, normoactive bowel sounds, no guarding, no rebound, no masses. No hepatomegaly or splenomegaly. MUSCULOSKELETAL: Normal range of motion at all joints. No bony deformities or tenderness. No CVA tenderness. UPPER EXTREMITIES: 2+ pulses, warm, well-perfused. No cyanosis. No clubbing. No peripheral edema. LOWER EXTREMITIES: 2+ pulses, warm, well-perfused. No calf tenderness. No peripheral edema. NEUROLOGICAL: Non-focal PSYCHIATRIC: Cooperative. Good eye contact. Appropriate mood and affect. SKIN: Warm, dry, normal turgor, no rashes or lesions noted, normal capillary refill. Laboratory Results - last 24 hr 02/26/19 02/26/19 02/26/19 14:30 14:30 14:30 WBC 8.9 RBC 3.62 Hgb 10.6 L Hct 32.3 L MCV 89.3 MCH 29.4 MCHC 32.9 RDW 13.3 Plt Count 222 MPV 8.2 Absolute Neuts (auto) 6.0 Neutrophils % 67.1 Lymphocytes % 25.4 D Monocytes % 5.0 Eosinophils % 2.1 D Basophils % 0.4 Nucleated RBC % 0 Sodium 139 Potassium 4.5 Chloride 101 Carbon Dioxide 37 H Anion Gap 2 L BUN 6.6 L Creatinine 0.8 Est GFR (CKD-EPI)AfAm 98.24 Est GFR (CKD-EPI)NonAf 84.76 Random Glucose 101 Hemoglobin A1c % 4.9 Calcium 8.7 Phosphorus 3.4 Magnesium 2.0 Total Bilirubin 0.4 AST 48 H ALT 38 Alkaline Phosphatase 118 H Total Protein 6.6 Albumin 2.7 L 02/27/19 02/27/19 06:05 06:05 WBC 6.1 RBC 3.12 L Hgb 9.2 L Hct 27.9 L MCV 89.4 MCH 29.5 MCHC 33.0 RDW 13.2 Plt Count 197 MPV 8.3 Absolute Neuts (auto) 3.9 Neutrophils % 63.9 Lymphocytes % 27.4 Monocytes % 5.8 Eosinophils % 2.4 Basophils % 0.5 Nucleated RBC % 0 Sodium 145 Potassium 3.8 Chloride 114 H Carbon Dioxide 27 Anion Gap 4 L BUN 5.7 L Creatinine 0.4 L Est GFR (CKD-EPI)AfAm 138.79 Est GFR (CKD-EPI)NonAf 119.75 Random Glucose 78 Hemoglobin A1c % Calcium 6.1 L* Phosphorus Magnesium 1.1 L Total Bilirubin 0.1 L AST 32 ALT 31 Alkaline Phosphatase 89 Total Protein 4.3 L Albumin 1.8 L Problem List - Problems (1) Pneumonia Code(s): J18.9 - PNEUMONIA, UNSPECIFIED ORGANISM Qualifiers: Pneumonia type: due to unspecified organism Laterality: left Lung location: lower lobe of lung Qualified Code(s): J18.9 - Pneumonia, unspecified organism (2) Asthma Code(s): J45.909 - UNSPECIFIED ASTHMA, UNCOMPLICATED (3) Chills Code(s): R68.83 - CHILLS (WITHOUT FEVER) (4) Headache Code(s): R51 - HEADACHE (5) COPD (chronic obstructive pulmonary disease) Code(s): J44.9 - CHRONIC OBSTRUCTIVE PULMONARY DISEASE, UNSPECIFIED (6) History of throat cancer Code(s): Z85.819 - PRSNL HX OF MALIG NEOPLM OF UNSP SITE LIP,ORAL CAV,& PHARYNX (7) Hyperlipidemia Code(s): E78.5 - HYPERLIPIDEMIA, UNSPECIFIED Qualifiers: Hyperlipidemia type: unspecified Qualified Code(s): E78.5 - Hyperlipidemia , unspecified (8) Hypothyroidism Code(s): E03.9 - HYPOTHYROIDISM, UNSPECIFIED (9) Acute on chronic respiratory failure with hypoxia and hypercapnia Code(s): J96.21 - ACUTE AND CHRONIC RESPIRATORY FAILURE WITH HYPOXIA; J96.22 - ACUTE AND CHRONIC RESPIRATORY FAILURE WITH HYPERCAPNIA IMP ACUTE ON CHRONIC HYPOXIC/HYPERCAPNEIC RESPIRATORY FAILURE PNEUMONIA ? ASPIRATION COPD O2 DEPENDENT WITH ACUTE EXACERBATION H/O LARYNGEAL CA S/P RT/CHEMO H/O SUBSTANCE ABUSE H/O PNEUMONIA H/O TOBACCO ABUSE ELEVATED CARBOXYHEMOGLOBIN LEVEL 4MM NODULE MEDIASTINAL ADENOPATHY; LARGEST 2.2 CM PLAN ABX PER ID O2 NEEDED INHALED BRONCHODILATORS FOLLOW CULTURES NO SMOKING WILL NEED RADIOGRAPHIC FOLLOW UP AN OUTPATIENT DR HAWLEY
[2019-02-27 14:31] LABS: ALBUMIN 2.8 g/dl (3.4-5.0); ALK PHOS 138 U/L (45-117); ANION GAP 5 MMOL/L (8-16); BILIRUBIN,TOTAL < 0.1 mg/dL (0.2-1); BLOOD UREA NITROGEN 8.1 mg/dL (7-18); CALCIUM 8.6 mg/dL (8.5-10.1); CHLORIDE 90 mmol/L (98-107); CO2 36 mmol/L (21-32); CREATININE 0.9 mg/dL (0.55-1.3); POTASSIUM 3.7 mmol/L (3.5-5.1); SGOT/AST 35 U/L (15-37); SGPT/ALT 44 U/L (13-61); SODIUM 130 mmol/L (136-145); TOT PROT 6.5 g/dl (6.4-8.2)
[2019-02-27 14:42] LABS: GLUCOSE,RANDOM 421 mg/dL (74-106)
--- NOTE | 2019-02-27 14:57 | PN ---
Progress Note, [employer] - Note Progress Note: Selected Entries 02/26/19 02/26/19 02/26/19 01:00 05:00 09:00 Breakfast Lunch Temperature 97.9 F 98.2 F 97.6 F Pulse Rate 64 50 L 59 L 02/26/19 02/26/19 02/26/19 12:41 14:00 18:00 Breakfast 75% Lunch 75% Temperature 98.6 F 98.4 F Pulse Rate 67 57 L 02/26/19 02/27/19 02/27/19 21:00 02:00 06:00 Breakfast Lunch Temperature 97.4 F L 97.9 F 97.8 F Pulse Rate 69 02/27/19 10:00 Breakfast Lunch Temperature 97.8 F Pulse Rate Laboratory Tests 02/25/19 02/26/19 02/27/19 11:59 14:30 06:05 WBC 13.9 H 8.9 6.1 Refer to radiologist report regarding possible esophageal strictures with hang up of Barium pill in cervical and then distal esophagus. CT chest noted Dys ground/nectar recommended, as well as compensatory swallowing recommendations of chin tuck, effortful swallow, alternate each bite with sip of liquid.
[2019-02-27] MEDS ORDERED: FLU VACCINE QUAD 60 MCG/0.5 ML (MDV 19-20) IM ONE (15:00)
[2019-02-27] MEDS ORDERED: ACETAMINOPHEN 325 MG TABLET (FP) PO PRN (15:52)
--- NOTE | 2019-02-27 16:01 | PN ---
Physical Exam: SUBJECTIVE: Patient seen and examined at the bedside. tolerating diet. denies headaches, chest pain or any malaise. 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 Patient presents to the ED today with c/o dizziness, intermittent headaches for apx 2 months. She also reports worsening wet cough and congestion despite her home inhalers. imaging: chest ct 02/26/19: (1) moderate centrilobar pneumonia mainly upper lobes, interstitial thickening and fine nodulairty of the left uper lobe and right mid lobe, findings suggestive of pneumonia/pneumonitis, infections vs inflammatory. (2) 4mm pulmonary nodule in the left lung base, non specific. modified barium swallow 02/26/2019: delayed passage of pill into the thoracic esophagus, possible esophageal stricture. upper endoscopy recommended. Vital Signs Period Temp Pulse Resp BP Sys/Cornelius Pulse Ox Last 24 Hr 97.4 F-98.4 F 55-69 18-20 100-146/63-88 94-94 GENERAL: The patient is awake, alert, and fully oriented, in no acute distress. HEAD: Normal with no signs of trauma. EYES: PERRL, extraocular movements intact, sclera anicteric, conjunctiva clear. No ptosis. ENT: Ears normal, nares patent, oropharynx clear without exudates, moist mucous membranes. NECK: Trachea midline, full range of motion, supple. LUNGS: congestion bilaterally, mildly improved. aspiration precautions HEART: Regular rate and rhythm, S1, S2 without murmur, rub or gallop. ABDOMEN: Soft, nontender, nondistended, normoactive bowel sounds EXTREMITIES: no edema. NEUROLOGICAL: Normal speech, gait not observed. PSYCH: Normal mood, normal affect. SKIN: Warm, dry, normal turgor, no rashes or lesions noted Laboratory Results - last 24 hr 02/26/19 02/27/19 02/27/19 14:30 06:05 06:05 WBC 6.1 RBC 3.12 L Hgb 9.2 L Hct 27.9 L MCV 89.4 MCH 29.5 MCHC 33.0 RDW 13.2 Plt Count 197 MPV 8.3 Absolute Neuts (auto) 3.9 Neutrophils % 63.9 Lymphocytes % 27.4 Monocytes % 5.8 Eosinophils % 2.4 Basophils % 0.5 Nucleated RBC % 0 Sodium 139 145 Potassium 4.5 3.8 Chloride 101 114 H Carbon Dioxide 37 H 27 Anion Gap 2 L 4 L BUN 6.6 L 5.7 L Creatinine 0.8 0.4 L Est GFR (CKD-EPI)AfAm 98.24 138.79 Est GFR (CKD-EPI)NonAf 84.76 119.75 Random Glucose 101 78 Calcium 8.7 6.1 L* Phosphorus 3.4 Magnesium 2.0 1.1 L Total Bilirubin 0.4 0.1 L AST 48 H 32 ALT 38 31 Alkaline Phosphatase 118 H 89 Total Protein 6.6 4.3 L Albumin 2.7 L 1.8 L 02/27/19 13:15 WBC RBC Hgb Hct MCV MCH MCHC RDW Plt Count MPV Absolute Neuts (auto) Neutrophils % Lymphocytes % Monocytes % Eosinophils % Basophils % Nucleated RBC % Sodium 130 L Potassium 3.7 Chloride 90 L Carbon Dioxide 36 H Anion Gap 5 L BUN 8.1 Creatinine 0.9 Est GFR (CKD-EPI)AfAm 85.20 Est GFR (CKD-EPI)NonAf 73.51 Random Glucose 421 H* Calcium 8.6 Phosphorus Magnesium Total Bilirubin < 0.1 L AST 35 ALT 44 Alkaline Phosphatase 138 H Total Protein 6.5 Albumin 2.8 L Active Medications Generic Name Dose Route Start Last Admin Trade Name Freq PRN Reason Stop Dose Admin Acetaminophen 650 mg 02/27/19 15:52 Tylenol - PO Q6H PRN FEVER Atorvastatin Calcium 40 mg 02/27/19 22:00 Lipitor - PO HS [facility] Budesonide/Formoterol Fumarate 2 puff 02/27/19 22:00 Symbicort 160/4.5mcg - IH BID [facility] Calcium Carbonate 500 mg 02/27/19 22:00 Os-Cayden 500mg - PO BID [facility] Clonazepam 2 mg 02/27/19 15:52 Klonopin - PO TID PRN ANXIETY Gabapentin 300 mg 02/27/19 22:00 Neurontin - PO BID [facility] Heparin Sodium (Porcine) 5,000 unit 02/27/19 22:00 Heparin - SQ BID [facility] Azithromycin 500 mg in 250 mls @ 250 mls/hr 02/28/19 10:00 Zithromax 500mg Ivpb (Pre-Docked) IVPB DAILY [facility] Ceftriaxone Sodium 1 gm/ 50 mls @ 100 mls/hr 02/28/19 10:00 Dextrose IVPB DAILY [facility] Protocol Sodium Chloride 1,000 mls @ 100 mls/hr 02/27/19 15:52 Normal Saline - IV ASDIR [facility] Levothyroxine Sodium 50 mcg 02/28/19 07:00 Synthroid - PO DAILY@0700 [facility] Methadone HCl 80 mg/ Methadone 90 mg 02/28/19 06:00 HCl 10 mg PO 0600 [facility] Risperidone 2 mg 02/28/19 10:00 Risperdal - PO DAILY [facility] Sertraline HCl 25 mg 02/28/19 10:00 Zoloft - PO DAILY [facility] Zolpidem Tartrate 10 mg 02/27/19 15:52 Ambien - PO HS PRN INSOMNIA ASSESSMENT/PLAN: Problem List - Problems (1) Esophageal stricture Assessment/Plan: modified barium swallow 02/26/2019: delayed passage of pill into the thoracic esophagus, possible esophageal stricture. upper endoscopy recommended. consulted GI Code(s): K22.2 - ESOPHAGEAL OBSTRUCTION (2) Pneumonia Assessment/Plan: chest xray with segmental left lower lobe pneumonia chest ct 02/26/19: (1) moderate centrilobar pneumonia mainly upper lobes, interstitial thickening and fine nodulairty of the left uper lobe and right mid lobe, findings suggestive of pneumonia/pneumonitis, infections vs inflammatory. (2) 4mm pulmonary nodule in the left lung base, non specific. rule out for aspiration pneumonia, as pt with hx of difficulty swallowing s/p chemo/rt for laryngeal cancer On Ceftriaxone and Azithromycin monitor vitals, labs, airway, on 2 liters prn but tolerating room air maintain oxygen levels above 92% Code(s): J18.9 - PNEUMONIA, UNSPECIFIED ORGANISM Qualifiers: Pneumonia type: due to unspecified organism Laterality: left Lung location: lower lobe of lung Qualified Code(s): J18.9 - Pneumonia, unspecified organism (3) Headache Assessment/Plan: tylenol prn head ct negative Code(s): R51 - HEADACHE (4) Migraine Assessment/Plan: monitor for worsening headaches Code(s): G43.909 - MIGRAINE, UNSP, NOT INTRACTABLE, WITHOUT STATUS MIGRAINOSUS (5) COPD (chronic obstructive pulmonary disease) Assessment/Plan: continue home inhalers pulmonary following Code(s): J44.9 - CHRONIC OBSTRUCTIVE PULMONARY DISEASE, UNSPECIFIED (6) Hypothyroidism Assessment/Plan: continue synthroid Code(s): E03.9 - HYPOTHYROIDISM, UNSPECIFIED (7) Methadone maintenance therapy patient Assessment/Plan: on methadone 90 daily Code(s): F11.20 - OPIOID DEPENDENCE, UNCOMPLICATED (8) Laryngeal cancer Assessment/Plan: s/p chemo and radiation 4 years ago. (9) Requires aspiration precautions Assessment/Plan: aspiration precautions on dysphagia ground with nectar thick liquids hob elevated with meals Code(s): Z91.89 - OTH PERSONAL RISK FACTORS, NOT ELSEWHERE CLASSIFIED (10) Vertigo Assessment/Plan: monitor on tele physical therapy Code(s): R42 - DIZZINESS AND GIDDINESS Visit type - Emergency Visit Emergency Visit: Yes ED Registration Date: 02/25/19 Care time: The patient presented to the Emergency Department on the above date and was hospitalized for further evaluation of their emergent condition. - New Patient This patient is new to me today: No - Critical Care Critical Care patient: No - Discharge Referral Referred to [facility] No
--- NOTE | 2019-02-27 16:15 | PN ---
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
[2019-02-27] MEDS: SODIUM CHLORIDE 1,000 ML IV SCH (18:51)
[2019-02-27] MEDS: CALCIUM (OYSTER SHELL) 500 MG TABLET (FP) PO SCH (21:17)
[2019-02-27] MEDS: ATORVASTATIN CA 40 MG TABLET (FP) PO SCH (21:17)
[2019-02-27] MEDS ORDERED: PT OWN MED DRAWER 7, Y5N ONE (21:36)
[2019-02-28 02:59] VITALS: BMI 25.2
[2019-02-28] MEDS ORDERED: METHADONE HCL 40 MG DISPERSABLE TABLET ONE (05:56)
[2019-02-28] MEDS ORDERED: METHADONE HCL 10 MG TABLET ONE (05:57)
[2019-02-28] MEDS: METHADONE 80 MG, METHADONE 10 MG PO SCH (06:06)
[2019-02-28] MEDS: LEVOTHYROXINE NA 50 MCG TABLET (FP) PO SCH (06:23)
[2019-02-28] MEDS: clonazePAM 2 MG TABLET PO PRN ×2 (06:57→17:32)
--- NOTE | 2019-02-28 08:14 | CON.GI ---
Consult Consult Specialty:: GI Referred by:: Yoselyn Rapp NP Reason for Consultation:: Esophageal Strictures on MBS - History of Present Illness History of Present Illness: Patient is a a 53 y/o female with past medical history of Laryngeal Cancer ( last Chemo and RT 4 yrs ago), ex IVDU, Hypothyroidism, Asthma. COnsult was placed due to MBS showing that a 1.3cm barium pill with stasis of the pill in the cervical esophagus, delayed passage into thoracic esophagus, stasis of the barium pill in the distal thoracic esophagus without passage into the stomach attributed to stricture. Patient had EGD done 03/2015 which showed stricture in upper esophagus and retroflexion of the scope reveal no abnormalities. Patient was instructed to follow up in tertiary center but states she did not follow up. She has been complaining of dysphagia with solids since Chemo and RT. She complains of RLQ pain radiating to right flank. She states she had a surgery in the [place] 6 yrs ago because of "rocks in her stomach". She is complaining of constipation and intermittent episodes of rectal bleeding for a few months. Colonoscopy done 01/10/19 which showed 5mm hyperplastic polyp in sigmoid colon, internal hemorrhoids. Patient says she has lost 10lbs in a couple of months. - History Source History Provided By: Patient Limitations to Obtaining History: No Limitations - Past Medical History Cardio/Vascular: Yes: HTN, Hyperlipdemia Pulmonary: Yes: Asthma ...LMP: 12/26/11 Psych: Yes: Addictions, Anxiety - Alcohol/Substance Use Hx Alcohol Use: No History of Substance Use: reports: Cocaine - Smoking History Smoking history: Current every day smoker Have you smoked in the past 12 months: No Aproximately how many cigarettes per day: 1 - Social History ADL: Independent History of Recent Travel: No Home Medications - Allergies Allergies/Adverse Reactions: Allergies Allergy/AdvReac Type Severity Reaction Status Date / Time Penicillins Allergy Verified 02/25/19 10:04 - Home Medications Home Medications: Ambulatory Orders Zolpidem Tartrate [Ambien] 10 mg PO HS 10/14/11 Albuterol 0.083% Nebulizer Swapna [Ventolin 0.083% Nebulizer Soln -] 1 neb NEB QID 04/20/15 Atorvastatin Ca [Lipitor] 40 mg PO HS 04/20/15 Clonazepam 2 mg PO TID 04/20/15 Levothyroxine [Synthroid -] 50 mcg PO ACBK 01/03/18 Risperidone [Risperdal -] 2 mg PO DAILY 01/03/18 Guaifenesin 100 mg PO QID PRN #1 bottle 02/27/18 Albuterol Sulfate Inhaler - [Ventolin HFA Inhaler -] 2 inh PO QID PRN #1 inhaler 04/15/18 Methadone [Dolophine -] 90 mg PO DAILY@0600 06/04/18 Budesonide/Formeterol Fumarate [SYMBICORT 160/4.5mcg -] 2 puff IH BID 11/08/18 Gabapentin 300 mg PO BID 11/08/18 Sertraline HCl [Zoloft] 25 tab PO DAILY 11/08/18 hydrOXYzine PAMOATE [Vistaril -] 50 mg PO BID 11/12/18 Review of Systems - Review of Systems Constitutional: reports: No Symptoms Eyes: reports: No Symptoms HENT: reports: Difficult Swallowing Neck: reports: No Symptoms Cardiovascular: reports: No Symptoms Respiratory: reports: No Symptoms Gastrointestinal: reports: Abdominal Pain, Constipation, Dysphagia, Rectal Bleeding Genitourinary: reports: No Symptoms Breasts: reports: No Symptoms Reported Musculoskeletal: reports: No Symptoms Integumentary: reports: No Symptoms Neurological: reports: No Symptoms Endocrine: reports: No Symptoms Hematology/Lymphatic: reports: No Symptoms Psychiatric: reports: No Symptoms Physical Exam-GI Vital Signs: Vital Signs Temperature 98.2 F 02/27/19 22:00 Pulse Rate 74 02/27/19 22:00 Respiratory Rate 18 02/27/19 22:00 Blood Pressure 103/55 L 02/27/19 22:00 O2 Sat by Pulse Oximetry (%) 94 L 02/27/19 20:53 Constitutional: Yes: No Distress, Calm Eyes: Yes: Conjunctiva Clear HENT: Yes: Atraumatic Cardiovascular: Yes: Regular Rate and Rhythm Respiratory: Yes: WNL Gastrointestinal Inspection: Yes: WNL, Scars. No: Ascites, Distention, Hernia, Other ...Auscultate: Yes: Normoactive Bowel Sounds. No: Hyperactive Bowel Sounds, Hypoactive Bowel Sounds, No Bowel Sounds, Other ...Palpate: Yes: Soft, Tenderness (rlq and llq), Tenderness, Epigastium. No: Firm/Rigid, Guarding, Hepatomegaly, Mass, Pulsatile Mass, Splenomegaly, Tenderness, Rebound, Other ...Percussion: Yes: Tympanitic. No: Dullness, Fluid Wave, Other Neurological: Yes: Alert, Oriented Psychiatric: Yes: Alert, Oriented Labs: CBC, BMP 02/27/19 06:05 02/27/19 13:15 INR, PTT INR 1.06 (0.83-1.09) 02/25/19 11:59 Active Medications Generic Name Dose Route Start Last Admin Trade Name Freq PRN Reason Stop Dose Admin Acetaminophen 650 mg 02/27/19 15:52 Tylenol - PO Q6H PRN FEVER Atorvastatin Calcium 40 mg 02/27/19 22:00 02/27/19 21:17 Lipitor - PO 40 mg HS MANUEL Administration Budesonide/Formoterol Fumarate 2 puff 02/27/19 22:00 02/27/19 23:08 Symbicort 160/4.5mcg - IH 2 units BID MANUEL Administration Calcium Carbonate 500 mg 02/27/19 22:00 02/27/19 21:17 Os-Cayden 500mg - PO 500 mg BID MANUEL Administration Clonazepam 2 mg 02/27/19 15:52 02/28/19 06:57 Klonopin - PO 2 mg TID PRN Administration ANXIETY Gabapentin 300 mg 02/27/19 22:00 02/27/19 21:17 Neurontin - PO 300 mg BID MANUEL Administration Heparin Sodium (Porcine) 5,000 unit 02/27/19 22:00 02/27/19 21:16 Heparin - SQ 5,000 unit BID MANUEL Administration Azithromycin 500 mg in 250 mls @ 250 mls/hr 02/28/19 10:00 Zithromax 500mg Ivpb (Pre-Docked) IVPB DAILY [facility] Ceftriaxone Sodium 1 gm/ 50 mls @ 100 mls/hr 02/28/19 10:00 Dextrose IVPB DAILY [facility] Protocol Sodium Chloride 1,000 mls @ 100 mls/hr 02/27/19 15:52 02/27/19 18:51 Normal Saline - IV 100 mls/hr ASDIR MANUEL Administration Levothyroxine Sodium 50 mcg 02/28/19 07:00 02/28/19 06:23 Synthroid - PO 50 mcg DAILY@0700 MANUEL Administration Methadone HCl 80 mg/ Methadone 90 mg 02/28/19 06:00 02/28/19 06:06 HCl 10 mg PO 90 mg 0600 MANUEL Administration Risperidone 2 mg 02/28/19 10:00 Risperdal - PO DAILY [facility] Sertraline HCl 25 mg 02/28/19 10:00 Zoloft - PO DAILY [facility] Zolpidem Tartrate 10 mg 02/27/19 15:52 Ambien - PO HS PRN INSOMNIA Imaging - Results Other: Report Reviewed (MBS) Problem List - Problems (1) RLQ abdominal pain Assessment/Plan: >Abdomen and Pelvic CT scan with contrast low fiber lactose free Flagyl 250mg TID r/o secondary to SIBO Code(s): R10.31 - RIGHT LOWER QUADRANT PAIN (2) Esophageal stricture Assessment/Plan: >Full Liquid diet >Barium Esophogram >will need to follow up with Dr Candido Vila at [facility] as an outpatient Code(s): K22.2 - ESOPHAGEAL OBSTRUCTION (3) Rectal bleeding Assessment/Plan: >Colonoscopy done performed 01/10/19, tumor markers ordered >monitor Hg Code(s): K62.5 - HEMORRHAGE OF ANUS AND RECTUM
[2019-02-28 08:38] LABS: BASO % 0.4 % (0-2.0); EOS % 1.9 % (0-4.5); HEMATOCRIT 32.4 % (32.4-45.2); HEMOGLOBIN 10.7 GM/dL (10.7-15.3); MCH 29.4 pg (25.7-33.7); MCHC 33.1 g/dl (32.0-36.0); MEAN CELL VOLUME 88.8 fl (80-96); MEAN PLT VOLUME 7.8 fl (7.5-11.1); MONO % 5.9 % (3.8-10.2); NEUT % 66.8 % (42.8-82.8); PLATELET COUNT 261 K/MM3 (134-434); RBC 3.65 M/mm3 (3.60-5.2); RDW 13.3 % (11.6-15.6); WHITE BLOOD COUNT 8.3 K/mm3 (4.0-10.0)
[2019-02-28 09:05] LABS: ALBUMIN 2.7 g/dl (3.4-5.0); BILIRUBIN,TOTAL 0.3 mg/dL (0.2-1); CALCIUM 9.2 mg/dL (8.5-10.1); CREATININE 0.7 mg/dL (0.55-1.3); POTASSIUM 4.3 mmol/L (3.5-5.1); TOT PROT 6.6 g/dl (6.4-8.2)
--- NOTE | 2019-02-28 09:34 | PN ---
Progress Note, Physician History of Present Illness: says she is doing well no new issues gi note noted - Current Medication List Current Medications: Active Medications Acetaminophen (Tylenol -) 650 mg PO Q6H PRN PRN Reason: FEVER Atorvastatin Calcium (Lipitor -) 40 mg PO HS COUNTS INCLUDE 234 BEDS AT THE [facility] Last Admin: 02/27/19 21:17 Dose: 40 mg Budesonide/Formoterol Fumarate (Symbicort 160/4.5mcg -) 2 puff IH BID COUNTS INCLUDE 234 BEDS AT THE [facility] Last Admin: 02/27/19 23:08 Dose: 2 units Calcium Carbonate (Os-Cayden 500mg -) 500 mg PO BID COUNTS INCLUDE 234 BEDS AT THE [facility] Last Admin: 02/27/19 21:17 Dose: 500 mg Clonazepam (Klonopin -) 2 mg PO TID PRN PRN Reason: ANXIETY Last Admin: 02/28/19 06:57 Dose: 2 mg Gabapentin (Neurontin -) 300 mg PO BID COUNTS INCLUDE 234 BEDS AT THE [facility] Last Admin: 02/27/19 21:17 Dose: 300 mg Heparin Sodium (Porcine) (Heparin -) 5,000 unit SQ BID COUNTS INCLUDE 234 BEDS AT THE [facility] Last Admin: 02/27/19 21:16 Dose: 5,000 unit Azithromycin (Zithromax 500mg Ivpb (Pre-Docked)) 500 mg in 250 mls @ 250 mls/ hr IVPB DAILY COUNTS INCLUDE 234 BEDS AT THE [facility] Ceftriaxone Sodium 1 gm/ (Dextrose) 50 mls @ 100 mls/hr IVPB DAILY COUNTS INCLUDE 234 BEDS AT THE [facility]; Protocol Sodium Chloride (Normal Saline -) 1,000 mls @ 100 mls/hr IV ASDIR COUNTS INCLUDE 234 BEDS AT THE [facility] Last Admin: 02/27/19 18:51 Dose: 100 mls/hr Levothyroxine Sodium (Synthroid -) 50 mcg PO DAILY@0700 COUNTS INCLUDE 234 BEDS AT THE [facility] Last Admin: 02/28/19 06:23 Dose: 50 mcg Methadone HCl 80 mg/ Methadone (HCl 10 mg) 90 mg PO 0600 COUNTS INCLUDE 234 BEDS AT THE [facility] Last Admin: 02/28/19 06:06 Dose: 90 mg Risperidone (Risperdal -) 2 mg PO DAILY COUNTS INCLUDE 234 BEDS AT THE [facility] Sertraline HCl (Zoloft -) 25 mg PO DAILY COUNTS INCLUDE 234 BEDS AT THE [facility] Zolpidem Tartrate (Ambien -) 10 mg PO HS PRN PRN Reason: INSOMNIA - Objective Vital Signs: Vital Signs Temperature 98.2 F 02/27/19 22:00 Pulse Rate 74 02/27/19 22:00 Respiratory Rate 18 02/27/19 22:00 Blood Pressure 103/55 L 02/27/19 22:00 O2 Sat by Pulse Oximetry (%) 94 L 02/27/19 20:53 Constitutional: Yes: No Distress, Calm Cardiovascular: Yes: S1, S2 Respiratory: Yes: Regular, CTA Bilaterally Gastrointestinal: Yes: Normal Bowel Sounds, Soft Musculoskeletal: Yes: WNL Extremities: Yes: Other Neurological: Yes: Alert, Oriented Psychiatric: Yes: Alert, Oriented Labs: CBC, BMP 02/28/19 07:50 02/28/19 07:50 INR, PTT INR 1.06 (0.83-1.09) 02/25/19 11:59 Assessment/Plan Problem List - Problem (1) Pneumonia Code(s): J18.9 - PNEUMONIA, UNSPECIFIED ORGANISM Qualifiers: Pneumonia type: due to unspecified organism Laterality: left Lung location: lower lobe of lung Qualified Code(s): J18.9 - Pneumonia, unspecified organism (2) Headache Code(s): R51 - HEADACHE (3) Migraine Code(s): G43.909 - MIGRAINE, UNSP, NOT INTRACTABLE, WITHOUT STATUS MIGRAINOSUS (4) COPD (chronic obstructive pulmonary disease) Code(s): J44.9 - CHRONIC OBSTRUCTIVE PULMONARY DISEASE, UNSPECIFIED (5) Hypothyroidism Code(s): E03.9 - HYPOTHYROIDISM, UNSPECIFIED (6) Methadone maintenance therapy patient Code(s): F11.20 - OPIOID DEPENDENCE, UNCOMPLICATED (7) History of esophageal cancer Code(s): Z85.01 - PERSONAL HISTORY OF MALIGNANT NEOPLASM OF ESOPHAGUS (8) Vertigo Code(s): R42 - DIZZINESS AND GIDDINESS plan continue current mgmt ceftriaxone incentive siro rest as per the team will consider deescalating soon
[2019-02-28] MEDS ORDERED: DEXTROSE 5%-WATER - 50 ML IVPB ONE (09:56)
[2019-02-28] MEDS ORDERED: cefTRIAXone SODIUM 1 GM VIAL ONE (09:56)
[2019-02-28] MEDS ORDERED: PT OWN MED DRAWER 7, Y5N ONE (09:56)
[2019-02-28] MEDS: SERTRALINE HCL 25 MG TABLET (FP) PO SCH (10:26)
[2019-02-28] MEDS: CALCIUM (OYSTER SHELL) 500 MG TABLET (FP) PO SCH ×2 (10:26→21:32)
[2019-02-28] MEDS: GABAPENTIN 300 MG CAPSULE PO SCH ×2 (10:26→21:32)
[2019-02-28] MEDS: HEPARIN NA (PORCINE) 5,000 UNITS/ML 1ML VIAL SQ SCH ×2 (10:27→21:33)
[2019-02-28] MEDS: BUDESONIDE/FORMETEROL FUMARATE 160/4.5 mcg INHALER IH SCH ×2 (10:33→21:32)
--- NOTE | 2019-02-28 11:16 | PN ---
Physical Exam: SUBJECTIVE: Patient seen and examined social work faculty member in the community is Linda Pabon [phone] and patient allows permission to speak to her freely. 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 Patient presents to the ED today with c/o dizziness, intermittent headaches for apx 2 months. She also reports worsening wet cough and congestion despite her home inhalers. imaging: chest ct 02/26/19: (1) moderate centrilobar pneumonia mainly upper lobes, interstitial thickening and fine nodulairty of the left uper lobe and right mid lobe, findings suggestive of pneumonia/pneumonitis, infections vs inflammatory. (2) 4mm pulmonary nodule in the left lung base, non specific. modified barium swallow 02/26/2019: delayed passage of pill into the thoracic esophagus, possible esophageal stricture. upper endoscopy recommended. patient agrees to follow up with Dr. Candido Vila as an outpatient for abd ct and esophagram today per GI Vital Signs Period Temp Pulse Resp BP Sys/Cornelius Pulse Ox Last 24 Hr 98.2 F-98.7 F 74-623 18-20 103-131/55-80 94 GENERAL: The patient is awake, alert, and fully oriented, in no acute distress. HEAD: Normal with no signs of trauma. EYES: PERRL, extraocular movements intact, sclera anicteric, conjunctiva clear. No ptosis. ENT: Ears normal, nares patent, oropharynx clear without exudates, moist mucous membranes. NECK: Trachea midline, full range of motion, supple. LUNGS: clear to auscultation bilaterally, congestion of lungs have resolved HEART: Regular rate and rhythm, S1, S2 without murmur, rub or gallop. ABDOMEN: Soft, nontender, nondistended, normoactive bowel sounds EXTREMITIES: no edema. NEUROLOGICAL: Normal speech, gait not observed. PSYCH: Normal mood, normal affect. SKIN: Warm, dry, normal turgor, no rashes or lesions noted Laboratory Results - last 24 hr 02/27/19 02/27/19 02/28/19 13:15 16:38 06:01 WBC RBC Hgb Hct MCV MCH MCHC RDW Plt Count MPV Absolute Neuts (auto) Neutrophils % Lymphocytes % Monocytes % Eosinophils % Basophils % Nucleated RBC % Sodium 130 L Potassium 3.7 Chloride 90 L Carbon Dioxide 36 H Anion Gap 5 L BUN 8.1 Creatinine 0.9 Est GFR (CKD-EPI)AfAm 85.20 Est GFR (CKD-EPI)NonAf 73.51 POC Glucometer 118 97 Random Glucose 421 H* Calcium 8.6 Magnesium Total Bilirubin < 0.1 L AST 35 ALT 44 Alkaline Phosphatase 138 H Total Protein 6.5 Albumin 2.8 L 02/28/19 02/28/19 07:50 07:50 WBC 8.3 RBC 3.65 Hgb 10.7 Hct 32.4 D MCV 88.8 MCH 29.4 MCHC 33.1 RDW 13.3 Plt Count 261 D MPV 7.8 Absolute Neuts (auto) 5.6 Neutrophils % 66.8 Lymphocytes % 25.0 Monocytes % 5.9 Eosinophils % 1.9 Basophils % 0.4 Nucleated RBC % 0 Sodium 138 Potassium 4.3 Chloride 99 Carbon Dioxide 35 H Anion Gap 4 L BUN 9.0 Creatinine 0.7 Est GFR (CKD-EPI)AfAm 115.45 Est GFR (CKD-EPI)NonAf 99.62 POC Glucometer Random Glucose 90 Calcium 9.2 Magnesium 2.0 Total Bilirubin 0.3 AST 28 ALT 38 Alkaline Phosphatase 127 H Total Protein 6.6 Albumin 2.7 L Active Medications Generic Name Dose Route Start Last Admin Trade Name Freq PRN Reason Stop Dose Admin Acetaminophen 650 mg 02/27/19 15:52 Tylenol - PO Q6H PRN FEVER Atorvastatin Calcium 40 mg 02/27/19 22:00 02/27/19 21:17 Lipitor - PO 40 mg HS MANUEL Administration Budesonide/Formoterol Fumarate 2 puff 02/27/19 22:00 02/28/19 10:33 Symbicort 160/4.5mcg - IH 2 units BID MANUEL Administration Calcium Carbonate 500 mg 02/27/19 22:00 02/28/19 10:26 Os-Cayden 500mg - PO 500 mg BID MANUEL Administration Clonazepam 2 mg 02/27/19 15:52 02/28/19 06:57 Klonopin - PO 2 mg TID PRN Administration ANXIETY Gabapentin 300 mg 02/27/19 22:00 02/28/19 10:26 Neurontin - PO 300 mg BID MANUEL Administration Heparin Sodium (Porcine) 5,000 unit 02/27/19 22:00 02/28/19 10:27 Heparin - SQ 5,000 unit BID MANUEL Administration Azithromycin 500 mg in 250 mls @ 250 mls/hr 02/28/19 10:00 Zithromax 500mg Ivpb (Pre-Docked) IVPB DAILY [facility] Ceftriaxone Sodium 1 gm/ 50 mls @ 100 mls/hr 02/28/19 10:00 Dextrose IVPB DAILY [facility] Protocol Sodium Chloride 1,000 mls @ 100 mls/hr 02/27/19 15:52 02/27/19 18:51 Normal Saline - IV 100 mls/hr ASDIR MANUEL Administration Levothyroxine Sodium 50 mcg 02/28/19 07:00 02/28/19 06:23 Synthroid - PO 50 mcg DAILY@0700 MANUEL Administration Methadone HCl 80 mg/ Methadone 90 mg 02/28/19 06:00 02/28/19 06:06 HCl 10 mg PO 90 mg 0600 MANUEL Administration Risperidone 2 mg 02/28/19 10:00 Risperdal - PO DAILY MANUEL Sertraline HCl 25 mg 02/28/19 10:00 02/28/19 10:26 Zoloft - PO 25 mg DAILY MANUEL Administration Zolpidem Tartrate 10 mg 02/27/19 15:52 Ambien - PO HS PRN INSOMNIA ASSESSMENT/PLAN: Problem List - Problems (1) Esophageal stricture Assessment/Plan: modified barium swallow 02/26/2019: delayed passage of pill into the thoracic esophagus, possible esophageal stricture. upper endoscopy recommended. patient for esophagram today Code(s): K22.2 - ESOPHAGEAL OBSTRUCTION (2) Pneumonia Assessment/Plan: chest xray with segmental left lower lobe pneumonia chest ct 02/26/19: (1) moderate centrilobar pneumonia mainly upper lobes, interstitial thickening and fine nodulairty of the left uper lobe and right mid lobe, findings suggestive of pneumonia/pneumonitis, infections vs inflammatory. (2) 4mm pulmonary nodule in the left lung base, non specific. possible aspiration pneumonia, as pt with hx of difficulty swallowing s/p chemo/ rt for laryngeal cancer On Ceftriaxone and Azithromycin tolerating room air Code(s): J18.9 - PNEUMONIA, UNSPECIFIED ORGANISM Qualifiers: Pneumonia type: due to unspecified organism Laterality: left Lung location: lower lobe of lung Qualified Code(s): J18.9 - Pneumonia, unspecified organism (3) Headache Assessment/Plan: tylenol prn head ct negative Code(s): R51 - HEADACHE (4) Migraine Assessment/Plan: headaches resolved Code(s): G43.909 - MIGRAINE, UNSP, NOT INTRACTABLE, WITHOUT STATUS MIGRAINOSUS (5) COPD (chronic obstructive pulmonary disease) Assessment/Plan: continue home inhalers pulmonary following Code(s): J44.9 - CHRONIC OBSTRUCTIVE PULMONARY DISEASE, UNSPECIFIED (6) Hypothyroidism Assessment/Plan: continue synthroid Code(s): E03.9 - HYPOTHYROIDISM, UNSPECIFIED (7) Methadone maintenance therapy patient Assessment/Plan: on methadone 90 daily Code(s): F11.20 - OPIOID DEPENDENCE, UNCOMPLICATED (8) Laryngeal cancer Assessment/Plan: s/p chemo and radiation 4 years ago. (9) Requires aspiration precautions Assessment/Plan: aspiration precautions gi recommends full liquid diet hob elevated with meals Code(s): Z91.89 - OTH PERSONAL RISK FACTORS, NOT ELSEWHERE CLASSIFIED Visit type - Emergency Visit Emergency Visit: Yes ED Registration Date: 02/25/19 Care time: The patient presented to the Emergency Department on the above date and was hospitalized for further evaluation of their emergent condition. - New Patient This patient is new to me today: No - Critical Care Critical Care patient: No - Discharge Referral Referred to [facility] Med P.C.: No
[2019-02-28] MEDS: risperiDONE 1 MG TABLET PO SCH (11:47)
[2019-02-28] MEDS: CEFTRIAXONE 1 GM in DEXTROSE 5%-WATER - 50 ML IVPB SCH (11:53)
--- NOTE | 2019-02-28 12:20 | PN ---
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 as an outpatient Tolerating diet, now downgraded to full liquids.
[2019-02-28] MEDS: AZITHROMYCIN IVPB 500 MG/250 ML BAG IVPB SCH (12:30)
--- NOTE | 2019-02-28 13:05 | PN ---
Progress Note, Physician History of Present Illness: pulmonary alert,feeling better,less dyspneic - Current Medication List Current Medications: Active Medications Acetaminophen (Tylenol -) 650 mg PO Q6H PRN PRN Reason: FEVER Atorvastatin Calcium (Lipitor -) [address] [facility] Last Admin: 02/27/19 21:17 Dose: 40 mg Budesonide/Formoterol Fumarate (Symbicort 160/4.5mcg -) [address] [facility] Last Admin: 02/28/19 10:33 Dose: 2 units Calcium Carbonate (Os-Cayden 500mg -) [address] [facility] Last Admin: 02/28/19 10:26 Dose: 500 mg Clonazepam (Klonopin -) 2 mg PO TID PRN PRN Reason: ANXIETY Last Admin: 02/28/19 06:57 Dose: 2 mg Gabapentin (Neurontin -) [address] [facility] Last Admin: 02/28/19 10:26 Dose: 300 mg Heparin Sodium (Porcine) (Heparin -) 5,[address] [facility] Last Admin: 02/28/19 10:27 Dose: 5,000 unit Azithromycin (Zithromax 500mg Ivpb (Pre-Docked)) 500 mg in 250 mls @ 250 mls/ hr IVPB DAILY [facility] Last Admin: 02/28/19 12:30 Dose: 250 mls/hr Ceftriaxone Sodium 1 gm/ (Dextrose) 50 mls @ 100 mls/hr IVPB DAILY [facility]; Protocol Last Admin: 02/28/19 11:53 Dose: 100 mls/hr Sodium Chloride (Normal Saline -) 1,000 mls @ 100 mls/hr IV ASDIR [facility] Last Admin: 02/27/19 18:51 Dose: 100 mls/hr Levothyroxine Sodium (Synthroid -) 50 mcg PO DAILY@0700 [facility] Last Admin: 02/28/19 06:23 Dose: 50 mcg Methadone HCl 80 mg/ Methadone (HCl 10 mg) [address] [facility] Last Admin: 02/28/19 06:06 Dose: 90 mg Risperidone (Risperdal -) [address] [facility] Last Admin: 02/28/19 11:47 Dose: 2 mg Sertraline HCl (Zoloft -) [address] [facility] Last Admin: 02/28/19 10:26 Dose: 25 mg Zolpidem Tartrate (Ambien -) 10 mg PO HS PRN PRN Reason: INSOMNIA - Objective Vital Signs: Vital Signs Temperature 98.0 F 02/28/19 10:00 Pulse Rate 65 02/28/19 10:00 Respiratory Rate 20 02/28/19 10:00 Blood Pressure 93/60 02/28/19 10:00 O2 Sat by Pulse Oximetry (%) 98 02/28/19 09:00 Constitutional: Yes: Well Nourished, Calm Eyes: Yes: WNL HENT: Yes: WNL Neck: Yes: WNL Cardiovascular: Yes: Regular Rate and Rhythm, S1, S2 Respiratory: Yes: Wheezes (scattered sukumar wheezes) Gastrointestinal: Yes: Normal Bowel Sounds, Soft Extremities: Yes: WNL Edema: No Labs: CBC, BMP 02/28/19 07:50 02/28/19 07:50 INR, PTT INR 1.06 (0.83-1.09) 02/25/19 11:59 Problem List - Problems (1) Pneumonia Code(s): J18.9 - PNEUMONIA, UNSPECIFIED ORGANISM Qualifiers: Pneumonia type: due to unspecified organism Laterality: left Lung location: lower lobe of lung Qualified Code(s): J18.9 - Pneumonia, unspecified organism (2) Asthma Code(s): J45.909 - UNSPECIFIED ASTHMA, UNCOMPLICATED (3) Chills Code(s): R68.83 - CHILLS (WITHOUT FEVER) (4) Headache Code(s): R51 - HEADACHE (5) COPD (chronic obstructive pulmonary disease) Code(s): J44.9 - CHRONIC OBSTRUCTIVE PULMONARY DISEASE, UNSPECIFIED (6) History of throat cancer Code(s): Z85.819 - PRSNL HX OF MALIG NEOPLM OF UNSP SITE LIP,ORAL CAV,& PHARYNX (7) Hyperlipidemia Code(s): E78.5 - HYPERLIPIDEMIA, UNSPECIFIED Qualifiers: Hyperlipidemia type: unspecified Qualified Code(s): E78.5 - Hyperlipidemia , unspecified (8) Hypothyroidism Code(s): E03.9 - HYPOTHYROIDISM, UNSPECIFIED (9) Acute on chronic respiratory failure with hypoxia and hypercapnia Code(s): J96.21 - ACUTE AND CHRONIC RESPIRATORY FAILURE WITH HYPOXIA; J96.22 - ACUTE AND CHRONIC RESPIRATORY FAILURE WITH HYPERCAPNIA Assessment/Plan IMP ACUTE ON CHRONIC HYPOXIC/HYPERCAPNEIC RESPIRATORY FAILURE improving PNEUMONIA ? ASPIRATION COPD O2 DEPENDENT WITH ACUTE EXACERBATION H/O LARYNGEAL CA S/P RT/CHEMO H/O SUBSTANCE ABUSE H/O PNEUMONIA H/O TOBACCO ABUSE ELEVATED CARBOXYHEMOGLOBIN LEVEL PLAN ABX O2 INHALED BRONCHODILATORS CULTURES F/U ABG DR ALEMAN Problem List - Problems (1) Pneumonia Code(s): J18.9 - PNEUMONIA, UNSPECIFIED ORGANISM Qualifiers: Pneumonia type: due to unspecified organism Laterality: left Lung location: lower lobe of lung Qualified Code(s): J18.9 - Pneumonia, unspecified organism (2) Asthma Code(s): J45.909 - UNSPECIFIED ASTHMA, UNCOMPLICATED (3) Chills Code(s): R68.83 - CHILLS (WITHOUT FEVER) (4) Headache Code(s): R51 - HEADACHE (5) COPD (chronic obstructive pulmonary disease) Code(s): J44.9 - CHRONIC OBSTRUCTIVE PULMONARY DISEASE, UNSPECIFIED (6) History of throat cancer Code(s): Z85.819 - PRSNL HX OF MALIG NEOPLM OF UNSP SITE LIP,ORAL CAV,& PHARYNX (7) Hyperlipidemia Code(s): E78.5 - HYPERLIPIDEMIA, UNSPECIFIED Qualifiers: Hyperlipidemia type: unspecified Qualified Code(s): E78.5 - Hyperlipidemia , unspecified (8) Hypothyroidism Code(s): E03.9 - HYPOTHYROIDISM, UNSPECIFIED (9) Acute on chronic respiratory failure with hypoxia and hypercapnia Code(s): J96.21 - ACUTE AND CHRONIC RESPIRATORY FAILURE WITH HYPOXIA; J96.22 - ACUTE AND CHRONIC RESPIRATORY FAILURE WITH HYPERCAPNIA
[2019-02-28 14:03] LABS: ARTERIAL BLD GAS O2 SATURATION 95.2 % (95-98); ARTERIAL BLOOD GAS PCO2 50.8 mmHg (35-45); ARTERIAL BLOOD GAS PO2 76.1 mmHg (80-100); ARTERIAL BLOOD GAS pH 7.42 (7.35-7.45)
[2019-02-28 14:14] LABS: ALLENS TEST POSITIVE
[2019-02-28] MEDS: metroNIDAZOLE 250 MG TABLET PO SCH ×2 (16:51→21:32)
[2019-02-28] MEDS: SODIUM CHLORIDE 1,000 ML IV SCH (16:54)
[2019-02-28] MEDS ORDERED: MAGNESIUM CITRATE 300 ML BOTTLE PO ONE (17:15)
[2019-02-28] MEDS: ATORVASTATIN CA 40 MG TABLET (FP) PO SCH (21:33)
[2019-02-28] MEDS ORDERED: ALBUTEROL SO4 0.083% IH SOL 2.5 MG/3 ML VIAL.NEB. NEB SCH (22:00)
[2019-03-01] MEDS ORDERED: METHADONE HCL 40 MG DISPERSABLE TABLET ONE (06:15)
[2019-03-01] MEDS ORDERED: METHADONE HCL 10 MG TABLET ONE (06:15)
[2019-03-01] MEDS: LEVOTHYROXINE NA 50 MCG TABLET (FP) PO SCH (06:24)
[2019-03-01] MEDS: METHADONE 80 MG, METHADONE 10 MG PO SCH (06:24)
[2019-03-01] MEDS: metroNIDAZOLE 250 MG TABLET PO SCH ×3 (06:24→21:07)
[2019-03-01 07:15] LABS: BASO % 0.6 % (0-2.0); EOS % 1.6 % (0-4.5); HEMATOCRIT 34.2 % (32.4-45.2); LYMPH % 12.8 % (8-40); MCH 28.6 pg (25.7-33.7); MCHC 32.1 g/dl (32.0-36.0); MEAN CELL VOLUME 89.2 fl (80-96); MEAN PLT VOLUME 7.8 fl (7.5-11.1); MONO % 5.2 % (3.8-10.2); NEUT % 79.8 % (42.8-82.8); PLATELET COUNT 290 K/MM3 (134-434); RBC 3.83 M/mm3 (3.60-5.2); RDW 13.6 % (11.6-15.6); WHITE BLOOD COUNT 11.6 K/mm3 (4.0-10.0)
[2019-03-01 07:23] LABS: ALBUMIN 2.9 g/dl (3.4-5.0); BILIRUBIN,TOTAL 0.3 mg/dL (0.2-1); BLOOD UREA NITROGEN 11.9 mg/dL (7-18); CALCIUM 9.2 mg/dL (8.5-10.1); CREATININE 0.7 mg/dL (0.55-1.3); TOT PROT 6.9 g/dl (6.4-8.2)
[2019-03-01] MEDS: clonazePAM 2 MG TABLET PO PRN (07:51)
[2019-03-01] MEDS: ALBUTEROL SO4 0.083% IH SOL 2.5 MG/3 ML VIAL.NEB. NEB SCH ×2 (08:15→11:32)
[2019-03-01] MEDS ORDERED: PT OWN MED DRAWER 7, Y5N ONE ×3 (09:02→20:58)
[2019-03-01] MEDS ORDERED: DEXTROSE 5%-WATER - 50 ML IVPB ONE (09:03)
[2019-03-01] MEDS ORDERED: cefTRIAXone SODIUM 1 GM VIAL ONE (09:03)
[2019-03-01] MEDS: HEPARIN NA (PORCINE) 5,000 UNITS/ML 1ML VIAL SQ SCH ×2 (09:04→21:06)
[2019-03-01] MEDS: CEFTRIAXONE 1 GM in DEXTROSE 5%-WATER - 50 ML IVPB SCH (09:04)
[2019-03-01] MEDS: GABAPENTIN 300 MG CAPSULE PO SCH ×2 (09:05→21:08)
[2019-03-01] MEDS: SERTRALINE HCL 25 MG TABLET (FP) PO SCH (09:05)
[2019-03-01] MEDS: risperiDONE 1 MG TABLET PO SCH (09:05)
[2019-03-01] MEDS: CALCIUM (OYSTER SHELL) 500 MG TABLET (FP) PO SCH ×2 (09:05→21:08)
[2019-03-01] MEDS: BUDESONIDE/FORMETEROL FUMARATE 160/4.5 mcg INHALER IH SCH ×2 (09:06→21:09)
[2019-03-01] MEDS: AZITHROMYCIN IVPB 500 MG/250 ML BAG IVPB SCH (09:55)
--- NOTE | 2019-03-01 11:36 | PN ---
Progress Note, Physician History of Present Illness: stable no new issues - Current Medication List Current Medications: Active Medications Acetaminophen (Tylenol -) 650 mg PO Q6H PRN PRN Reason: FEVER Albuterol Sulfate (Ventolin 0.083% Nebulizer Soln -) 1 amp NEB RQID [facility] Last Admin: 03/01/19 11:32 Dose: 1 amp Atorvastatin Calcium (Lipitor -) 40 mg PO HS [facility] Last Admin: 02/28/19 21:33 Dose: 40 mg Budesonide/Formoterol Fumarate (Symbicort 160/4.5mcg -) 2 puff IH BID [facility] Last Admin: 03/01/19 09:06 Dose: 2 units Calcium Carbonate (Os-Cayden 500mg -) 500 mg PO BID [facility] Last Admin: 03/01/19 09:05 Dose: 500 mg Clonazepam (Klonopin -) 2 mg PO TID PRN PRN Reason: ANXIETY Last Admin: 03/01/19 07:51 Dose: 2 mg Gabapentin (Neurontin -) 300 mg PO BID [facility] Last Admin: 03/01/19 09:05 Dose: 300 mg Heparin Sodium (Porcine) (Heparin -) 5,000 unit SQ BID [facility] Last Admin: 03/01/19 09:04 Dose: 5,000 unit Azithromycin (Zithromax 500mg Ivpb (Pre-Docked)) 500 mg in 250 mls @ 250 mls/ hr IVPB DAILY [facility] Last Admin: 03/01/19 09:55 Dose: 250 mls/hr Ceftriaxone Sodium 1 gm/ (Dextrose) 50 mls @ 100 mls/hr IVPB DAILY [facility]; Protocol Last Admin: 03/01/19 09:04 Dose: 100 mls/hr Sodium Chloride (Normal Saline -) 1,000 mls @ 100 mls/hr IV ASDIR [facility] Last Admin: 02/28/19 16:54 Dose: 100 mls/hr Levothyroxine Sodium (Synthroid -) 50 mcg PO DAILY@0700 [facility] Last Admin: 03/01/19 06:24 Dose: 50 mcg Methadone HCl 80 mg/ Methadone (HCl 10 mg) 90 mg PO 0600 [facility] Last Admin: 03/01/19 06:24 Dose: 90 mg Metronidazole (Flagyl -) 250 mg PO TID [facility] Last Admin: 03/01/19 06:24 Dose: 250 mg Risperidone (Risperdal -) 2 mg PO DAILY [facility] Last Admin: 03/01/19 09:05 Dose: 2 mg Sertraline HCl (Zoloft -) 25 mg PO DAILY [facility] Last Admin: 03/01/19 09:05 Dose: 25 mg Zolpidem Tartrate (Ambien -) 10 mg PO HS PRN PRN Reason: INSOMNIA - Objective Vital Signs: Vital Signs Temperature 98.4 F 03/01/19 10:00 Pulse Rate 89 03/01/19 10:00 Respiratory Rate 20 03/01/19 10:00 Blood Pressure 94/44 L 03/01/19 10:00 O2 Sat by Pulse Oximetry (%) 98 02/28/19 21:00 Constitutional: Yes: No Distress, Calm Cardiovascular: Yes: S1, S2 Respiratory: Yes: Regular, CTA Bilaterally Gastrointestinal: Yes: Normal Bowel Sounds, Soft Musculoskeletal: Yes: WNL Extremities: Yes: WNL Neurological: Yes: Alert, Oriented Psychiatric: Yes: Alert, Oriented Labs: CBC, BMP 03/01/19 06:28 03/01/19 06:28 INR, PTT INR 1.06 (0.83-1.09) 02/25/19 11:59 Assessment/Plan Problem List - Problem (1) Pneumonia Code(s): J18.9 - PNEUMONIA, UNSPECIFIED ORGANISM Qualifiers: Pneumonia type: due to unspecified organism Laterality: left Lung location: lower lobe of lung Qualified Code(s): J18.9 - Pneumonia, unspecified organism (2) Headache Code(s): R51 - HEADACHE (3) Migraine Code(s): G43.909 - MIGRAINE, UNSP, NOT INTRACTABLE, WITHOUT STATUS MIGRAINOSUS (4) COPD (chronic obstructive pulmonary disease) Code(s): J44.9 - CHRONIC OBSTRUCTIVE PULMONARY DISEASE, UNSPECIFIED (5) Hypothyroidism Code(s): E03.9 - HYPOTHYROIDISM, UNSPECIFIED (6) Methadone maintenance therapy patient Code(s): F11.20 - OPIOID DEPENDENCE, UNCOMPLICATED (7) History of esophageal cancer Code(s): Z85.01 - PERSONAL HISTORY OF MALIGNANT NEOPLASM OF ESOPHAGUS (8) Vertigo Code(s): R42 - DIZZINESS AND GIDDINESS plan continue current mgmt will deescalte
--- NOTE | 2019-03-01 12:54 | PN ---
Progress Note, Physician History of Present Illness: PULMONARY ALERT,-RESP DISTRESS,+ COUGH - Current Medication List Current Medications: Active Medications Acetaminophen (Tylenol -) 650 mg PO Q6H PRN PRN Reason: FEVER Albuterol Sulfate (Ventolin 0.083% Nebulizer Soln -) 1 amp NEB RQID [facility] Last Admin: 03/01/19 11:32 Dose: 1 amp Atorvastatin Calcium (Lipitor -) 40 mg PO HS [facility] Last Admin: 02/28/19 21:33 Dose: 40 mg Budesonide/Formoterol Fumarate (Symbicort 160/4.5mcg -) 2 puff IH BID [facility] Last Admin: 03/01/19 09:06 Dose: 2 units Calcium Carbonate (Os-Cayden 500mg -) 500 mg PO BID [facility] Last Admin: 03/01/19 09:05 Dose: 500 mg Clonazepam (Klonopin -) 2 mg PO TID PRN PRN Reason: ANXIETY Last Admin: 03/01/19 07:51 Dose: 2 mg Gabapentin (Neurontin -) 300 mg PO BID [facility] Last Admin: 03/01/19 09:05 Dose: 300 mg Heparin Sodium (Porcine) (Heparin -) 5,000 unit SQ BID [facility] Last Admin: 03/01/19 09:04 Dose: 5,000 unit Azithromycin (Zithromax 500mg Ivpb (Pre-Docked)) 500 mg in 250 mls @ 250 mls/ hr IVPB DAILY [facility] Last Admin: 03/01/19 09:55 Dose: 250 mls/hr Sodium Chloride (Normal Saline -) 1,000 mls @ 100 mls/hr IV ASDIR [facility] Last Admin: 02/28/19 16:54 Dose: 100 mls/hr Levothyroxine Sodium (Synthroid -) 50 mcg PO DAILY@0700 [facility] Last Admin: 03/01/19 06:24 Dose: 50 mcg Methadone HCl 80 mg/ Methadone (HCl 10 mg) 90 mg PO 0600 [facility] Last Admin: 03/01/19 06:24 Dose: 90 mg Metronidazole (Flagyl -) 250 mg PO TID [facility] Last Admin: 03/01/19 06:24 Dose: 250 mg Risperidone (Risperdal -) 2 mg PO DAILY [facility] Last Admin: 03/01/19 09:05 Dose: 2 mg Sertraline HCl (Zoloft -) 25 mg PO DAILY [facility] Last Admin: 03/01/19 09:05 Dose: 25 mg Zolpidem Tartrate (Ambien -) 10 mg PO HS PRN PRN Reason: INSOMNIA - Objective Vital Signs: Vital Signs Temperature 98.4 F 03/01/19 10:00 Pulse Rate 89 03/01/19 10:00 Respiratory Rate 20 03/01/19 10:00 Blood Pressure 94/44 L 03/01/19 10:00 O2 Sat by Pulse Oximetry (%) 96 03/01/19 09:00 Constitutional: Yes: Well Nourished, Calm Eyes: Yes: WNL HENT: Yes: WNL Neck: Yes: WNL Cardiovascular: Yes: Regular Rate and Rhythm, S1, S2 Respiratory: Yes: Rhonchi (FEW RHONCHI) Gastrointestinal: Yes: Normal Bowel Sounds, Soft Extremities: Yes: WNL Edema: No Labs: CBC, BMP 03/01/19 06:28 03/01/19 06:28 INR, PTT INR 1.06 (0.83-1.09) 02/25/19 11:59 Laboratory Tests 02/28/19 13:50 ABG pH 7.42 ABG pCO2 at Pt Temp 50.8 H ABG pO2 at Pt Temp 76.1 L ABG HCO3 32.1 H ABG O2 Sat (Measured) 95.2 Oxygen Flow Rate Room air Problem List - Problems (1) Pneumonia Code(s): J18.9 - PNEUMONIA, UNSPECIFIED ORGANISM Qualifiers: Pneumonia type: due to unspecified organism Laterality: left Lung location: lower lobe of lung Qualified Code(s): J18.9 - Pneumonia, unspecified organism (2) Asthma Code(s): J45.909 - UNSPECIFIED ASTHMA, UNCOMPLICATED (3) Chills Code(s): R68.83 - CHILLS (WITHOUT FEVER) (4) Headache Code(s): R51 - HEADACHE (5) COPD (chronic obstructive pulmonary disease) Code(s): J44.9 - CHRONIC OBSTRUCTIVE PULMONARY DISEASE, UNSPECIFIED (6) History of throat cancer Code(s): Z85.819 - PRSNL HX OF MALIG NEOPLM OF UNSP SITE LIP,ORAL CAV,& PHARYNX (7) Hyperlipidemia Code(s): E78.5 - HYPERLIPIDEMIA, UNSPECIFIED Qualifiers: Hyperlipidemia type: unspecified Qualified Code(s): E78.5 - Hyperlipidemia , unspecified (8) Hypothyroidism Code(s): E03.9 - HYPOTHYROIDISM, UNSPECIFIED (9) Acute on chronic respiratory failure with hypoxia and hypercapnia Code(s): J96.21 - ACUTE AND CHRONIC RESPIRATORY FAILURE WITH HYPOXIA; J96.22 - ACUTE AND CHRONIC RESPIRATORY FAILURE WITH HYPERCAPNIA Assessment/Plan IMP ACUTE ON CHRONIC HYPOXIC/HYPERCAPNEIC RESPIRATORY FAILURE improving PNEUMONIA ? ASPIRATION COPD O2 DEPENDENT WITH ACUTE EXACERBATION H/O LARYNGEAL CA S/P RT/CHEMO H/O SUBSTANCE ABUSE H/O PNEUMONIA H/O TOBACCO ABUSE ELEVATED CARBOXYHEMOGLOBIN LEVEL PLAN O2 NEEDED INHALED BRONCHODILATORS F/U ABG CARBOXYHEMOGLOBIN LEVEL DR ALEMAN Problem List - Problems (1) Pneumonia Code(s): J18.9 - PNEUMONIA, UNSPECIFIED ORGANISM Qualifiers: Pneumonia type: due to unspecified organism Laterality: left Lung location: lower lobe of lung Qualified Code(s): J18.9 - Pneumonia, unspecified organism (2) Asthma Code(s): J45.909 - UNSPECIFIED ASTHMA, UNCOMPLICATED (3) Chills Code(s): R68.83 - CHILLS (WITHOUT FEVER) (4) Headache Code(s): R51 - HEADACHE (5) COPD (chronic obstructive pulmonary disease) Code(s): J44.9 - CHRONIC OBSTRUCTIVE PULMONARY DISEASE, UNSPECIFIED (6) History of throat cancer Code(s): Z85.819 - PRSNL HX OF MALIG NEOPLM OF UNSP SITE LIP,ORAL CAV,& PHARYNX (7) Hyperlipidemia Code(s): E78.5 - HYPERLIPIDEMIA, UNSPECIFIED Qualifiers: Hyperlipidemia type: unspecified Qualified Code(s): E78.5 - Hyperlipidemia , unspecified (8) Hypothyroidism Code(s): E03.9 - HYPOTHYROIDISM, UNSPECIFIED (9) Acute on chronic respiratory failure with hypoxia and hypercapnia Code(s): J96.21 - ACUTE AND CHRONIC RESPIRATORY FAILURE WITH HYPOXIA; J96.22 - ACUTE AND CHRONIC RESPIRATORY FAILURE WITH HYPERCAPNIA
[2019-03-01] MEDS: SODIUM CHLORIDE 1,000 ML IV SCH ×2 (14:06→18:33)
--- NOTE | 2019-03-01 14:38 | PN ---
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 Patient presents to the ED today with c/o dizziness, intermittent headaches for apx 2 months. She also reports worsening wet cough and congestion despite her home inhalers. imaging: chest ct 02/26/19: (1) moderate centrilobar pneumonia mainly upper lobes, interstitial thickening and fine nodulairty of the left uper lobe and right mid lobe, findings suggestive of pneumonia/pneumonitis, infections vs inflammatory. (2) 4mm pulmonary nodule in the left lung base, non specific. modified barium swallow 02/26/2019: delayed passage of pill into the thoracic esophagus, possible esophageal stricture. upper endoscopy recommended. chest ct 02/28/19: moderate emphysema mainly upper lobes. ct suggest pneumonia/ pneumonitis. 4mmg nodule in the left lung base, borderline mediastinal lymhadenopathy. Vital Signs Period Temp Pulse Resp BP Sys/Cornelius Pulse Ox Last 24 Hr 97.9 F-98.9 F 65-89 18-20 90-133/44-71 96-98 GENERAL: The patient is awake, alert, and fully oriented, in no acute distress. HEAD: Normal with no signs of trauma. EYES: PERRL, extraocular movements intact, sclera anicteric, conjunctiva clear. No ptosis. ENT: Ears normal, nares patent, oropharynx clear without exudates, moist mucous membranes. NECK: Trachea midline, full range of motion, supple. LUNGS: clear to auscultation bilaterally, congestion of lungs have resolved HEART: Regular rate and rhythm, S1, S2 without murmur, rub or gallop. ABDOMEN: Soft, nontender, mildly distended, normoactive bowel sounds, bm today EXTREMITIES: no edema. NEUROLOGICAL: Normal speech, gait not observed. PSYCH: Normal mood, normal affect. SKIN: Warm, dry, normal turgor, no rashes or lesions noted Laboratory Results - last 24 hr 02/28/19 02/28/19 02/28/19 09:23 09:23 17:36 WBC RBC Hgb Hct MCV MCH MCHC RDW Plt Count MPV Absolute Neuts (auto) Neutrophils % Lymphocytes % Monocytes % Eosinophils % Basophils % Nucleated RBC % Carboxyhemoglobin Sodium Potassium Chloride Carbon Dioxide Anion Gap BUN Creatinine Est GFR (CKD-EPI)AfAm Est GFR (CKD-EPI)NonAf POC Glucometer 135 Random Glucose Calcium Magnesium Total Bilirubin AST ALT Alkaline Phosphatase Total Protein Albumin Carcinoembryonic Ag 9.0 H CA 125 Antigen 21.7 03/01/19 03/01/19 03/01/19 06:28 06:28 14:10 WBC 11.6 H RBC 3.83 Hgb 11.0 Hct 34.2 MCV 89.2 MCH 28.6 MCHC 32.1 RDW 13.6 Plt Count 290 MPV 7.8 Absolute Neuts (auto) 9.3 H Neutrophils % 79.8 Lymphocytes % 12.8 D Monocytes % 5.2 Eosinophils % 1.6 Basophils % 0.6 Nucleated RBC % 0 Carboxyhemoglobin 1.5 Sodium 140 Potassium 5.0 Chloride 100 Carbon Dioxide 35 H Anion Gap 5 L BUN 11.9 Creatinine 0.7 Est GFR (CKD-EPI)AfAm 115.45 Est GFR (CKD-EPI)NonAf 99.62 POC Glucometer Random Glucose 89 Calcium 9.2 Magnesium 2.0 Total Bilirubin 0.3 AST 33 ALT 42 Alkaline Phosphatase 145 H Total Protein 6.9 Albumin 2.9 L Carcinoembryonic Ag CA 125 Antigen Active Medications Generic Name Dose Route Start Last Admin Trade Name Freq PRN Reason Stop Dose Admin Acetaminophen 650 mg 02/27/19 15:52 Tylenol - PO Q6H PRN FEVER Albuterol Sulfate 1 amp 03/01/19 12:55 Ventolin 0.083% Nebulizer Soln - NEB Q4H PRN SHORT OF BREATH/WHEEZING Atorvastatin Calcium 40 mg 02/27/19 22:00 02/28/19 21:33 Lipitor - PO 40 mg HS [facility] Administration Budesonide/Formoterol Fumarate 2 puff 02/27/19 22:00 03/01/19 09:06 Symbicort 160/4.5mcg - IH 2 units BID [facility] Administration Calcium Carbonate 500 mg 02/27/19 22:00 03/01/19 09:05 Os-Cayden 500mg - PO 500 mg BID [facility] Administration Clonazepam 2 mg 02/27/19 15:52 03/01/19 07:51 Klonopin - PO 2 mg TID PRN Administration ANXIETY Gabapentin 300 mg 02/27/19 22:00 03/01/19 09:05 Neurontin - PO 300 mg BID [facility] Administration Heparin Sodium (Porcine) 5,000 unit 02/27/19 22:00 03/01/19 09:04 Heparin - SQ 5,000 unit BID [facility] Administration Azithromycin 500 mg in 250 mls @ 250 mls/hr 02/28/19 10:00 03/01/19 09:55 Zithromax 500mg Ivpb (Pre-Docked) IVPB 250 mls/hr DAILY [facility] Administration Sodium Chloride 1,000 mls @ 100 mls/hr 02/27/19 15:52 03/01/19 14:06 Normal Saline - IV 100 mls/hr ASDIR [facility] Administration Levothyroxine Sodium 50 mcg 02/28/19 07:00 03/01/19 06:24 Synthroid - PO 50 mcg DAILY@0700 [facility] Administration Methadone HCl 80 mg/ Methadone 90 mg 02/28/19 06:00 03/01/19 06:24 HCl 10 mg PO 90 mg 0600 [facility] Administration Metronidazole 250 mg 02/28/19 14:45 03/01/19 13:44 Flagyl - PO 250 mg TID [facility] Administration Risperidone 2 mg 02/28/19 10:00 03/01/19 09:05 Risperdal - PO 2 mg DAILY [facility] Administration Sertraline HCl 25 mg 02/28/19 10:00 03/01/19 09:05 Zoloft - PO 25 mg DAILY [facility] Administration Zolpidem Tartrate 10 mg 02/27/19 15:52 Ambien - PO HS PRN INSOMNIA ASSESSMENT/PLAN: Problem List - Problems (1) Esophageal stricture Assessment/Plan: modified barium swallow 02/26/2019: delayed passage of pill into the thoracic esophagus, possible esophageal stricture. upper endoscopy recommended. patient for esophagram Code(s): K22.2 - ESOPHAGEAL OBSTRUCTION (2) Pneumonia Assessment/Plan: chest xray with segmental left lower lobe pneumonia chest ct 02/28/19: moderate emphysema mainly upper lobes. ct suggest pneumonia/ pneumonitis. 4mm nodule in the left lung base, borderline mediastinal lymhadenopathy. on azithromycin, ceftriaxone monitor vitals, labs, airway aspiration precautions Code(s): J18.9 - PNEUMONIA, UNSPECIFIED ORGANISM Qualifiers: Pneumonia type: due to unspecified organism Laterality: left Lung location: lower lobe of lung Qualified Code(s): J18.9 - Pneumonia, unspecified organism (3) Headache Assessment/Plan: tylenol prn head ct negative Code(s): R51 - HEADACHE (4) Migraine Assessment/Plan: resolved Code(s): G43.909 - MIGRAINE, UNSP, NOT INTRACTABLE, WITHOUT STATUS MIGRAINOSUS (5) COPD (chronic obstructive pulmonary disease) Assessment/Plan: continue home inhalers not in acute exacerbation pulmonary following Code(s): J44.9 - CHRONIC OBSTRUCTIVE PULMONARY DISEASE, UNSPECIFIED (6) Hypothyroidism Assessment/Plan: continue synthroid Code(s): E03.9 - HYPOTHYROIDISM, UNSPECIFIED (7) Methadone maintenance therapy patient Assessment/Plan: on methadone 90 daily Code(s): F11.20 - OPIOID DEPENDENCE, UNCOMPLICATED (8) Laryngeal cancer Assessment/Plan: s/p chemo and rt 4 years ago. outpatient follow up (9) Requires aspiration precautions Assessment/Plan: aspiration precautions gi recommends full liquid diet hob elevated with meals Code(s): Z91.89 - OTH PERSONAL RISK FACTORS, NOT ELSEWHERE CLASSIFIED Visit type - Emergency Visit Emergency Visit: Yes ED Registration Date: 02/25/19 Care time: The patient presented to the Emergency Department on the above date and was hospitalized for further evaluation of their emergent condition. - New Patient This patient is new to me today: No - Critical Care Critical Care patient: No - Discharge Referral Referred to [facility] Med P.C.: No
[2019-03-01] MEDS: ALBUTEROL SO4 0.083% IH SOL 2.5 MG/3 ML VIAL.NEB. NEB PRN (20:15)
[2019-03-01] MEDS: ATORVASTATIN CA 40 MG TABLET (FP) PO SCH (21:08)
[2019-03-02] MEDS ORDERED: METHADONE HCL 10 MG TABLET ONE (05:51)
[2019-03-02] MEDS ORDERED: METHADONE HCL 40 MG DISPERSABLE TABLET ONE (05:51)
[2019-03-02] MEDS: METHADONE 80 MG, METHADONE 10 MG PO SCH (05:56)
[2019-03-02] MEDS: clonazePAM 2 MG TABLET PO PRN ×3 (05:58→23:25)
[2019-03-02] MEDS: metroNIDAZOLE 250 MG TABLET PO SCH ×3 (06:01→23:26)
[2019-03-02] MEDS: LEVOTHYROXINE NA 50 MCG TABLET (FP) PO SCH (06:17)
[2019-03-02 08:30] LABS: BASO % 0.8 % (0-2.0); EOS % 2.8 % (0-4.5); HEMATOCRIT 33.9 % (32.4-45.2); HEMOGLOBIN 11.3 GM/dL (10.7-15.3); LYMPH % 18.2 % (8-40); MCH 29.7 pg (25.7-33.7); MCHC 33.2 g/dl (32.0-36.0); MEAN CELL VOLUME 89.4 fl (80-96); MEAN PLT VOLUME 7.8 fl (7.5-11.1); MONO % 6.9 % (3.8-10.2); NEUT % 71.3 % (42.8-82.8); PLATELET COUNT 332 K/MM3 (134-434); RBC 3.79 M/mm3 (3.60-5.2); RDW 13.7 % (11.6-15.6); WHITE BLOOD COUNT 10.3 K/mm3 (4.0-10.0)
--- NOTE | 2019-03-02 08:31 | PN ---
Progress Note, Physician History of Present Illness: stable no new issues - Current Medication List Current Medications: Active Medications Acetaminophen (Tylenol -) 650 mg PO Q6H PRN PRN Reason: FEVER Albuterol Sulfate (Ventolin 0.083% Nebulizer Soln -) 1 amp NEB Q4H PRN PRN Reason: SHORT OF BREATH/WHEEZING Last Admin: 03/01/19 20:15 Dose: 1 amp Atorvastatin Calcium (Lipitor -) 40 mg PO HS [facility] Last Admin: 03/01/19 21:08 Dose: 40 mg Budesonide/Formoterol Fumarate (Symbicort 160/4.5mcg -) 2 puff IH BID [facility] Last Admin: 03/01/19 21:09 Dose: 2 units Calcium Carbonate (Os-Cayden 500mg -) 500 mg PO BID [facility] Last Admin: 03/01/19 21:08 Dose: 500 mg Clonazepam (Klonopin -) 2 mg PO TID PRN PRN Reason: ANXIETY Last Admin: 03/02/19 05:58 Dose: 2 mg Gabapentin (Neurontin -) 300 mg PO BID [facility] Last Admin: 03/01/19 21:08 Dose: 300 mg Heparin Sodium (Porcine) (Heparin -) 5,000 unit SQ BID [facility] Last Admin: 03/01/19 21:06 Dose: 5,000 unit Azithromycin (Zithromax 500mg Ivpb (Pre-Docked)) 500 mg in 250 mls @ 250 mls/ hr IVPB DAILY [facility] Last Admin: 03/01/19 09:55 Dose: 250 mls/hr Sodium Chloride (Normal Saline -) 1,000 mls @ 100 mls/hr IV ASDIR [facility] Last Admin: 03/01/19 18:33 Dose: Not Given Levothyroxine Sodium (Synthroid -) 50 mcg PO DAILY@0700 [facility] Last Admin: 03/02/19 06:17 Dose: 50 mcg Methadone HCl 80 mg/ Methadone (HCl 10 mg) 90 mg PO 0600 [facility] Last Admin: 03/02/19 05:56 Dose: 90 mg Metronidazole (Flagyl -) 250 mg PO TID [facility] Last Admin: 03/02/19 06:01 Dose: 250 mg Risperidone (Risperdal -) 2 mg PO DAILY [facility] Last Admin: 03/01/19 09:05 Dose: 2 mg Sertraline HCl (Zoloft -) 25 mg PO DAILY [facility] Last Admin: 03/01/19 09:05 Dose: 25 mg Zolpidem Tartrate (Ambien -) 10 mg PO HS PRN PRN Reason: INSOMNIA - Objective Vital Signs: Vital Signs Temperature 98.5 F 03/02/19 06:00 Pulse Rate 72 03/02/19 06:00 Respiratory Rate 20 03/02/19 06:00 Blood Pressure 90/59 L 03/02/19 06:00 O2 Sat by Pulse Oximetry (%) 96 03/01/19 20:41 Constitutional: Yes: No Distress, Calm Cardiovascular: Yes: S1, S2 Respiratory: Yes: Regular, CTA Bilaterally Gastrointestinal: Yes: Normal Bowel Sounds, Soft Musculoskeletal: Yes: WNL Extremities: Yes: WNL Neurological: Yes: Alert, Oriented Psychiatric: Yes: Alert, Oriented Labs: INR, PTT INR 1.06 (0.83-1.09) 02/25/19 11:59 Assessment/Plan Problem List - Problem (1) Pneumonia Code(s): J18.9 - PNEUMONIA, UNSPECIFIED ORGANISM Qualifiers: Pneumonia type: due to unspecified organism Laterality: left Lung location: lower lobe of lung Qualified Code(s): J18.9 - Pneumonia, unspecified organism (2) Headache Code(s): R51 - HEADACHE (3) Migraine Code(s): G43.909 - MIGRAINE, UNSP, NOT INTRACTABLE, WITHOUT STATUS MIGRAINOSUS (4) COPD (chronic obstructive pulmonary disease) Code(s): J44.9 - CHRONIC OBSTRUCTIVE PULMONARY DISEASE, UNSPECIFIED (5) Hypothyroidism Code(s): E03.9 - HYPOTHYROIDISM, UNSPECIFIED (6) Methadone maintenance therapy patient Code(s): F11.20 - OPIOID DEPENDENCE, UNCOMPLICATED (7) History of esophageal cancer Code(s): Z85.01 - PERSONAL HISTORY OF MALIGNANT NEOPLASM OF ESOPHAGUS (8) Vertigo Code(s): R42 - DIZZINESS AND GIDDINESS plan continue current mgmt monitor
[2019-03-02] MEDS ORDERED: PT OWN MED DRAWER 7, Y5N ONE (08:48)
[2019-03-02 08:58] LABS: ALBUMIN 3.1 g/dl (3.4-5.0); BILIRUBIN,TOTAL 0.2 mg/dL (0.2-1); BLOOD UREA NITROGEN 10.8 mg/dL (7-18); CALCIUM 9.5 mg/dL (8.5-10.1); CREATININE 0.6 mg/dL (0.55-1.3); MAGNESIUM 2.1 mg/dL (1.8-2.4); POTASSIUM 4.8 mmol/L (3.5-5.1)
[2019-03-02] MEDS: ALBUTEROL SO4 0.083% IH SOL 2.5 MG/3 ML VIAL.NEB. NEB PRN ×4 (09:00→20:00)
[2019-03-02] MEDS: GABAPENTIN 300 MG CAPSULE PO SCH ×2 (09:23→23:24)
[2019-03-02] MEDS: SERTRALINE HCL 25 MG TABLET (FP) PO SCH (09:23)
[2019-03-02] MEDS: CALCIUM (OYSTER SHELL) 500 MG TABLET (FP) PO SCH ×2 (09:24→23:24)
[2019-03-02] MEDS: risperiDONE 1 MG TABLET PO SCH (09:25)
[2019-03-02] MEDS: AZITHROMYCIN IVPB 500 MG/250 ML BAG IVPB SCH (09:25)
[2019-03-02] MEDS: HEPARIN NA (PORCINE) 5,000 UNITS/ML 1ML VIAL SQ SCH ×2 (09:26→23:26)
[2019-03-02] MEDS: BUDESONIDE/FORMETEROL FUMARATE 160/4.5 mcg INHALER IH SCH ×2 (09:29→23:25)
--- NOTE | 2019-03-02 14:28 | PN ---
Physical Exam: SUBJECTIVE: Patient seen and examined at the bedside. ambulating around room without oxygen, feels well. no abdominal pain. 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 Patient presents to the ED with c/o dizziness, intermittent headaches for apx 2 months. She also reports worsening wet cough and congestion despite her home inhalers. imaging: -chest ct 02/26/19: (1) moderate centrilobar pneumonia mainly upper lobes, interstitial thickening and fine nodulairty of the left uper lobe and right mid lobe, findings suggestive of pneumonia/pneumonitis, infections vs inflammatory. (2) 4mm pulmonary nodule in the left lung base, non specific. -modified barium swallow 02/26/2019: delayed passage of pill into the thoracic esophagus, possible esophageal stricture. upper endoscopy recommended. -chest ct 02/28/19: moderate emphysema mainly upper lobes. ct suggest pneumonia /pneumonitis. 4mmg nodule in the left lung base, borderline mediastinal lymhadenopathy. Period Temp Pulse Resp BP Sys/Cornelius Pulse Ox Last 24 Hr 97.3 F-98.5 F 72-83 20-20 90-126/59-75 96 GENERAL: The patient is awake, alert, and fully oriented, in no acute distress. HEAD: Normal with no signs of trauma. EYES: PERRL, extraocular movements intact, sclera anicteric, conjunctiva clear. No ptosis. ENT: Ears normal, nares patent, oropharynx clear without exudates, moist mucous membranes. NECK: Trachea midline, full range of motion, supple. LUNGS: clear to auscultation bilaterally, congestion of lungs have resolved HEART: Regular rate and rhythm, S1, S2 without murmur, rub or gallop. ABDOMEN: Soft, nontender, mildly distended, normoactive bowel sounds, bm today EXTREMITIES: no edema. NEUROLOGICAL: Normal speech, gait not observed. PSYCH: Normal mood, normal affect. SKIN: Warm, dry, normal turgor, no rashes or lesions noted Laboratory Results - last 24 hr 02/28/19 03/01/19 03/02/19 09:23 17:32 06:05 WBC RBC Hgb Hct MCV MCH MCHC RDW Plt Count MPV Absolute Neuts (auto) Neutrophils % Lymphocytes % Monocytes % Eosinophils % Basophils % Nucleated RBC % Sodium Potassium Chloride Carbon Dioxide Anion Gap BUN Creatinine Est GFR (CKD-EPI)AfAm Est GFR (CKD-EPI)NonAf POC Glucometer 98 92 Random Glucose Calcium Magnesium Total Bilirubin AST ALT Alkaline Phosphatase Total Protein Albumin CA 19-9 Antigen 10 03/02/19 03/02/19 07:45 07:45 WBC 10.3 H RBC 3.79 Hgb 11.3 Hct 33.9 MCV 89.4 MCH 29.7 MCHC 33.2 RDW 13.7 Plt Count 332 MPV 7.8 Absolute Neuts (auto) 7.4 Neutrophils % 71.3 Lymphocytes % 18.2 D Monocytes % 6.9 Eosinophils % 2.8 Basophils % 0.8 Nucleated RBC % 0 Sodium 137 Potassium 4.8 Chloride 99 Carbon Dioxide 33 H Anion Gap 5 L BUN 10.8 Creatinine 0.6 Est GFR (CKD-EPI)AfAm 121.46 Est GFR (CKD-EPI)NonAf 104.80 POC Glucometer Random Glucose 86 Calcium 9.5 Magnesium 2.1 Total Bilirubin 0.2 AST 23 ALT 36 Alkaline Phosphatase 140 H Total Protein 7.0 Albumin 3.1 L CA 19-9 Antigen Active Medications Generic Name Dose Route Start Last Admin Trade Name Freq PRN Reason Stop Dose Admin Acetaminophen 650 mg 02/27/19 15:52 Tylenol - PO Q6H PRN FEVER Albuterol Sulfate 1 amp 03/01/19 12:55 03/02/19 11:20 Ventolin 0.083% Nebulizer Soln - NEB 1 amp Q4H PRN Administration SHORT OF BREATH/WHEEZING Atorvastatin Calcium 40 mg 02/27/19 22:00 03/01/19 21:08 Lipitor - PO 40 mg HS MANUEL Administration Budesonide/Formoterol Fumarate 2 puff 02/27/19 22:00 03/02/19 09:29 Symbicort 160/4.5mcg - IH 2 puff BID MANUEL Administration Calcium Carbonate 500 mg 02/27/19 22:00 03/02/19 09:24 Os-Cayden 500mg - PO 500 mg BID MANUEL Administration Clonazepam 2 mg 02/27/19 15:52 03/02/19 13:30 Klonopin - PO 2 mg TID PRN Administration ANXIETY Gabapentin 300 mg 02/27/19 22:00 03/02/19 09:23 Neurontin - PO 300 mg BID MANUEL Administration Heparin Sodium (Porcine) 5,000 unit 02/27/19 22:00 03/02/19 09:26 Heparin - SQ 5,000 unit BID [facility] Administration Azithromycin 500 mg in 250 mls @ 250 mls/hr 02/28/19 10:00 03/02/19 09:25 Zithromax 500mg Ivpb (Pre-Docked) IVPB 250 mls/hr DAILY [facility] Administration Sodium Chloride 1,000 mls @ 100 mls/hr 02/27/19 15:52 03/01/19 18:33 Normal Saline - IV Not Given ASDIR MANUEL Levothyroxine Sodium 50 mcg 02/28/19 07:00 03/02/19 06:17 Synthroid - PO 50 mcg DAILY@0700 [facility] Administration Methadone HCl 80 mg/ Methadone 90 mg 02/28/19 06:00 03/02/19 05:56 HCl 10 mg PO 90 mg 0600 [facility] Administration Metronidazole 250 mg 02/28/19 14:45 03/02/19 13:30 Flagyl - PO 250 mg TID MANUEL Administration Risperidone 2 mg 02/28/19 10:00 03/02/19 09:25 Risperdal - PO 2 mg DAILY [facility] Administration Sertraline HCl 25 mg 02/28/19 10:00 03/02/19 09:23 Zoloft - PO 25 mg DAILY [facility] Administration Zolpidem Tartrate 10 mg 02/27/19 15:52 Ambien - PO HS PRN INSOMNIA ASSESSMENT/PLAN: Problem List - Problems (1) Esophageal stricture Assessment/Plan: modified barium swallow 02/26/2019: delayed passage of pill into the thoracic esophagus, possible esophageal stricture. upper endoscopy recommended. patient for esophagram. Full Liquid diet Patient will need to follow up with Dr Candido Vila at [facility] as an outpatient Code(s): K22.2 - ESOPHAGEAL OBSTRUCTION (2) Pneumonia Assessment/Plan: chest xray with segmental left lower lobe pneumonia chest ct 02/28/19: moderate emphysema mainly upper lobes. ct suggest pneumonia/ pneumonitis. 4mm nodule in the left lung base, borderline mediastinal lymhadenopathy. on azithromycin monitor vitals, labs, airway aspiration precautions Code(s): J18.9 - PNEUMONIA, UNSPECIFIED ORGANISM Qualifiers: Pneumonia type: due to unspecified organism Laterality: left Lung location: lower lobe of lung Qualified Code(s): J18.9 - Pneumonia, unspecified organism (3) Headache Assessment/Plan: tylenol prn head ct negative Code(s): R51 - HEADACHE (4) Migraine Assessment/Plan: resolved Code(s): G43.909 - MIGRAINE, UNSP, NOT INTRACTABLE, WITHOUT STATUS MIGRAINOSUS (5) COPD (chronic obstructive pulmonary disease) Assessment/Plan: continue home inhalers not in acute exacerbation pulmonary following Code(s): J44.9 - CHRONIC OBSTRUCTIVE PULMONARY DISEASE, UNSPECIFIED (6) Hypothyroidism Assessment/Plan: continue synthroid Code(s): E03.9 - HYPOTHYROIDISM, UNSPECIFIED (7) Methadone maintenance therapy patient Assessment/Plan: on methadone 90 daily Code(s): F11.20 - OPIOID DEPENDENCE, UNCOMPLICATED (8) Laryngeal cancer Assessment/Plan: s/p chemo and rt 4 years ago. outpatient follow up (9) Requires aspiration precautions Assessment/Plan: aspiration precautions gi recommends full liquid diet hob elevated with meals Code(s): Z91.89 - OTH PERSONAL RISK FACTORS, NOT ELSEWHERE CLASSIFIED Visit type - Emergency Visit Emergency Visit: Yes ED Registration Date: 02/25/19 Care time: The patient presented to the Emergency Department on the above date and was hospitalized for further evaluation of their emergent condition. - New Patient This patient is new to me today: No - Critical Care Critical Care patient: No - Discharge Referral Referred to [facility] Med P.C.: No
--- NOTE | 2019-03-02 14:37 | PN ---
Progress Note, Physician History of Present Illness: pulmonary alert,comfortable,-resp distress,less cough - Current Medication List Current Medications: Active Medications Acetaminophen (Tylenol -) 650 mg PO Q6H PRN PRN Reason: FEVER Albuterol Sulfate (Ventolin 0.083% Nebulizer Soln -) 1 amp NEB Q4H PRN PRN Reason: SHORT OF BREATH/WHEEZING Last Admin: 03/02/19 11:20 Dose: 1 amp Atorvastatin Calcium (Lipitor -) 40 mg PO HS [facility] Last Admin: 03/01/19 21:08 Dose: 40 mg Budesonide/Formoterol Fumarate (Symbicort 160/4.5mcg -) 2 puff IH BID [facility] Last Admin: 03/02/19 09:29 Dose: 2 puff Calcium Carbonate (Os-Cayden 500mg -) 500 mg PO BID [facility] Last Admin: 03/02/19 09:24 Dose: 500 mg Clonazepam (Klonopin -) 2 mg PO TID PRN PRN Reason: ANXIETY Last Admin: 03/02/19 13:30 Dose: 2 mg Gabapentin (Neurontin -) 300 mg PO BID [facility] Last Admin: 03/02/19 09:23 Dose: 300 mg Heparin Sodium (Porcine) (Heparin -) 5,000 unit SQ BID [facility] Last Admin: 03/02/19 09:26 Dose: 5,000 unit Azithromycin (Zithromax 500mg Ivpb (Pre-Docked)) 500 mg in 250 mls @ 250 mls/ hr IVPB DAILY [facility] Last Admin: 03/02/19 09:25 Dose: 250 mls/hr Sodium Chloride (Normal Saline -) 1,000 mls @ 100 mls/hr IV ASDIR [facility] Last Admin: 03/01/19 18:33 Dose: Not Given Levothyroxine Sodium (Synthroid -) 50 mcg PO DAILY@0700 [facility] Last Admin: 03/02/19 06:17 Dose: 50 mcg Methadone HCl 80 mg/ Methadone (HCl 10 mg) 90 mg PO 0600 [facility] Last Admin: 03/02/19 05:56 Dose: 90 mg Metronidazole (Flagyl -) 250 mg PO TID [facility] Last Admin: 03/02/19 13:30 Dose: 250 mg Risperidone (Risperdal -) 2 mg PO DAILY [facility] Last Admin: 03/02/19 09:25 Dose: 2 mg Sertraline HCl (Zoloft -) 25 mg PO DAILY [facility] Last Admin: 03/02/19 09:23 Dose: 25 mg Zolpidem Tartrate (Ambien -) 10 mg PO HS PRN PRN Reason: INSOMNIA - Objective Vital Signs: Vital Signs Temperature 98.5 F 03/02/19 06:00 Pulse Rate 72 03/02/19 06:00 Respiratory Rate 20 03/02/19 06:00 Blood Pressure 90/59 L 03/02/19 06:00 O2 Sat by Pulse Oximetry (%) 96 03/01/19 20:41 Constitutional: Yes: Well Nourished, Calm Eyes: Yes: WNL HENT: Yes: WNL Neck: Yes: WNL Cardiovascular: Yes: Regular Rate and Rhythm, S1, S2 Respiratory: Yes: Rhonchi (few rhonchi) Gastrointestinal: Yes: Normal Bowel Sounds, Soft Extremities: Yes: WNL Edema: No Labs: CBC, BMP 03/02/19 07:45 03/02/19 07:45 INR, PTT INR 1.06 (0.83-1.09) 02/25/19 11:59 Laboratory Tests 03/01/19 14:10 Carboxyhemoglobin 1.5 Problem List - Problems (1) Pneumonia Code(s): J18.9 - PNEUMONIA, UNSPECIFIED ORGANISM Qualifiers: Pneumonia type: due to unspecified organism Laterality: left Lung location: lower lobe of lung Qualified Code(s): J18.9 - Pneumonia, unspecified organism (2) Asthma Code(s): J45.909 - UNSPECIFIED ASTHMA, UNCOMPLICATED (3) Chills Code(s): R68.83 - CHILLS (WITHOUT FEVER) (4) Headache Code(s): R51 - HEADACHE (5) COPD (chronic obstructive pulmonary disease) Code(s): J44.9 - CHRONIC OBSTRUCTIVE PULMONARY DISEASE, UNSPECIFIED (6) History of throat cancer Code(s): Z85.819 - PRSNL HX OF MALIG NEOPLM OF UNSP SITE LIP,ORAL CAV,& PHARYNX (7) Hyperlipidemia Code(s): E78.5 - HYPERLIPIDEMIA, UNSPECIFIED Qualifiers: Hyperlipidemia type: unspecified Qualified Code(s): E78.5 - Hyperlipidemia , unspecified (8) Hypothyroidism Code(s): E03.9 - HYPOTHYROIDISM, UNSPECIFIED (9) Acute on chronic respiratory failure with hypoxia and hypercapnia Code(s): J96.21 - ACUTE AND CHRONIC RESPIRATORY FAILURE WITH HYPOXIA; J96.22 - ACUTE AND CHRONIC RESPIRATORY FAILURE WITH HYPERCAPNIA Assessment/Plan IMP ACUTE ON CHRONIC HYPOXIC/HYPERCAPNEIC RESPIRATORY FAILURE improved PNEUMONIA ? ASPIRATION clinically improved COPD O2 DEPENDENT WITH ACUTE EXACERBATION H/O LARYNGEAL CA S/P RT/CHEMO H/O SUBSTANCE ABUSE H/O PNEUMONIA H/O TOBACCO ABUSE ELEVATED CARBOXYHEMOGLOBIN LEVEL NORMAL PLAN O2 NEEDED INHALED BRONCHODILATORS DR ALEMAN Problem List - Problems (1) Pneumonia Code(s): J18.9 - PNEUMONIA, UNSPECIFIED ORGANISM Qualifiers: Pneumonia type: due to unspecified organism Laterality: left Lung location: lower lobe of lung Qualified Code(s): J18.9 - Pneumonia, unspecified organism (2) Asthma Code(s): J45.909 - UNSPECIFIED ASTHMA, UNCOMPLICATED (3) Chills Code(s): R68.83 - CHILLS (WITHOUT FEVER) (4) Headache Code(s): R51 - HEADACHE (5) COPD (chronic obstructive pulmonary disease) Code(s): J44.9 - CHRONIC OBSTRUCTIVE PULMONARY DISEASE, UNSPECIFIED (6) History of throat cancer Code(s): Z85.819 - PRSNL HX OF MALIG NEOPLM OF UNSP SITE LIP,ORAL CAV,& PHARYNX (7) Hyperlipidemia Code(s): E78.5 - HYPERLIPIDEMIA, UNSPECIFIED Qualifiers: Hyperlipidemia type: unspecified Qualified Code(s): E78.5 - Hyperlipidemia , unspecified (8) Hypothyroidism Code(s): E03.9 - HYPOTHYROIDISM, UNSPECIFIED (9) Acute on chronic respiratory failure with hypoxia and hypercapnia Code(s): J96.21 - ACUTE AND CHRONIC RESPIRATORY FAILURE WITH HYPOXIA; J96.22 - ACUTE AND CHRONIC RESPIRATORY FAILURE WITH HYPERCAPNIA
[2019-03-02 19:27] LABS: ALBUMIN 3.4 g/dl (3.4-5.0); BILIRUBIN,TOTAL 0.2 mg/dL (0.2-1); BLOOD UREA NITROGEN 12.9 mg/dL (7-18); CALCIUM 9.5 mg/dL (8.5-10.1); CREATININE 0.7 mg/dL (0.55-1.3); POTASSIUM 4.4 mmol/L (3.5-5.1); TOT PROT 7.7 g/dl (6.4-8.2)
[2019-03-02] MEDS: ATORVASTATIN CA 40 MG TABLET (FP) PO SCH (23:24)
[2019-03-02] MEDS: ZOLPIDEM TARTRATE 5 MG TABLET PO PRN (23:25)
[2019-03-02] MEDS: SODIUM CHLORIDE 1,000 ML IV SCH (23:36)
[2019-03-03] MEDS ORDERED: PT OWN MED DRAWER 7, Y5N ONE ×3 (05:37→21:42)
[2019-03-03] MEDS ORDERED: METHADONE HCL 40 MG DISPERSABLE TABLET ONE (05:37)
[2019-03-03] MEDS ORDERED: METHADONE HCL 10 MG TABLET ONE (05:38)
[2019-03-03] MEDS: METHADONE 80 MG, METHADONE 10 MG PO SCH (05:41)
[2019-03-03] MEDS: metroNIDAZOLE 250 MG TABLET PO SCH ×3 (05:43→22:39)
[2019-03-03] MEDS: LEVOTHYROXINE NA 50 MCG TABLET (FP) PO SCH (06:08)
[2019-03-03 08:16] LABS: BASO % 0.7 % (0-2.0); EOS % 2.2 % (0-4.5); HEMATOCRIT 33.9 % (32.4-45.2); LYMPH % 18.9 % (8-40); MCH 28.8 pg (25.7-33.7); MCHC 32.4 g/dl (32.0-36.0); MEAN CELL VOLUME 88.7 fl (80-96); MEAN PLT VOLUME 7.7 fl (7.5-11.1); NEUT % 70.2 % (42.8-82.8); PLATELET COUNT 344 K/MM3 (134-434); RBC 3.82 M/mm3 (3.60-5.2); RDW 13.4 % (11.6-15.6)
--- NOTE | 2019-03-03 08:24 | PN ---
Progress Note, Physician History of Present Illness: GI FOLLOW UP NOTE Patient examined and case discussed with Dr Diaz Patient continue to complain of dysphagia, states it is the same and has not improved. She complains of nausea after eating. Denies vomiting, abdominal pain, diarrhea, constipation, rectal bleeding, melena. She is pending Abd/ Pelvic CT scan and Barium Esophagram. - Current Medication List Current Medications: Active Medications Acetaminophen (Tylenol -) 650 mg PO Q6H PRN PRN Reason: FEVER Albuterol Sulfate (Ventolin 0.083% Nebulizer Soln -) 1 amp NEB Q4H PRN PRN Reason: SHORT OF BREATH/WHEEZING Last Admin: 03/02/19 20:00 Dose: 1 amp Atorvastatin Calcium (Lipitor -) 40 mg PO HS [facility] Last Admin: 03/02/19 23:24 Dose: 40 mg Budesonide/Formoterol Fumarate (Symbicort 160/4.5mcg -) 2 puff IH BID [facility] Last Admin: 03/02/19 23:25 Dose: 2 puff Calcium Carbonate (Os-Cayden 500mg -) 500 mg PO BID [facility] Last Admin: 03/02/19 23:24 Dose: 500 mg Clonazepam (Klonopin -) 2 mg PO TID PRN PRN Reason: ANXIETY Last Admin: 03/02/19 23:25 Dose: 2 mg Gabapentin (Neurontin -) 300 mg PO BID [facility] Last Admin: 03/02/19 23:24 Dose: 300 mg Heparin Sodium (Porcine) (Heparin -) 5,000 unit SQ BID [facility] Last Admin: 03/02/19 23:26 Dose: 5,000 unit Azithromycin (Zithromax 500mg Ivpb (Pre-Docked)) 500 mg in 250 mls @ 250 mls/ hr IVPB DAILY [facility] Last Admin: 03/02/19 09:25 Dose: 250 mls/hr Sodium Chloride (Normal Saline -) 1,000 mls @ 100 mls/hr IV ASDIR [facility] Last Admin: 03/02/19 23:36 Dose: Not Given Levothyroxine Sodium (Synthroid -) 50 mcg PO DAILY@0700 [facility] Last Admin: 03/03/19 06:08 Dose: 50 mcg Methadone HCl 80 mg/ Methadone (HCl 10 mg) 90 mg PO 0600 [facility] Last Admin: 03/03/19 05:41 Dose: 90 mg Metronidazole (Flagyl -) 250 mg PO TID [facility] Last Admin: 03/03/19 05:43 Dose: 250 mg Risperidone (Risperdal -) 2 mg PO DAILY [facility] Last Admin: 03/02/19 09:25 Dose: 2 mg Sertraline HCl (Zoloft -) 25 mg PO DAILY [facility] Last Admin: 03/02/19 09:23 Dose: 25 mg Zolpidem Tartrate (Ambien -) 10 mg PO HS PRN PRN Reason: INSOMNIA Last Admin: 03/02/19 23:25 Dose: 10 mg - Objective Vital Signs: Vital Signs Temperature 98.2 F 03/02/19 18:00 Pulse Rate 71 03/02/19 18:00 Respiratory Rate 20 03/02/19 18:00 Blood Pressure 113/69 03/02/19 18:00 O2 Sat by Pulse Oximetry (%) 93 L 03/02/19 09:00 Constitutional: Yes: No Distress, Calm Eyes: Yes: Conjunctiva Clear HENT: Yes: Atraumatic Cardiovascular: Yes: Regular Rate and Rhythm Respiratory: Yes: Regular, CTA Bilaterally Gastrointestinal: Yes: Normal Bowel Sounds, Soft, Tenderness (RUQ and RLQ) Neurological: Yes: Alert, Oriented Psychiatric: Yes: Alert, Oriented Labs: CBC, BMP 03/03/19 07:00 03/02/19 17:45 INR, PTT INR 1.06 (0.83-1.09) 02/25/19 11:59 Problem List - Problems (1) Esophageal stricture Assessment/Plan: >Full liquid diet >MBS results reviewed >pending Barium Esophagram >will need to follow up with Dr Candido Vila at [facility] as outpatient Code(s): K22.2 - ESOPHAGEAL OBSTRUCTION (2) RLQ abdominal pain Assessment/Plan: >pending Abd/Pelvic CT scan >Flagyl TID AC >low fiber, lactose free diet Code(s): R10.31 - RIGHT LOWER QUADRANT PAIN (3) Rectal bleeding Assessment/Plan: >Colonoscopy done on 01/10/19 >CEA 9.0 >oncology consult Code(s): K62.5 - HEMORRHAGE OF ANUS AND RECTUM
[2019-03-03] MEDS: clonazePAM 2 MG TABLET PO PRN ×3 (09:07→22:40)
[2019-03-03] MEDS: GABAPENTIN 300 MG CAPSULE PO SCH ×2 (09:08→22:40)
[2019-03-03] MEDS: SERTRALINE HCL 25 MG TABLET (FP) PO SCH (09:08)
[2019-03-03] MEDS: AZITHROMYCIN IVPB 500 MG/250 ML BAG IVPB SCH (09:08)
[2019-03-03] MEDS: CALCIUM (OYSTER SHELL) 500 MG TABLET (FP) PO SCH ×2 (09:08→22:39)
[2019-03-03] MEDS: HEPARIN NA (PORCINE) 5,000 UNITS/ML 1ML VIAL SQ SCH ×2 (09:08→22:41)
[2019-03-03] MEDS: risperiDONE 1 MG TABLET PO SCH (09:09)
[2019-03-03] MEDS: BUDESONIDE/FORMETEROL FUMARATE 160/4.5 mcg INHALER IH SCH ×2 (09:10→22:50)
--- NOTE | 2019-03-03 11:15 | PN ---
Progress Note, Physician History of Present Illness: stable no new issues - Current Medication List Current Medications: Active Medications Acetaminophen (Tylenol -) 650 mg PO Q6H PRN PRN Reason: FEVER Albuterol Sulfate (Ventolin 0.083% Nebulizer Soln -) 1 amp NEB Q4H PRN PRN Reason: SHORT OF BREATH/WHEEZING Last Admin: 03/02/19 20:00 Dose: 1 amp Atorvastatin Calcium (Lipitor -) 40 mg PO HS [facility] Last Admin: 03/02/19 23:24 Dose: 40 mg Budesonide/Formoterol Fumarate (Symbicort 160/4.5mcg -) 2 puff IH BID [facility] Last Admin: 03/03/19 09:10 Dose: 2 puff Calcium Carbonate (Os-Cayden 500mg -) 500 mg PO BID [facility] Last Admin: 03/03/19 09:08 Dose: 500 mg Clonazepam (Klonopin -) 2 mg PO TID PRN PRN Reason: ANXIETY Last Admin: 03/03/19 09:07 Dose: 2 mg Gabapentin (Neurontin -) 300 mg PO BID [facility] Last Admin: 03/03/19 09:08 Dose: 300 mg Heparin Sodium (Porcine) (Heparin -) 5,000 unit SQ BID [facility] Last Admin: 03/03/19 09:08 Dose: 5,000 unit Azithromycin (Zithromax 500mg Ivpb (Pre-Docked)) 500 mg in 250 mls @ 250 mls/ hr IVPB DAILY [facility] Last Admin: 03/03/19 09:08 Dose: 250 mls/hr Sodium Chloride (Normal Saline -) 1,000 mls @ 100 mls/hr IV ASDIR [facility] Last Admin: 03/02/19 23:36 Dose: Not Given Levothyroxine Sodium (Synthroid -) 50 mcg PO DAILY@0700 [facility] Last Admin: 03/03/19 06:08 Dose: 50 mcg Methadone HCl 80 mg/ Methadone (HCl 10 mg) 90 mg PO 0600 [facility] Last Admin: 03/03/19 05:41 Dose: 90 mg Metronidazole (Flagyl -) 250 mg PO TID [facility] Last Admin: 03/03/19 05:43 Dose: 250 mg Risperidone (Risperdal -) 2 mg PO DAILY [facility] Last Admin: 03/03/19 09:09 Dose: 2 mg Sertraline HCl (Zoloft -) 25 mg PO DAILY [facility] Last Admin: 03/03/19 09:08 Dose: 25 mg Zolpidem Tartrate (Ambien -) 10 mg PO HS PRN PRN Reason: INSOMNIA Last Admin: 03/02/19 23:25 Dose: 10 mg - Objective Vital Signs: Vital Signs Temperature 97.2 F L 03/03/19 05:00 Pulse Rate 65 03/03/19 05:00 Respiratory Rate 18 03/03/19 05:00 Blood Pressure 128/69 03/03/19 05:00 O2 Sat by Pulse Oximetry (%) 95 03/02/19 21:00 Constitutional: Yes: No Distress, Calm Cardiovascular: Yes: S1, S2 Respiratory: Yes: Regular, CTA Bilaterally Gastrointestinal: Yes: Normal Bowel Sounds, Soft Musculoskeletal: Yes: WNL Extremities: Yes: WNL Labs: CBC, BMP 03/03/19 07:00 03/02/19 17:45 INR, PTT INR 1.06 (0.83-1.09) 02/25/19 11:59 Assessment/Plan Problem List - Problem (1) Pneumonia Code(s): J18.9 - PNEUMONIA, UNSPECIFIED ORGANISM Qualifiers: Pneumonia type: due to unspecified organism Laterality: left Lung location: lower lobe of lung Qualified Code(s): J18.9 - Pneumonia, unspecified organism (2) Headache Code(s): R51 - HEADACHE (3) Migraine Code(s): G43.909 - MIGRAINE, UNSP, NOT INTRACTABLE, WITHOUT STATUS MIGRAINOSUS (4) COPD (chronic obstructive pulmonary disease) Code(s): J44.9 - CHRONIC OBSTRUCTIVE PULMONARY DISEASE, UNSPECIFIED (5) Hypothyroidism Code(s): E03.9 - HYPOTHYROIDISM, UNSPECIFIED (6) Methadone maintenance therapy patient Code(s): F11.20 - OPIOID DEPENDENCE, UNCOMPLICATED (7) History of esophageal cancer Code(s): Z85.01 - PERSONAL HISTORY OF MALIGNANT NEOPLASM OF ESOPHAGUS (8) Vertigo Code(s): R42 - DIZZINESS AND GIDDINESS plan continue current mgmt monitor
--- NOTE | 2019-03-03 12:41 | PN ---
Progress Note (short form) - Note Progress Note: PULMONARY Denies shortness of breath, cough. Asking to go home. Vital Signs Period Temp Pulse Resp BP Sys/Cornelius Pulse Ox Last 24 Hr 97.2 F-98.4 F 65-78 18-20 113-148/69-75 95 Gen: NAD at rest Heart: RRR Lung: scattered wheezes Abd: soft, nontender Ext: no edema CBC, BMP 03/03/19 07:00 03/02/19 17:45 Active Medications Acetaminophen (Tylenol -) 650 mg PO Q6H PRN PRN Reason: FEVER Albuterol Sulfate (Ventolin 0.083% Nebulizer Soln -) 1 amp NEB Q4H PRN PRN Reason: SHORT OF BREATH/WHEEZING Last Admin: 03/02/19 20:00 Dose: 1 amp Atorvastatin Calcium (Lipitor -) 40 mg PO HS [facility] Last Admin: 03/02/19 23:24 Dose: 40 mg Budesonide/Formoterol Fumarate (Symbicort 160/4.5mcg -) 2 puff IH BID [facility] Last Admin: 03/03/19 09:10 Dose: 2 puff Calcium Carbonate (Os-Cayden 500mg -) 500 mg PO BID [facility] Last Admin: 03/03/19 09:08 Dose: 500 mg Clonazepam (Klonopin -) 2 mg PO TID PRN PRN Reason: ANXIETY Last Admin: 03/03/19 09:07 Dose: 2 mg Gabapentin (Neurontin -) 300 mg PO BID [facility] Last Admin: 03/03/19 09:08 Dose: 300 mg Heparin Sodium (Porcine) (Heparin -) 5,000 unit SQ BID [facility] Last Admin: 03/03/19 09:08 Dose: 5,000 unit Azithromycin (Zithromax 500mg Ivpb (Pre-Docked)) 500 mg in 250 mls @ 250 mls/ hr IVPB DAILY [facility] Last Admin: 03/03/19 09:08 Dose: 250 mls/hr Sodium Chloride (Normal Saline -) 1,000 mls @ 100 mls/hr IV ASDIR [facility] Last Admin: 03/02/19 23:36 Dose: Not Given Levothyroxine Sodium (Synthroid -) 50 mcg PO DAILY@0700 [facility] Last Admin: 03/03/19 06:08 Dose: 50 mcg Methadone HCl 80 mg/ Methadone (HCl 10 mg) 90 mg PO 0600 [facility] Last Admin: 03/03/19 05:41 Dose: 90 mg Metronidazole (Flagyl -) 250 mg PO TID [facility] Last Admin: 03/03/19 05:43 Dose: 250 mg Risperidone (Risperdal -) 2 mg PO DAILY [facility] Last Admin: 03/03/19 09:09 Dose: 2 mg Sertraline HCl (Zoloft -) 25 mg PO DAILY [facility] Last Admin: 03/03/19 09:08 Dose: 25 mg Zolpidem Tartrate (Ambien -) 10 mg PO HS PRN PRN Reason: INSOMNIA Last Admin: 03/02/19 23:25 Dose: 10 mg A/P Acute on Chronic Hypoxic and Hypercapneic Respiratory Failure improving Acute COPD Exacerbation Pneumonia h/o Laryngeal Ca Hypothyroidism Hyperlipidemia - complete antibiotics - inhaled bronchodilators - O2 to keep spO2 >90% - DVT prophylaxis - can d/c home from pulmonary standpoint
--- NOTE | 2019-03-03 13:00 | PN ---
Progress Note, [employer]ANT - Note Progress Note: Selected Entries 02/27/19 02/27/19 02/27/19 02:00 06:00 10:00 Breakfast Supper Temperature 97.9 F 97.8 F 97.8 F 02/27/19 02/27/19 02/27/19 16:12 18:00 22:00 Breakfast Supper 100% Temperature 98.3 F 98.7 F 98.2 F 02/28/19 10:00 Breakfast 100% Supper Temperature 98.0 F Laboratory Tests 02/28/19 07:50 WBC 8.3 Selected Entries 03/02/19 03/02/19 03/02/19 06:00 09:00 10:00 Breakfast Lunch Temperature 98.5 F 97.9 F 98.5 F 03/02/19 03/02/19 03/02/19 12:04 15:29 18:00 Breakfast 100% Lunch 100% Temperature 98.4 F 98.2 F 03/02/19 03/03/19 21:00 05:00 Breakfast Lunch Temperature 98.4 F 97.2 F L Laboratory Tests 02/28/19 03/01/19 03/02/19 07:50 06:28 07:45 WBC 8.3 11.6 H 10.3 H 03/03/19 07:00 WBC 12.0 H Appreciate GI consult- plan- >Full Liquid diet /nectar thick liquids. >Barium Esophogram >will need to follow up with Dr Candido Vila at [facility] as an outpatient diet order- full liquids. Pt seen eating Ritz crackers,Denies difficulty.
[2019-03-03] MEDS: ALBUTEROL SO4 2.5/IPRATROPIUM 0.5 INH SOL 3 ML VIAL.NEB. NEB SCH ×2 (16:04→20:53)
--- NOTE | 2019-03-03 16:35 | PN ---
Physical Exam: SUBJECTIVE: Patient seen and examined at the bedside. 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 Patient presents to the ED with c/o dizziness, intermittent headaches for apx 2 months. She also reports worsening wet cough and congestion despite her home inhalers. During hospital stay she c/o of right sided abdominal pain and is pending abd CT. Further a barium swallow showed possible esophageal stricture and an upper endocospcy recommended. Patient is pending both CT abd and esophagram prior to discharge. She has a geriatric social work professor in the community that coordinates all her follow up appointments: Linda Shah [phone]. fax [phone]. imaging: -chest ct 02/26/19: (1) moderate centrilobar pneumonia mainly upper lobes, interstitial thickening and fine nodulairty of the left uper lobe and right mid lobe, findings suggestive of pneumonia/pneumonitis, infections vs inflammatory. (2) 4mm pulmonary nodule in the left lung base, non specific. -modified barium swallow 02/26/2019: delayed passage of pill into the thoracic esophagus, possible esophageal stricture. upper endoscopy recommended. -chest ct 02/28/19: moderate emphysema mainly upper lobes. ct suggest pneumonia /pneumonitis. 4mmg nodule in the left lung base, borderline mediastinal lymhadenopathy. Vital Signs Period Temp Pulse Resp BP Sys/Cornelius Pulse Ox Last 24 Hr 97.2 F-98.4 F 65-71 18-20 113-133/68-75 95 GENERAL: The patient is awake, alert, and fully oriented, in no acute distress. HEAD: Normal with no signs of trauma. EYES: PERRL, extraocular movements intact, sclera anicteric, conjunctiva clear. No ptosis. ENT: Ears normal, nares patent, oropharynx clear without exudates, moist mucous membranes. NECK: Trachea midline, full range of motion, supple. LUNGS: clear to auscultation bilaterally, congestion of lungs have resolved HEART: Regular rate and rhythm, S1, S2 without murmur, rub or gallop. ABDOMEN: Soft, nontender, mildly distended, normoactive bowel sounds, bm today - pending ct scan EXTREMITIES: no edema. NEUROLOGICAL: Normal speech, gait not observed. PSYCH: Normal mood, normal affect. SKIN: Warm, dry, normal turgor, no rashes or lesions noted Laboratory Results - last 24 hr 03/02/19 03/02/19 03/03/19 17:07 17:45 05:46 WBC RBC Hgb Hct MCV MCH MCHC RDW Plt Count MPV Absolute Neuts (auto) Neutrophils % Lymphocytes % Monocytes % Eosinophils % Basophils % Nucleated RBC % Sodium 135 L Potassium 4.4 Chloride 95 L Carbon Dioxide 34 H Anion Gap 7 L BUN 12.9 Creatinine 0.7 Est GFR (CKD-EPI)AfAm 115.45 Est GFR (CKD-EPI)NonAf 99.62 POC Glucometer 89 88 Random Glucose 77 Calcium 9.5 Magnesium Total Bilirubin 0.2 AST 28 ALT 39 Alkaline Phosphatase 145 H Total Protein 7.7 Albumin 3.4 03/03/19 03/03/19 07:00 07:00 WBC 12.0 H RBC 3.82 Hgb 11.0 Hct 33.9 MCV 88.7 MCH 28.8 MCHC 32.4 RDW 13.4 Plt Count 344 MPV 7.7 Absolute Neuts (auto) 8.4 H Neutrophils % 70.2 Lymphocytes % 18.9 Monocytes % 8.0 Eosinophils % 2.2 Basophils % 0.7 Nucleated RBC % 0 Sodium Potassium Chloride Carbon Dioxide Anion Gap BUN Creatinine Est GFR (CKD-EPI)AfAm Est GFR (CKD-EPI)NonAf POC Glucometer Random Glucose Calcium Magnesium 1.9 Total Bilirubin AST ALT Alkaline Phosphatase Total Protein Albumin Active Medications Generic Name Dose Route Start Last Admin Trade Name Freq PRN Reason Stop Dose Admin Acetaminophen 650 mg 02/27/19 15:52 Tylenol - PO Q6H PRN FEVER Albuterol Sulfate 1 amp 03/01/19 12:55 03/02/19 20:00 Ventolin 0.083% Nebulizer Soln - NEB 1 amp Q4H PRN Administration SHORT OF BREATH/WHEEZING Albuterol/Ipratropium 1 amp 03/03/19 16:00 03/03/19 16:04 Duoneb - NEB 1 amp RQID MANUEL Administration Atorvastatin Calcium 40 mg 02/27/19 22:00 03/02/19 23:24 Lipitor - PO 40 mg HS MANUEL Administration Budesonide/Formoterol Fumarate 2 puff 02/27/19 22:00 03/03/19 09:10 Symbicort 160/4.5mcg - IH 2 puff BID MANUEL Administration Calcium Carbonate 500 mg 02/27/19 22:00 03/03/19 09:08 Os-Cayden 500mg - PO 500 mg BID MANUEL Administration Clonazepam 2 mg 02/27/19 15:52 03/03/19 09:07 Klonopin - PO 2 mg TID PRN Administration ANXIETY Gabapentin 300 mg 02/27/19 22:00 03/03/19 09:08 Neurontin - PO 300 mg BID MANUEL Administration Heparin Sodium (Porcine) 5,000 unit 02/27/19 22:00 03/03/19 09:08 Heparin - SQ 5,000 unit BID MANUEL Administration Azithromycin 500 mg in 250 mls @ 250 mls/hr 02/28/19 10:00 03/03/19 09:08 Zithromax 500mg Ivpb (Pre-Docked) IVPB 250 mls/hr DAILY MANUEL Administration Sodium Chloride 1,000 mls @ 100 mls/hr 02/27/19 15:52 03/02/19 23:36 Normal Saline - IV Not Given ASDIR MANUEL Levothyroxine Sodium 50 mcg 02/28/19 07:00 03/03/19 06:08 Synthroid - PO 50 mcg DAILY@0700 MANUEL Administration Methadone HCl 80 mg/ Methadone 90 mg 02/28/19 06:00 03/03/19 05:41 HCl 10 mg PO 90 mg 0600 MANUEL Administration Metronidazole 250 mg 02/28/19 14:45 03/03/19 14:45 Flagyl - PO 250 mg TID MANUEL Administration Risperidone 2 mg 02/28/19 10:00 03/03/19 09:09 Risperdal - PO 2 mg DAILY MANUEL Administration Sertraline HCl 25 mg 02/28/19 10:00 03/03/19 09:08 Zoloft - PO 25 mg DAILY MANUEL Administration Zolpidem Tartrate 10 mg 02/27/19 15:52 03/02/19 23:25 Ambien - PO 10 mg HS PRN Administration INSOMNIA ASSESSMENT/PLAN: Problem List - Problems (1) Esophageal stricture Assessment/Plan: modified barium swallow 02/26/2019: delayed passage of pill into the thoracic esophagus, possible esophageal stricture. upper endoscopy recommended. patient for esophagram. Full Liquid diet Patient will need to follow up with Dr Candido Vila at [facility] as an outpatient Code(s): K22.2 - ESOPHAGEAL OBSTRUCTION (2) Pneumonia Assessment/Plan: chest xray with segmental left lower lobe pneumonia chest ct 02/28/19: moderate emphysema mainly upper lobes. ct suggest pneumonia/ pneumonitis. 4mm nodule in the left lung base, borderline mediastinal lymhadenopathy. on azithromycin monitor vitals, labs, airway aspiration precautions Code(s): J18.9 - PNEUMONIA, UNSPECIFIED ORGANISM Qualifiers: Pneumonia type: due to unspecified organism Laterality: left Lung location: lower lobe of lung Qualified Code(s): J18.9 - Pneumonia, unspecified organism (3) Headache Assessment/Plan: tylenol prn head ct negative Code(s): R51 - HEADACHE (4) Migraine Assessment/Plan: resolved Code(s): G43.909 - MIGRAINE, UNSP, NOT INTRACTABLE, WITHOUT STATUS MIGRAINOSUS (5) COPD (chronic obstructive pulmonary disease) Assessment/Plan: continue home inhalers not in acute exacerbation pulmonary following Code(s): J44.9 - CHRONIC OBSTRUCTIVE PULMONARY DISEASE, UNSPECIFIED (6) Hypothyroidism Assessment/Plan: continue synthroid Code(s): E03.9 - HYPOTHYROIDISM, UNSPECIFIED (7) Methadone maintenance therapy patient Assessment/Plan: on methadone 90 daily Code(s): F11.20 - OPIOID DEPENDENCE, UNCOMPLICATED (8) Laryngeal cancer Assessment/Plan: s/p chemo and rt 4 years ago. outpatient follow up (9) Requires aspiration precautions Assessment/Plan: aspiration precautions gi recommends full liquid diet hob elevated with meals Code(s): Z91.89 - OTH PERSONAL RISK FACTORS, NOT ELSEWHERE CLASSIFIED Visit type - Emergency Visit Emergency Visit: Yes ED Registration Date: 02/25/19 Care time: The patient presented to the Emergency Department on the above date and was hospitalized for further evaluation of their emergent condition. - New Patient This patient is new to me today: No - Critical Care Critical Care patient: No - Discharge Referral Referred to [facility] No
[2019-03-03] MEDS: SODIUM CHLORIDE 1,000 ML IV SCH (16:51)
--- NOTE | 2019-03-03 20:41 | CONSULT ---
Consult - text type - Consultation Consultation Note: Patient is a a 53 y/o female with past medical history of Laryngeal Cancer ( last Chemo and RT 4 yrs ago), ex IVDU, Hypothyroidism, Asthma. Patient had EGD done 03/2015 which showed stricture in upper esophagus. She has been complaining of dysphagia with solids since Chemo and RT. She complains of RLQ pain radiating to right flank. She is complaining of constipation and intermittent episodes of rectal bleeding for a few months. Colonoscopy done showed 5mm hyperplastic polyp in sigmoid colon, internal hemorrhoids. Patient says she has lost 10lbs in a couple of months. We have been consulted for elevated CEA - History Source History Provided By: Patient Limitations to Obtaining History: No Limitations - Past Medical History Cardio/Vascular: Yes: HTN, Hyperlipdemia Pulmonary: Yes: Asthma ...LMP: 12/26/11 Psych: Yes: Addictions, Anxiety - Alcohol/Substance Use Hx Alcohol Use: No History of Substance Use: reports: Cocaine - Smoking History Smoking history: Current every day smoker - Allergies Allergies/Adverse Reactions: Allergies Allergy/AdvReac Type Severity Reaction Status Date / Time Penicillins Allergy Verified 02/25/19 10:04 - Home Medications Home Medications: Ambulatory Orders Zolpidem Tartrate [Ambien] 10 mg PO HS 10/14/11 Albuterol 0.083% Nebulizer Swapna [Ventolin 0.083% Nebulizer Soln -] 1 neb NEB QID 04/20/15 Atorvastatin Ca [Lipitor] 40 mg PO HS 04/20/15 Clonazepam 2 mg PO TID 04/20/15 Levothyroxine [Synthroid -] 50 mcg PO ACBK 01/03/18 Risperidone [Risperdal -] 2 mg PO DAILY 01/03/18 Guaifenesin 100 mg PO QID PRN #1 bottle 02/27/18 Albuterol Sulfate Inhaler - [Ventolin HFA Inhaler -] 2 inh PO QID PRN #1 inhaler 04/15/18 Methadone [Dolophine -] 90 mg PO DAILY@0600 06/04/18 Budesonide/Formeterol Fumarate [SYMBICORT 160/4.5mcg -] 2 puff IH BID 11/08/18 Gabapentin 300 mg PO BID 11/08/18 Sertraline HCl [Zoloft] 25 tab PO DAILY 11/08/18 hydrOXYzine PAMOATE [Vistaril -] 50 mg PO BID 11/12/18 Last Vital Signs Temp Pulse Resp BP Pulse Ox 97.8 F 75 20 113/69 92 L 03/04/19 06:00 03/04/19 06:00 03/04/19 06:00 03/04/19 06:00 03/03/19 21:00 Cor: RSR, No murmurs, No gallops Lungs: Clear to P&A Abd: Soft, Normal bowel sounds, No organomegaly Ext:No significant edema Labs/Meds reviewed A/P Patient is a a 53 y/o female with past medical history of Laryngeal Cancer ( last Chemo and RT 4 yrs ago), ex IVDU, Hypothyroidism, Asthma. She has been complaining of dysphagia with solids since Chemo and RT. EGD shows stricture. She complains of RLQ pain radiating to right flank. She is complaining of constipation and intermittent episodes of rectal bleeding for a few months. Colonoscopy done 01/10/19 showed 5mm hyperplastic polyp in sigmoid colon, internal hemorrhoids. Patient says she has lost 10lbs in a couple of months. We have been consulted for elevated CEA. Colonoscopy 01/09--hyperplastic polyp Supect due to smoking CT a/p pending CT chest -- emphysema, nonspecific LLL nodule, bordeline mediastinal adenopathy, interstitial thickening and nodularity -- RML/lingula/botth lower loves ? pneumoia Will need f/u CEA monotoing and imaging and GI w/u based on clinical course. Explained to patienr
[2019-03-03] MEDS: ATORVASTATIN CA 40 MG TABLET (FP) PO SCH (22:40)
[2019-03-04] MEDS ORDERED: METHADONE HCL 10 MG TABLET ONE (06:30)
[2019-03-04] MEDS ORDERED: METHADONE HCL 40 MG DISPERSABLE TABLET ONE (06:30)
[2019-03-04] MEDS ORDERED: PT OWN MED DRAWER 7, Y5N ONE ×2 (06:31→11:19)
[2019-03-04] MEDS: METHADONE 80 MG, METHADONE 10 MG PO SCH (06:36)
[2019-03-04] MEDS: LEVOTHYROXINE NA 50 MCG TABLET (FP) PO SCH (07:00)
[2019-03-04] MEDS: metroNIDAZOLE 250 MG TABLET PO SCH ×3 (07:00→21:30)
--- NOTE | 2019-03-04 07:57 | PN ---
Progress Note, Physician History of Present Illness: Patient is a 53 year old female with a significant past medical history of laryngeal cancer (s/p RT and chemo - last chemo 4 years ago) ex-IVDU on methadone (90mg), hypothyroidism, asthma (on 2L home O2). Patient presents to the ED with c/o dizziness, intermittent headaches for apx 2 months. She also reports worsening cough and congestion despite her home inhalers. During hospital stay she c/o of right sided abdominal pain and is pending abd CT. Further a barium swallow showed possible esophageal stricture and an upper endocospcy recommended. Patient is pending both CT abd and esophagram prior to discharge. She has a social insurance analyst in the community that coordinates all her follow up appointments: Linda Shah [phone]. fax [phone]. - Current Medication List Current Medications: Active Medications Acetaminophen (Tylenol -) 650 mg PO Q6H PRN PRN Reason: FEVER Albuterol Sulfate (Ventolin 0.083% Nebulizer Soln -) 1 amp NEB Q4H PRN PRN Reason: SHORT OF BREATH/WHEEZING Last Admin: 03/02/19 20:00 Dose: 1 amp Albuterol/Ipratropium (Duoneb -) 1 amp NEB RQID MANUEL Last Admin: 03/03/19 20:53 Dose: 1 amp Atorvastatin Calcium (Lipitor -) 40 mg PO HS [facility] Last Admin: 03/03/19 22:40 Dose: 40 mg Budesonide/Formoterol Fumarate (Symbicort 160/4.5mcg -) 2 puff IH BID [facility] Last Admin: 03/03/19 22:50 Dose: 2 puff Calcium Carbonate (Os-Cayden 500mg -) 500 mg PO BID [facility] Last Admin: 03/03/19 22:39 Dose: 500 mg Clonazepam (Klonopin -) 2 mg PO TID PRN PRN Reason: ANXIETY Last Admin: 03/03/19 22:40 Dose: 2 mg Gabapentin (Neurontin -) 300 mg PO BID [facility] Last Admin: 03/03/19 22:40 Dose: 300 mg Heparin Sodium (Porcine) (Heparin -) 5,000 unit SQ BID MANUEL Last Admin: 03/03/19 22:41 Dose: 5,000 unit Azithromycin (Zithromax 500mg Ivpb (Pre-Docked)) 500 mg in 250 mls @ 250 mls/ hr IVPB DAILY [facility] Last Admin: 03/03/19 09:08 Dose: 250 mls/hr Sodium Chloride (Normal Saline -) 1,000 mls @ 100 mls/hr IV ASDIR [facility] Last Admin: 03/03/19 16:51 Dose: 100 mls/hr Levothyroxine Sodium (Synthroid -) 50 mcg PO DAILY@0700 [facility] Last Admin: 03/03/19 06:08 Dose: 50 mcg Methadone HCl 80 mg/ Methadone (HCl 10 mg) 90 mg PO 0600 [facility] Last Admin: 03/04/19 06:36 Dose: 90 mg Metronidazole (Flagyl -) 250 mg PO TID [facility] Last Admin: 03/03/19 22:39 Dose: 250 mg Risperidone (Risperdal -) 2 mg PO DAILY [facility] Last Admin: 03/03/19 09:09 Dose: 2 mg Sertraline HCl (Zoloft -) 25 mg PO DAILY [facility] Last Admin: 03/03/19 09:08 Dose: 25 mg Zolpidem Tartrate (Ambien -) 10 mg PO HS PRN PRN Reason: INSOMNIA Last Admin: 03/02/19 23:25 Dose: 10 mg - Objective Vital Signs: Vital Signs Temperature 97.8 F 03/04/19 06:00 Pulse Rate 75 03/04/19 06:00 Respiratory Rate 20 03/04/19 06:00 Blood Pressure 113/69 03/04/19 06:00 O2 Sat by Pulse Oximetry (%) 92 L 03/03/19 21:00 Labs: CBC, BMP 03/03/19 07:00 03/02/19 17:45 INR, PTT INR 1.06 (0.83-1.09) 02/25/19 11:59 - ....Imaging Cat Scan: Report Reviewed (chest ct 02/26/19: (1) moderate centrilobar pneumonia mainly upper lobes, interstitial thickening and fine nodulairty of the left uper lobe and right mid lobe, findings suggestive of pneumonia/ pneumonitis, infections vs inflammatory. (2) 4mm pulmonary nodule in the left lung base, non specific. -chest ct 02/28/19: moderate emphysema mainly upper lobes. ct suggest pneumonia/pneumonitis. 4mmg nodule in the left lung base, borderline mediastinal lymhadenopathy.) Other: Other (-modified barium swallow 02/26/2019: delayed passage of pill into the thoracic esophagus, possible esophageal stricture. upper endoscopy recommended.) Problem List - Problems (1) Prophylactic measure Code(s): Z29.9 - ENCOUNTER FOR PROPHYLACTIC MEASURES, UNSPECIFIED (2) Acute on chronic respiratory failure with hypoxia and hypercapnia Code(s): J96.21 - ACUTE AND CHRONIC RESPIRATORY FAILURE WITH HYPOXIA; J96.22 - ACUTE AND CHRONIC RESPIRATORY FAILURE WITH HYPERCAPNIA (3) Esophageal stricture Assessment/Plan: modified barium swallow 02/26/2019: delayed passage of pill into the thoracic esophagus, possible esophageal stricture. upper endoscopy recommended. patient for esophagram. Full Liquid diet Patient will need to follow up with Dr Candido Vila at [facility] as an outpatient Code(s): K22.2 - ESOPHAGEAL OBSTRUCTION (5) Pneumonia Assessment/Plan: chest xray with segmental left lower lobe pneumonia chest ct 02/28/19: moderate emphysema mainly upper lobes. ct suggest pneumonia/ pneumonitis. 4mm nodule in the left lung base, borderline mediastinal lymhadenopathy. on azithromycin monitor vitals, labs, airway aspiration precautions Code(s): J18.9 - PNEUMONIA, UNSPECIFIED ORGANISM (6) Requires aspiration precautions Code(s): Z91.89 - OTH PERSONAL RISK FACTORS, NOT ELSEWHERE CLASSIFIED (7) Headache Assessment/Plan: tylenol prn head ct negative Code(s): R51 - HEADACHE (8) Migraine Code(s): G43.909 - MIGRAINE, UNSP, NOT INTRACTABLE, WITHOUT STATUS MIGRAINOSUS (9) COPD (chronic obstructive pulmonary disease) Assessment/Plan: continue home inhalers not in acute exacerbation pulmonary following Code(s): J44.9 - CHRONIC OBSTRUCTIVE PULMONARY DISEASE, UNSPECIFIED (10) Hyperlipidemia Code(s): E78.5 - HYPERLIPIDEMIA, UNSPECIFIED Qualifiers: Hyperlipidemia type: unspecified Qualified Code(s): E78.5 - Hyperlipidemia , unspecified (11) Hypothyroidism Code(s): E03.9 - HYPOTHYROIDISM, UNSPECIFIED (12) Methadone maintenance therapy patient Assessment/Plan: on methadone 90 daily Code(s): F11.20 - OPIOID DEPENDENCE, UNCOMPLICATED
[2019-03-04] MEDS: ALBUTEROL SO4 2.5/IPRATROPIUM 0.5 INH SOL 3 ML VIAL.NEB. NEB SCH ×3 (08:00→20:00)
[2019-03-04 08:56] LABS: BASO % 0.7 % (0-2.0); EOS % 1.8 % (0-4.5); HEMATOCRIT 36.3 % (32.4-45.2); HEMOGLOBIN 11.8 GM/dL (10.7-15.3); LYMPH % 18.3 % (8-40); MCH 29.3 pg (25.7-33.7); MCHC 32.5 g/dl (32.0-36.0); MEAN PLT VOLUME 7.5 fl (7.5-11.1); MONO % 6.7 % (3.8-10.2); NEUT % 72.5 % (42.8-82.8); PLATELET COUNT 398 K/MM3 (134-434); RBC 4.03 M/mm3 (3.60-5.2); RDW 13.6 % (11.6-15.6)
[2019-03-04 09:04] LABS: INR 1.04 (0.83-1.09); PROTHROMBIN TIME (PATIENT) 12.3 SEC (9.7-13.0)
[2019-03-04 09:28] LABS: ALBUMIN 3.4 g/dl (3.4-5.0); BILIRUBIN,TOTAL 0.3 mg/dL (0.2-1); BLOOD UREA NITROGEN 14.5 mg/dL (7-18); CALCIUM 9.8 mg/dL (8.5-10.1); CREATININE 0.7 mg/dL (0.55-1.3); MAGNESIUM 2.2 mg/dL (1.8-2.4); POTASSIUM 5.1 mmol/L (3.5-5.1); TOT PROT 7.6 g/dl (6.4-8.2)
[2019-03-04] MEDS: HEPARIN NA (PORCINE) 5,000 UNITS/ML 1ML VIAL SQ SCH ×2 (10:02→21:29)
[2019-03-04] MEDS: AZITHROMYCIN IVPB 500 MG/250 ML BAG IVPB SCH (10:07)
[2019-03-04 10:40] LABS: ANISOCYTOSIS 1+; MACROCYTOSIS 0; PLATELET ESTIMATE NORMAL
[2019-03-04] MEDS: CALCIUM (OYSTER SHELL) 500 MG TABLET (FP) PO SCH ×2 (11:13→21:29)
[2019-03-04] MEDS: SERTRALINE HCL 25 MG TABLET (FP) PO SCH (11:13)
[2019-03-04] MEDS: GABAPENTIN 300 MG CAPSULE PO SCH ×2 (11:13→21:29)
[2019-03-04] MEDS: BUDESONIDE/FORMETEROL FUMARATE 160/4.5 mcg INHALER IH SCH ×2 (11:15→21:34)
[2019-03-04] MEDS: risperiDONE 1 MG TABLET PO SCH (11:21)
[2019-03-04] MEDS: clonazePAM 2 MG TABLET PO PRN ×2 (11:31→21:29)
--- NOTE | 2019-03-04 11:32 | PN ---
Progress Note (short form) - Note Progress Note: PULMONARY Denies shortness of breath, cough. Vital Signs Period Temp Pulse Resp BP Sys/Cornelius Pulse Ox Last 24 Hr 97.8 F-98.3 F 68-75 20-20 97-127/65-69 92 Gen: NAD at rest Heart: RRR Lung: scattered wheezes Abd: soft, nontender Ext: no edema CBC, BMP 03/04/19 08:20 03/04/19 08:20 Active Medications Acetaminophen (Tylenol -) 650 mg PO Q6H PRN PRN Reason: FEVER Albuterol Sulfate (Ventolin 0.083% Nebulizer Soln -) 1 amp NEB Q4H PRN PRN Reason: SHORT OF BREATH/WHEEZING Last Admin: 03/02/19 20:00 Dose: 1 amp Albuterol/Ipratropium (Duoneb -) 1 amp NEB RQID [facility] Last Admin: 03/04/19 08:00 Dose: 1 amp Atorvastatin Calcium (Lipitor -) 40 mg PO HS [facility] Last Admin: 03/03/19 22:40 Dose: 40 mg Budesonide/Formoterol Fumarate (Symbicort 160/4.5mcg -) 2 puff IH BID [facility] Last Admin: 03/04/19 11:15 Dose: 2 puff Calcium Carbonate (Os-Cayden 500mg -) 500 mg PO BID [facility] Last Admin: 03/04/19 11:13 Dose: 500 mg Clonazepam (Klonopin -) 2 mg PO TID PRN PRN Reason: ANXIETY Last Admin: 03/04/19 11:31 Dose: 2 mg Gabapentin (Neurontin -) 300 mg PO BID [facility] Last Admin: 03/04/19 11:13 Dose: 300 mg Heparin Sodium (Porcine) (Heparin -) 5,000 unit SQ BID [facility] Last Admin: 03/04/19 10:02 Dose: Not Given Azithromycin (Zithromax 500mg Ivpb (Pre-Docked)) 500 mg in 250 mls @ 250 mls/ hr IVPB DAILY [facility] Last Admin: 03/04/19 10:07 Dose: 250 mls/hr Sodium Chloride (Normal Saline -) 1,000 mls @ 100 mls/hr IV ASDIR [facility] Last Admin: 03/03/19 16:51 Dose: 100 mls/hr Levothyroxine Sodium (Synthroid -) 50 mcg PO DAILY@0700 [facility] Last Admin: 03/03/19 06:08 Dose: 50 mcg Methadone HCl 80 mg/ Methadone (HCl 10 mg) 90 mg PO 0600 [facility] Last Admin: 03/04/19 06:36 Dose: 90 mg Metronidazole (Flagyl -) 250 mg PO TID [facility] Last Admin: 03/03/19 22:39 Dose: 250 mg Risperidone (Risperdal -) 2 mg PO DAILY [facility] Last Admin: 03/04/19 11:21 Dose: 2 mg Sertraline HCl (Zoloft -) 25 mg PO DAILY [facility] Last Admin: 03/04/19 11:13 Dose: 25 mg Zolpidem Tartrate (Ambien -) 10 mg PO HS PRN PRN Reason: INSOMNIA Last Admin: 03/02/19 23:25 Dose: 10 mg A/P Acute on Chronic Hypoxic and Hypercapneic Respiratory Failure improving Acute COPD Exacerbation Pneumonia h/o Laryngeal Ca Hypothyroidism Hyperlipidemia - complete antibiotics - inhaled bronchodilators - O2 to keep spO2 >90% - DVT prophylaxis - can d/c home from pulmonary standpoint
--- NOTE | 2019-03-04 12:09 | PN ---
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
--- NOTE | 2019-03-04 13:18 | PN ---
Progress Note, Physician History of Present Illness: Pt is alert. Denies SOB. Remains afebrile. No cough noted. - Current Medication List Current Medications: Active Medications Acetaminophen (Tylenol -) 650 mg PO Q6H PRN PRN Reason: FEVER Albuterol Sulfate (Ventolin 0.083% Nebulizer Soln -) 1 amp NEB Q4H PRN PRN Reason: SHORT OF BREATH/WHEEZING Last Admin: 03/02/19 20:00 Dose: 1 amp Albuterol/Ipratropium (Duoneb -) 1 amp NEB RQID [facility] Last Admin: 03/04/19 12:00 Dose: 1 amp Atorvastatin Calcium (Lipitor -) 40 mg PO HS [facility] Last Admin: 03/03/19 22:40 Dose: 40 mg Budesonide/Formoterol Fumarate (Symbicort 160/4.5mcg -) 2 puff IH BID [facility] Last Admin: 03/04/19 11:15 Dose: 2 puff Calcium Carbonate (Os-Cayden 500mg -) 500 mg PO BID [facility] Last Admin: 03/04/19 11:13 Dose: 500 mg Clonazepam (Klonopin -) 2 mg PO TID PRN PRN Reason: ANXIETY Last Admin: 03/04/19 11:31 Dose: 2 mg Gabapentin (Neurontin -) 300 mg PO BID [facility] Last Admin: 03/04/19 11:13 Dose: 300 mg Heparin Sodium (Porcine) (Heparin -) 5,000 unit SQ BID [facility] Last Admin: 03/04/19 10:02 Dose: Not Given Sodium Chloride (Normal Saline -) 1,000 mls @ 100 mls/hr IV ASDIR [facility] Last Admin: 03/03/19 16:51 Dose: 100 mls/hr Levothyroxine Sodium (Synthroid -) 50 mcg PO DAILY@0700 [facility] Last Admin: 03/03/19 06:08 Dose: 50 mcg Methadone HCl 80 mg/ Methadone (HCl 10 mg) 90 mg PO 0600 [facility] Last Admin: 03/04/19 06:36 Dose: 90 mg Metronidazole (Flagyl -) 250 mg PO TID [facility] Last Admin: 03/03/19 22:39 Dose: 250 mg Risperidone (Risperdal -) 2 mg PO DAILY [facility] Last Admin: 03/04/19 11:21 Dose: 2 mg Sertraline HCl (Zoloft -) 25 mg PO DAILY [facility] Last Admin: 03/04/19 11:13 Dose: 25 mg Zolpidem Tartrate (Ambien -) 10 mg PO HS PRN PRN Reason: INSOMNIA Last Admin: 03/02/19 23:25 Dose: 10 mg - Objective Vital Signs: Vital Signs Temperature 97.8 F 03/04/19 06:00 Pulse Rate 75 03/04/19 06:00 Respiratory Rate 20 03/04/19 06:00 Blood Pressure 113/69 03/04/19 06:00 O2 Sat by Pulse Oximetry (%) 92 L 03/03/19 21:00 Constitutional: Yes: No Distress, Calm Cardiovascular: Yes: Regular Rate and Rhythm Respiratory: Yes: CTA Bilaterally Gastrointestinal: Yes: Normal Bowel Sounds, Soft Genitourinary: Yes: WNL Extremities: Yes: WNL Integumentary: Yes: WNL Neurological: Yes: Alert, Oriented Labs: CBC, BMP 03/04/19 08:20 03/04/19 08:20 INR, PTT INR 1.04 (0.83-1.09) 03/04/19 08:20 - ....Imaging Chest X-ray: Report Reviewed Problem List - Problems (1) Esophageal stricture Code(s): K22.2 - ESOPHAGEAL OBSTRUCTION (3) Pneumonia Code(s): J18.9 - PNEUMONIA, UNSPECIFIED ORGANISM Qualifiers: Pneumonia type: due to unspecified organism Laterality: left Lung location: lower lobe of lung Qualified Code(s): J18.9 - Pneumonia, unspecified organism (4) Requires aspiration precautions Code(s): Z91.89 - OTH PERSONAL RISK FACTORS, NOT ELSEWHERE CLASSIFIED (5) COPD (chronic obstructive pulmonary disease) Code(s): J44.9 - CHRONIC OBSTRUCTIVE PULMONARY DISEASE, UNSPECIFIED (6) Hyperlipidemia Code(s): E78.5 - HYPERLIPIDEMIA, UNSPECIFIED Qualifiers: Hyperlipidemia type: unspecified Qualified Code(s): E78.5 - Hyperlipidemia , unspecified (7) Hypothyroidism Code(s): E03.9 - HYPOTHYROIDISM, UNSPECIFIED Assessment/Plan PNA COPD Possible SI bowel overgrowth Hx of Laryngeal CA Esophageal stricture Dysphagia Aspiration Risk -- Pt without SOB/cough, fever resolved -- Awaiting esophagram -- july d/c Azithromycin, s/p Ceftriaxone IV, start Augmentin PO x 2 days (may crush) -- continue Flagyl PO , tolerating -- Heme/Onc, GI followup
--- NOTE | 2019-03-04 14:56 | PN ---
Progress Note, Physician Chief Complaint: awaiting esophogram. States she is hungry History of Present Illness: Patient is a 53 year old female with a significant past medical history of laryngeal cancer (s/p RT and chemo - last chemo 4 years ago) ex-IVDU on methadone (90mg), hypothyroidism, asthma (on 2L home O2). Patient presents to the ED with c/o dizziness, intermittent headaches for apx 2 months. She also reports worsening wet cough and congestion despite her home inhalers. During hospital stay she c/o of right sided abdominal pain and is pending abd CT. Further a barium swallow showed possible esophageal stricture and an upper endocospcy recommended. Patient is pending both CT abd and esophagram prior to discharge. She has a social science instructor in the community that coordinates all her follow up appointments: Linda Shah [phone]. fax [phone]. - Current Medication List Current Medications: Active Medications Acetaminophen (Tylenol -) 650 mg PO Q6H PRN PRN Reason: FEVER Albuterol Sulfate (Ventolin 0.083% Nebulizer Soln -) 1 amp NEB Q4H PRN PRN Reason: SHORT OF BREATH/WHEEZING Last Admin: 03/02/19 20:00 Dose: 1 amp Albuterol/Ipratropium (Duoneb -) 1 amp NEB RQID [facility] Last Admin: 03/04/19 12:00 Dose: 1 amp Atorvastatin Calcium (Lipitor -) 40 mg PO HS [facility] Last Admin: 03/03/19 22:40 Dose: 40 mg Budesonide/Formoterol Fumarate (Symbicort 160/4.5mcg -) 2 puff IH BID [facility] Last Admin: 03/04/19 11:15 Dose: 2 puff Calcium Carbonate (Os-Cayden 500mg -) 500 mg PO BID [facility] Last Admin: 03/04/19 11:13 Dose: 500 mg Clonazepam (Klonopin -) 2 mg PO TID PRN PRN Reason: ANXIETY Last Admin: 03/04/19 11:31 Dose: 2 mg Gabapentin (Neurontin -) 300 mg PO BID [facility] Last Admin: 03/04/19 11:13 Dose: 300 mg Heparin Sodium (Porcine) (Heparin -) 5,000 unit SQ BID [facility] Last Admin: 03/04/19 10:02 Dose: Not Given Sodium Chloride (Normal Saline -) 1,000 mls @ 100 mls/hr IV ASDIR [facility] Last Admin: 03/03/19 16:51 Dose: 100 mls/hr Levothyroxine Sodium (Synthroid -) 50 mcg PO DAILY@0700 [facility] Last Admin: 03/03/19 06:08 Dose: 50 mcg Methadone HCl 80 mg/ Methadone (HCl 10 mg) 90 mg PO 0600 [facility] Last Admin: 03/04/19 06:36 Dose: 90 mg Metronidazole (Flagyl -) 250 mg PO TID [facility] Last Admin: 03/04/19 07:00 Dose: Not Given Risperidone (Risperdal -) 2 mg PO DAILY [facility] Last Admin: 03/04/19 11:21 Dose: 2 mg Sertraline HCl (Zoloft -) 25 mg PO DAILY [facility] Last Admin: 03/04/19 11:13 Dose: 25 mg Zolpidem Tartrate (Ambien -) 10 mg PO HS PRN PRN Reason: INSOMNIA Last Admin: 03/02/19 23:25 Dose: 10 mg - Objective Vital Signs: Vital Signs Temperature 97.8 F 03/04/19 06:00 Pulse Rate 75 03/04/19 06:00 Respiratory Rate 20 03/04/19 06:00 Blood Pressure 113/69 03/04/19 06:00 O2 Sat by Pulse Oximetry (%) 92 L 03/03/19 21:00 Labs: CBC, BMP 03/04/19 08:20 03/04/19 08:20 INR, PTT INR 1.04 (0.83-1.09) 03/04/19 08:20 - ....Imaging Cat Scan: Report Reviewed (-chest ct 02/26/19: (1) moderate centrilobar pneumonia mainly upper lobes, interstitial thickening and fine nodulairty of the left uper lobe and right mid lobe, findings suggestive of pneumonia/ pneumonitis, infections vs inflammatory. (2) 4mm pulmonary nodule in the left lung base, non specific. -modified barium swallow 02/26/2019: delayed passage of pill into the thoracic esophagus, possible esophageal stricture. upper endoscopy recommended. -chest ct 02/28/19: moderate emphysema mainly upper lobes. ct suggest pneumonia/pneumonitis. 4mmg nodule in the left lung base, borderline mediastinal lymhadenopathy.) Other: Pending (Esophogram) Problem List - Problems (1) Prophylactic measure Assessment/Plan: FEN NPO pending esophogram monitor electrolytes IVF DVT heparin sq Diispo maintain as inpatient full code discharge planning to home with services Code(s): Z29.9 - ENCOUNTER FOR PROPHYLACTIC MEASURES, UNSPECIFIED (2) Acute on chronic respiratory failure with hypoxia and hypercapnia Assessment/Plan: completed abx, monitor off inhaled bronchodilators supplemental O2 as needed Code(s): J96.21 - ACUTE AND CHRONIC RESPIRATORY FAILURE WITH HYPOXIA; J96.22 - ACUTE AND CHRONIC RESPIRATORY FAILURE WITH HYPERCAPNIA (3) Esophageal stricture Assessment/Plan: esophogram pending full liquid diet after Code(s): K22.2 - ESOPHAGEAL OBSTRUCTION (5) Pneumonia Assessment/Plan: inhaled bronchdilators supplemental O2 pulmonary following Code(s): J18.9 - PNEUMONIA, UNSPECIFIED ORGANISM (6) Requires aspiration precautions Assessment/Plan: pin attacher Seda appiah apprecaite recs Code(s): Z91.89 - OTH PERSONAL RISK FACTORS, NOT ELSEWHERE CLASSIFIED (7) Headache Assessment/Plan: resolved tylenol prn Code(s): R51 - HEADACHE (8) Migraine Assessment/Plan: resolved Code(s): G43.909 - MIGRAINE, UNSP, NOT INTRACTABLE, WITHOUT STATUS MIGRAINOSUS (9) COPD (chronic obstructive pulmonary disease) Assessment/Plan: c./w symbicort & duo nebs Code(s): J44.9 - CHRONIC OBSTRUCTIVE PULMONARY DISEASE, UNSPECIFIED (10) Hyperlipidemia Assessment/Plan: c/w atrovastatin Code(s): E78.5 - HYPERLIPIDEMIA, UNSPECIFIED Qualifiers: Hyperlipidemia type: unspecified Qualified Code(s): E78.5 - Hyperlipidemia , unspecified (11) Hypothyroidism Assessment/Plan: c/w synthroid Code(s): E03.9 - HYPOTHYROIDISM, UNSPECIFIED (12) Methadone maintenance therapy patient Assessment/Plan: maintenance dose 80mg daily Code(s): F11.20 - OPIOID DEPENDENCE, UNCOMPLICATED (13) Anxiety disorder Assessment/Plan: c/w respiradol, klonopin, zoloft Code(s): F41.9 - ANXIETY DISORDER, UNSPECIFIED Qualifiers: Anxiety disorder type: generalized anxiety disorder Qualified Code(s): F41.1 - Generalized anxiety disorder Visit type - Emergency Visit Emergency Visit: Yes ED Registration Date: 02/25/19 Care time: The patient presented to the Emergency Department on the above date and was hospitalized for further evaluation of their emergent condition. - New Patient This patient is new to me today: Yes Date on this admission: 03/04/19 - Critical Care Critical Care patient: No - Discharge Referral Referred to [facility] No
--- NOTE | 2019-03-04 16:44 | PN ---
Progress Note (short form) - Note Progress Note: Patient seen and examined Dizziness on presentation - improved Pneumonia- under therapy Esophageal stricture - for follow up GI Last Vital Signs Temp Pulse Resp BP Pulse Ox 97.7 F 79 20 106/55 L 92 L 03/04/19 15:20 03/04/19 15:20 03/04/19 15:20 03/04/19 15:20 03/03/19 21:00 HEENT: GREER, EOM Intact Oropharynx: No thrush, No mucositis Neck: Supple Nodes: Without adenopathy Breasts: Without masses Cor: RSR, No murmurs, No gallops Lungs: Clear to P&A Abd: Soft, Normal bowel sounds, No organomegaly, RUQ scar Ext:No significant edema Skin: No rashes, Integument intact, clubbing changes CBC, BMP 03/04/19 08:20 03/04/19 08:20 Current Medications Generic Name Dose Route Start Last Admin Trade Name Freq PRN Reason Stop Dose Admin Acetaminophen 650 mg 02/27/19 15:52 Tylenol - PO Q6H PRN FEVER Albuterol Sulfate 1 amp 03/01/19 12:55 03/02/19 20:00 Ventolin 0.083% Nebulizer Soln - NEB 1 amp Q4H PRN Administration SHORT OF BREATH/WHEEZING Albuterol/Ipratropium 1 amp 03/03/19 16:00 03/04/19 12:00 Duoneb - NEB 1 amp RQID [facility] Administration Atorvastatin Calcium 40 mg 02/27/19 22:00 03/03/19 22:40 Lipitor - PO 40 mg HS [facility] Administration Budesonide/Formoterol Fumarate 2 puff 02/27/19 22:00 03/04/19 11:15 Symbicort 160/4.5mcg - IH 2 puff BID [facility] Administration Calcium Carbonate 500 mg 02/27/19 22:00 03/04/19 11:13 Os-Cayden 500mg - PO 500 mg BID [facility] Administration Clonazepam 2 mg 02/27/19 15:52 03/04/19 11:31 Klonopin - PO 2 mg TID PRN Administration ANXIETY Gabapentin 300 mg 02/27/19 22:00 03/04/19 11:13 Neurontin - PO 300 mg BID [facility] Administration Heparin Sodium (Porcine) 5,000 unit 02/27/19 22:00 03/04/19 10:02 Heparin - SQ Not Given BID [facility] Sodium Chloride 1,000 mls @ 100 mls/hr 02/27/19 15:52 03/03/19 16:51 Normal Saline - IV 100 mls/hr ASDIR [facility] Administration Levothyroxine Sodium 50 mcg 02/28/19 07:00 03/03/19 06:08 Synthroid - PO 50 mcg DAILY@0700 [facility] Administration Methadone HCl 80 mg/ Methadone 90 mg 02/28/19 06:00 03/04/19 06:36 HCl 10 mg PO 90 mg 0600 [facility] Administration Metronidazole 250 mg 02/28/19 14:45 03/04/19 15:07 Flagyl - PO Not Given TID [facility] Risperidone 2 mg 02/28/19 10:00 03/04/19 11:21 Risperdal - PO 2 mg DAILY [facility] Administration Sertraline HCl 25 mg 02/28/19 10:00 03/04/19 11:13 Zoloft - PO 25 mg DAILY [facility] Administration Zolpidem Tartrate 10 mg 02/27/19 15:52 03/02/19 23:25 Ambien - PO 10 mg HS PRN Administration INSOMNIA Impression: Hx of Head and Neck Ca - s/p treatment Pneumonia COPD Elevated CEA Smoking ---> 1/2 to 1 PPd HPL Lung Nodule - needs monitoring. Suggest : CEA may be secondary to smoking history. Consider total body CT scan , outpatient PET and GI evaluation to further assess elevated CEA.
[2019-03-04] MEDS: ATORVASTATIN CA 40 MG TABLET (FP) PO SCH (21:29)
[2019-03-04] MEDS: ZOLPIDEM TARTRATE 5 MG TABLET PO PRN (21:29)
[2019-03-04] MEDS: SODIUM CHLORIDE 1,000 ML IV SCH (21:34)
[2019-03-05] MEDS ORDERED: METHADONE HCL 40 MG DISPERSABLE TABLET ONE ×2 (06:00→10:07)
[2019-03-05] MEDS ORDERED: METHADONE HCL 10 MG TABLET ONE ×2 (06:01→10:08)
[2019-03-05] MEDS: metroNIDAZOLE 250 MG TABLET PO SCH ×3 (06:20→21:54)
[2019-03-05] MEDS: METHADONE 80 MG, METHADONE 10 MG PO SCH ×2 (06:20→10:15)
[2019-03-05] MEDS: LEVOTHYROXINE NA 50 MCG TABLET (FP) PO SCH (06:20)
--- NOTE | 2019-03-05 07:34 | PN ---
Progress Note, Physician Chief Complaint: Awaiting esophogram/EGD. NPO. Wants to go home History of Present Illness: Patient is a 53 year old female with a significant past medical history of laryngeal cancer (s/p RT and chemo - last chemo 4 years ago) ex-IVDU on methadone (90mg), hypothyroidism, asthma (on 2L home O2). Patient presents to the ED with c/o dizziness, intermittent headaches for apx 2 months. She also reports worsening wet cough and congestion despite her home inhalers. During hospital stay she c/o of right sided abdominal pain and is pending abd CT. Further a barium swallow showed possible esophageal stricture and an upper endocospcy recommended. Patient is pending both CT abd and esophagram prior to discharge. She has a social and political studies professor in the community that coordinates all her follow up appointments: Linda Shah [phone]. fax [phone]. - Current Medication List Current Medications: Active Medications Acetaminophen (Tylenol -) 650 mg PO Q6H PRN PRN Reason: FEVER Albuterol Sulfate (Ventolin 0.083% Nebulizer Soln -) 1 amp NEB Q4H PRN PRN Reason: SHORT OF BREATH/WHEEZING Last Admin: 03/02/19 20:00 Dose: 1 amp Albuterol/Ipratropium (Duoneb -) 1 amp NEB RQID [facility] Last Admin: 03/04/19 20:00 Dose: 1 amp Atorvastatin Calcium (Lipitor -) 40 mg PO HS [facility] Last Admin: 03/04/19 21:29 Dose: 40 mg Budesonide/Formoterol Fumarate (Symbicort 160/4.5mcg -) 2 puff IH BID [facility] Last Admin: 03/04/19 21:34 Dose: 2 puff Calcium Carbonate (Os-Cayden 500mg -) 500 mg PO BID [facility] Last Admin: 03/04/19 21:29 Dose: 500 mg Clonazepam (Klonopin -) 2 mg PO TID PRN PRN Reason: ANXIETY Last Admin: 03/04/19 21:29 Dose: 2 mg Gabapentin (Neurontin -) 300 mg PO BID [facility] Last Admin: 03/04/19 21:29 Dose: 300 mg Heparin Sodium (Porcine) (Heparin -) 5,000 unit SQ BID [facility] Last Admin: 03/04/19 21:29 Dose: 5,000 unit Sodium Chloride (Normal Saline -) 1,000 mls @ 100 mls/hr IV ASDIR [facility] Last Admin: 03/04/19 21:34 Dose: 100 mls/hr Levothyroxine Sodium (Synthroid -) 50 mcg PO DAILY@0700 [facility] Last Admin: 03/05/19 06:20 Dose: Not Given Methadone HCl 80 mg/ Methadone (HCl 10 mg) 90 mg PO 0600 [facility] Last Admin: 03/05/19 06:20 Dose: Not Given Metronidazole (Flagyl -) 250 mg PO TID [facility] Last Admin: 03/05/19 06:20 Dose: Not Given Risperidone (Risperdal -) 2 mg PO DAILY [facility] Last Admin: 03/04/19 11:21 Dose: 2 mg Sertraline HCl (Zoloft -) 25 mg PO DAILY [facility] Last Admin: 03/04/19 11:13 Dose: 25 mg Zolpidem Tartrate (Ambien -) 10 mg PO HS PRN PRN Reason: INSOMNIA Last Admin: 03/04/19 21:29 Dose: 10 mg - Objective Vital Signs: Vital Signs Temperature 98.4 F 03/05/19 06:00 Pulse Rate 66 03/05/19 06:00 Respiratory Rate 18 03/05/19 06:00 Blood Pressure 117/65 03/05/19 06:00 O2 Sat by Pulse Oximetry (%) 97 03/04/19 21:00 Constitutional: Yes: Well Nourished, No Distress, Calm Eyes: Yes: WNL, Conjunctiva Clear HENT: Yes: WNL, Atraumatic, Normocephalic Neck: Yes: WNL, Supple, Trachea Midline Cardiovascular: Yes: WNL, Regular Rate and Rhythm Respiratory: Yes: WNL, Regular, CTA Bilaterally Gastrointestinal: Yes: WNL, Normal Bowel Sounds, Soft ...Rectal Exam: Yes: Deferred Genitourinary: Yes: WNL Breast(s): Yes: WNL Musculoskeletal: Yes: WNL Extremities: Yes: WNL Edema: No Peripheral Pulses WNL: Yes Peripheral Pulses: Left Radial: 2+, Right Radial: 2+, Left Doralis Pedis: 2+, Right Dorsalis Pedis: 2+, Left Femoral: 2+, Right Femoral: 2+ Integumentary: Yes: WNL Neurological: Yes: WNL, Alert, Oriented ...Motor Strength: WNL Psychiatric: Yes: WNL Labs: CBC, BMP 03/04/19 08:20 INR, PTT INR 1.04 (0.83-1.09) 03/04/19 08:20 - ....Imaging Cat Scan: Other (chest ct 02/26/19: (1) moderate centrilobar pneumonia mainly upper lobes, interstitial thickening and fine nodulairty of the left uper lobe and right mid lobe, findings suggestive of pneumonia/pneumonitis, infections vs inflammatory. (2) 4mm pulmonary nodule in the left lung base, non specific. - modified barium swallow 02/26/2019: delayed passage of pill into the thoracic esophagus, possible esophageal stricture. upper endoscopy recommended. -chest ct 02/28/19: moderate emphysema mainly upper lobes. ct suggest pneumonia/ pneumonitis. 4mmg nodule in the left lung base, borderline mediastinal lymhadenopathy) Other: Other Problem List - Problems (1) Prophylactic measure Assessment/Plan: FEN Resumed full liquid diet monitor electrolytes IVF DVT heparin sq Diispo maintain as inpatient full code discharge planning to home with services Code(s): Z29.9 - ENCOUNTER FOR PROPHYLACTIC MEASURES, UNSPECIFIED (2) Acute on chronic respiratory failure with hypoxia and hypercapnia Assessment/Plan: completed abx, monitor off inhaled bronchodilators supplemental O2 as needed Code(s): J96.21 - ACUTE AND CHRONIC RESPIRATORY FAILURE WITH HYPOXIA; J96.22 - ACUTE AND CHRONIC RESPIRATORY FAILURE WITH HYPERCAPNIA (3) Esophageal stricture Assessment/Plan: Barium retained still in colon. Given mag citrate, esophogram/EGD still pending resume full liquid diet & NPO after mn Code(s): K22.2 - ESOPHAGEAL OBSTRUCTION (5) Pneumonia Assessment/Plan: inhaled bronchdilators supplemental O2 pulmonary following Code(s): J18.9 - PNEUMONIA, UNSPECIFIED ORGANISM (6) Requires aspiration precautions Assessment/Plan: SHANTHI appiah appreciate recs Code(s): Z91.89 - OTH PERSONAL RISK FACTORS, NOT ELSEWHERE CLASSIFIED (7) Headache Assessment/Plan: resolved tylenol prn Code(s): R51 - HEADACHE (8) Migraine Assessment/Plan: resolved Code(s): G43.909 - MIGRAINE, UNSP, NOT INTRACTABLE, WITHOUT STATUS MIGRAINOSUS (9) COPD (chronic obstructive pulmonary disease) Assessment/Plan: c./w symbicort & duo nebs Code(s): J44.9 - CHRONIC OBSTRUCTIVE PULMONARY DISEASE, UNSPECIFIED (10) Hyperlipidemia Assessment/Plan: c/w atrovastatin Code(s): E78.5 - HYPERLIPIDEMIA, UNSPECIFIED Qualifiers: Hyperlipidemia type: unspecified Qualified Code(s): E78.5 - Hyperlipidemia , unspecified (11) Hypothyroidism Assessment/Plan: c/w synthroid Code(s): E03.9 - HYPOTHYROIDISM, UNSPECIFIED (12) Methadone maintenance therapy patient Assessment/Plan: maintenance dose 80mg daily Code(s): F11.20 - OPIOID DEPENDENCE, UNCOMPLICATED (13) Anxiety disorder Assessment/Plan: c/w respiradol, klonopin, zoloft Code(s): F41.9 - ANXIETY DISORDER, UNSPECIFIED Qualifiers: Anxiety disorder type: generalized anxiety disorder Qualified Code(s): F41.1 - Generalized anxiety disorder Visit type - Emergency Visit Emergency Visit: Yes ED Registration Date: 02/25/19 Care time: The patient presented to the Emergency Department on the above date and was hospitalized for further evaluation of their emergent condition. - New Patient This patient is new to me today: No - Critical Care Critical Care patient: No - Discharge Referral Referred to [facility] No
[2019-03-05 07:51] LABS: EOS % 2.3 % (0-4.5); HEMATOCRIT 35.5 % (32.4-45.2); HEMOGLOBIN 11.5 GM/dL (10.7-15.3); LYMPH % 23.3 % (8-40); MCH 29.2 pg (25.7-33.7); MCHC 32.6 g/dl (32.0-36.0); MEAN CELL VOLUME 89.6 fl (80-96); MEAN PLT VOLUME 7.5 fl (7.5-11.1); MONO % 7.4 % (3.8-10.2); PLATELET COUNT 392 K/MM3 (134-434); RBC 3.96 M/mm3 (3.60-5.2); RDW 13.7 % (11.6-15.6); WHITE BLOOD COUNT 12.2 K/mm3 (4.0-10.0)
[2019-03-05] MEDS ORDERED: MAGNESIUM CITRATE 300 ML BOTTLE PO ONE (09:21)
[2019-03-05] MEDS: ALBUTEROL SO4 2.5/IPRATROPIUM 0.5 INH SOL 3 ML VIAL.NEB. NEB SCH ×5 (09:38→20:31)
[2019-03-05] MEDS: SERTRALINE HCL 25 MG TABLET (FP) PO SCH (10:14)
[2019-03-05] MEDS: GABAPENTIN 300 MG CAPSULE PO SCH ×2 (10:14→21:54)
[2019-03-05] MEDS: CALCIUM (OYSTER SHELL) 500 MG TABLET (FP) PO SCH ×2 (10:14→21:54)
[2019-03-05] MEDS: HEPARIN NA (PORCINE) 5,000 UNITS/ML 1ML VIAL SQ SCH ×2 (10:29→21:45)
[2019-03-05] MEDS: BUDESONIDE/FORMETEROL FUMARATE 160/4.5 mcg INHALER IH SCH ×2 (10:30→21:56)
[2019-03-05] MEDS ORDERED: PT OWN MED DRAWER 7, Y5N ONE ×2 (10:42→21:53)
[2019-03-05] MEDS: risperiDONE 1 MG TABLET PO SCH (11:08)
[2019-03-05] MEDS: AMOX TR/POT CLAV 875MG/125MG TABLETS (FP) PO SCH ×2 (11:08→17:28)
--- NOTE | 2019-03-05 11:49 | PN ---
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 Abdominal u/s with Barium in colon. Pending esophagram for more comprehensive assessment of esophagus. On full fluids/ thin liquids ok Provide supplements for increased density of nutritional intake
[2019-03-05 12:03] LABS: ANISOCYTOSIS 0; MACROCYTOSIS 0; PLATELET ESTIMATE NORMAL
--- NOTE | 2019-03-05 13:10 | PN ---
Progress Note, Physician History of Present Illness: stable no new issues - Current Medication List Current Medications: Active Medications Acetaminophen (Tylenol -) 650 mg PO Q6H PRN PRN Reason: FEVER Albuterol Sulfate (Ventolin 0.083% Nebulizer Soln -) 1 amp NEB Q4H PRN PRN Reason: SHORT OF BREATH/WHEEZING Last Admin: 03/02/19 20:00 Dose: 1 amp Albuterol/Ipratropium (Duoneb -) 1 amp NEB RQID [facility] Last Admin: 03/04/19 20:00 Dose: 1 amp Amoxicillin/Clavulanate Potassium (Augmentin - 875mg Tablet) 1 tab PO BID@0800, 1730 [facility] Stop: 03/07/19 07:59 Last Admin: 03/05/19 11:08 Dose: 1 tab Atorvastatin Calcium (Lipitor -) 40 mg PO HS [facility] Last Admin: 03/04/19 21:29 Dose: 40 mg Budesonide/Formoterol Fumarate (Symbicort 160/4.5mcg -) 2 puff IH BID [facility] Last Admin: 03/05/19 10:30 Dose: 2 puff Calcium Carbonate (Os-Cayden 500mg -) 500 mg PO BID [facility] Last Admin: 03/05/19 10:14 Dose: 500 mg Clonazepam (Klonopin -) 2 mg PO TID PRN PRN Reason: ANXIETY Last Admin: 03/04/19 21:29 Dose: 2 mg Gabapentin (Neurontin -) 300 mg PO BID [facility] Last Admin: 03/05/19 10:14 Dose: 300 mg Heparin Sodium (Porcine) (Heparin -) 5,000 unit SQ BID [facility] Last Admin: 03/05/19 10:29 Dose: Not Given Sodium Chloride (Normal Saline -) 1,000 mls @ 100 mls/hr IV ASDIR [facility] Last Admin: 03/04/19 21:34 Dose: 100 mls/hr Levothyroxine Sodium (Synthroid -) 50 mcg PO DAILY@0700 [facility] Last Admin: 03/05/19 06:20 Dose: Not Given Methadone HCl 80 mg/ Methadone (HCl 10 mg) 90 mg PO 0600 [facility] Last Admin: 03/05/19 10:15 Dose: 90 mg Metronidazole (Flagyl -) 250 mg PO TID [facility] Last Admin: 03/05/19 06:20 Dose: Not Given Risperidone (Risperdal -) 2 mg PO DAILY [facility] Last Admin: 03/05/19 11:08 Dose: 2 mg Sertraline HCl (Zoloft -) 25 mg PO DAILY [facility] Last Admin: 03/05/19 10:14 Dose: 25 mg Zolpidem Tartrate (Ambien -) 10 mg PO HS PRN PRN Reason: INSOMNIA Last Admin: 03/04/19 21:29 Dose: 10 mg - Objective Vital Signs: Vital Signs Temperature 98 F 03/05/19 10:00 Pulse Rate 70 03/05/19 10:00 Respiratory Rate 18 03/05/19 10:00 Blood Pressure 112/61 03/05/19 10:00 O2 Sat by Pulse Oximetry (%) 96 03/05/19 09:00 Constitutional: Yes: No Distress, Calm Cardiovascular: Yes: S1, S2 Gastrointestinal: Yes: Normal Bowel Sounds, Soft Musculoskeletal: Yes: WNL Extremities: Yes: WNL Neurological: Yes: Alert Psychiatric: Yes: Alert Labs: CBC, BMP 03/05/19 06:55 03/04/19 08:20 INR, PTT INR 1.04 (0.83-1.09) 03/04/19 08:20 Assessment/Plan Problem List - Problem (1) Pneumonia Code(s): J18.9 - PNEUMONIA, UNSPECIFIED ORGANISM Qualifiers: Pneumonia type: due to unspecified organism Laterality: left Lung location: lower lobe of lung Qualified Code(s): J18.9 - Pneumonia, unspecified organism (2) Headache Code(s): R51 - HEADACHE (3) Migraine Code(s): G43.909 - MIGRAINE, UNSP, NOT INTRACTABLE, WITHOUT STATUS MIGRAINOSUS (4) COPD (chronic obstructive pulmonary disease) Code(s): J44.9 - CHRONIC OBSTRUCTIVE PULMONARY DISEASE, UNSPECIFIED (5) Hypothyroidism Code(s): E03.9 - HYPOTHYROIDISM, UNSPECIFIED (6) Methadone maintenance therapy patient Code(s): F11.20 - OPIOID DEPENDENCE, UNCOMPLICATED (7) History of esophageal cancer Code(s): Z85.01 - PERSONAL HISTORY OF MALIGNANT NEOPLASM OF ESOPHAGUS (8) Vertigo Code(s): R42 - DIZZINESS AND GIDDINESS plan continue current mgmt monitor
--- NOTE | 2019-03-05 14:04 | PN ---
Progress Note, Physician History of Present Illness: pulmonary alert,feeliing better,-resp distress - Current Medication List Current Medications: Active Medications Acetaminophen (Tylenol -) 650 mg PO Q6H PRN PRN Reason: FEVER Albuterol Sulfate (Ventolin 0.083% Nebulizer Soln -) 1 amp NEB Q4H PRN PRN Reason: SHORT OF BREATH/WHEEZING Last Admin: 03/02/19 20:00 Dose: 1 amp Albuterol/Ipratropium (Duoneb -) 1 amp NEB RQID [facility] Last Admin: 03/04/19 20:00 Dose: 1 amp Amoxicillin/Clavulanate Potassium (Augmentin - 875mg Tablet) 1 tab PO BID@0800, 1730 [facility] Stop: 03/07/19 07:59 Last Admin: 03/05/19 11:08 Dose: 1 tab Atorvastatin Calcium (Lipitor -) 40 mg PO HS [facility] Last Admin: 03/04/19 21:29 Dose: 40 mg Budesonide/Formoterol Fumarate (Symbicort 160/4.5mcg -) 2 puff IH BID [facility] Last Admin: 03/05/19 10:30 Dose: 2 puff Calcium Carbonate (Os-Cayden 500mg -) 500 mg PO BID [facility] Last Admin: 03/05/19 10:14 Dose: 500 mg Clonazepam (Klonopin -) 2 mg PO TID PRN PRN Reason: ANXIETY Last Admin: 03/04/19 21:29 Dose: 2 mg Gabapentin (Neurontin -) 300 mg PO BID [facility] Last Admin: 03/05/19 10:14 Dose: 300 mg Heparin Sodium (Porcine) (Heparin -) 5,000 unit SQ BID [facility] Last Admin: 03/05/19 10:29 Dose: Not Given Sodium Chloride (Normal Saline -) 1,000 mls @ 100 mls/hr IV ASDIR [facility] Last Admin: 03/04/19 21:34 Dose: 100 mls/hr Levothyroxine Sodium (Synthroid -) 50 mcg PO DAILY@0700 [facility] Last Admin: 03/05/19 06:20 Dose: Not Given Methadone HCl 80 mg/ Methadone (HCl 10 mg) 90 mg PO 0600 [facility] Last Admin: 03/05/19 10:15 Dose: 90 mg Metronidazole (Flagyl -) 250 mg PO TID [facility] Last Admin: 03/05/19 06:20 Dose: Not Given Risperidone (Risperdal -) 2 mg PO DAILY [facility] Last Admin: 03/05/19 11:08 Dose: 2 mg Sertraline HCl (Zoloft -) 25 mg PO DAILY [facility] Last Admin: 03/05/19 10:14 Dose: 25 mg Zolpidem Tartrate (Ambien -) 10 mg PO HS PRN PRN Reason: INSOMNIA Last Admin: 03/04/19 21:29 Dose: 10 mg - Objective Vital Signs: Vital Signs Temperature 98 F 03/05/19 10:00 Pulse Rate 70 03/05/19 10:00 Respiratory Rate 18 03/05/19 10:00 Blood Pressure 112/61 03/05/19 10:00 O2 Sat by Pulse Oximetry (%) 96 03/05/19 09:00 Constitutional: Yes: Well Nourished, Calm Eyes: Yes: WNL HENT: Yes: WNL Neck: Yes: WNL Cardiovascular: Yes: Regular Rate and Rhythm, S1, S2 Respiratory: Yes: Rhonchi (scattered rhonchi) Gastrointestinal: Yes: Normal Bowel Sounds, Soft Extremities: Yes: WNL Edema: Yes Labs: CBC, BMP 03/05/19 06:55 03/04/19 08:20 INR, PTT INR 1.04 (0.83-1.09) 03/04/19 08:20 Problem List - Problems (1) Pneumonia Code(s): J18.9 - PNEUMONIA, UNSPECIFIED ORGANISM Qualifiers: Pneumonia type: due to unspecified organism Laterality: left Lung location: lower lobe of lung Qualified Code(s): J18.9 - Pneumonia, unspecified organism (2) Asthma Code(s): J45.909 - UNSPECIFIED ASTHMA, UNCOMPLICATED (3) Chills Code(s): R68.83 - CHILLS (WITHOUT FEVER) (4) Headache Code(s): R51 - HEADACHE (5) COPD (chronic obstructive pulmonary disease) Code(s): J44.9 - CHRONIC OBSTRUCTIVE PULMONARY DISEASE, UNSPECIFIED (6) History of throat cancer Code(s): Z85.819 - PRSNL HX OF MALIG NEOPLM OF UNSP SITE LIP,ORAL CAV,& PHARYNX (7) Hyperlipidemia Code(s): E78.5 - HYPERLIPIDEMIA, UNSPECIFIED Qualifiers: Hyperlipidemia type: unspecified Qualified Code(s): E78.5 - Hyperlipidemia , unspecified (8) Hypothyroidism Code(s): E03.9 - HYPOTHYROIDISM, UNSPECIFIED (9) Acute on chronic respiratory failure with hypoxia and hypercapnia Code(s): J96.21 - ACUTE AND CHRONIC RESPIRATORY FAILURE WITH HYPOXIA; J96.22 - ACUTE AND CHRONIC RESPIRATORY FAILURE WITH HYPERCAPNIA Assessment/Plan IMP ACUTE ON CHRONIC HYPOXIC/HYPERCAPNEIC RESPIRATORY FAILURE improved PNEUMONIA ? ASPIRATION clinically improved COPD O2 DEPENDENT WITH ACUTE EXACERBATION H/O LARYNGEAL CA S/P RT/CHEMO H/O SUBSTANCE ABUSE H/O PNEUMONIA H/O TOBACCO ABUSE ELEVATED CARBOXYHEMOGLOBIN LEVEL NORMAL PLAN O2 NEEDED INHALED BRONCHODILATORS OUTPATIENT PFTS DR ALEMAN Problem List - Problems (1) Pneumonia Code(s): J18.9 - PNEUMONIA, UNSPECIFIED ORGANISM Qualifiers: Pneumonia type: due to unspecified organism Laterality: left Lung location: lower lobe of lung Qualified Code(s): J18.9 - Pneumonia, unspecified organism (2) Asthma Code(s): J45.909 - UNSPECIFIED ASTHMA, UNCOMPLICATED (3) Chills Code(s): R68.83 - CHILLS (WITHOUT FEVER) (4) Headache Code(s): R51 - HEADACHE (5) COPD (chronic obstructive pulmonary disease) Code(s): J44.9 - CHRONIC OBSTRUCTIVE PULMONARY DISEASE, UNSPECIFIED (6) History of throat cancer Code(s): Z85.819 - PRSNL HX OF MALIG NEOPLM OF UNSP SITE LIP,ORAL CAV,& PHARYNX (7) Hyperlipidemia Code(s): E78.5 - HYPERLIPIDEMIA, UNSPECIFIED Qualifiers: Hyperlipidemia type: unspecified Qualified Code(s): E78.5 - Hyperlipidemia , unspecified (8) Hypothyroidism Code(s): E03.9 - HYPOTHYROIDISM, UNSPECIFIED (9) Acute on chronic respiratory failure with hypoxia and hypercapnia Code(s): J96.21 - ACUTE AND CHRONIC RESPIRATORY FAILURE WITH HYPOXIA; J96.22 - ACUTE AND CHRONIC RESPIRATORY FAILURE WITH HYPERCAPNIA
[2019-03-05] MEDS: clonazePAM 2 MG TABLET PO PRN ×2 (17:28→22:05)
--- NOTE | 2019-03-05 19:23 | PN.GI ---
GI Progress Note Subjective: patient being treated pneumonia. She has history of of a tight esophageal stricture and is high risk for dehydration. She was arranged to see Dr Vila as an outpatient but never showed up. - Objective Vital Signs: Vital Signs Temperature 98.3 F 03/05/19 18:00 Pulse Rate 85 03/05/19 18:00 Respiratory Rate 20 03/05/19 18:00 Blood Pressure 99/60 03/05/19 18:00 O2 Sat by Pulse Oximetry (%) 96 03/05/19 09:00 Constitutional: No Distress Eyes: Yes: Conjunctiva Clear HENT: Yes: Atraumatic, Tonsillar Exudate Cardiovascular: Yes: Regular Rate and Rhythm Respiratory: Yes: CTA Bilaterally ...Palpate: Yes: Soft. No: Firm/Rigid, Guarding, Hepatomegaly, Mass, Pulsatile Mass, Splenomegaly, Tenderness Labs: CBC, BMP 03/05/19 06:55 03/04/19 08:20 INR, PTT INR 1.04 (0.83-1.09) 03/04/19 08:20 Problem List - Problems (1) RLQ abdominal pain Assessment/Plan: --resolved Code(s): R10.31 - RIGHT LOWER QUADRANT PAIN (2) Esophageal stricture Assessment/Plan: R> will arrange for transfer for further evaluation Code(s): K22.2 - ESOPHAGEAL OBSTRUCTION (3) Rectal bleeding Assessment/Plan: resolved Code(s): K62.5 - HEMORRHAGE OF ANUS AND RECTUM
[2019-03-05] MEDS ORDERED: BENZOCAINE/MENTH/CETYLPYRD CL 1 EACH LOZENGE MM PRN (20:21)
[2019-03-05] MEDS: SODIUM CHLORIDE 1,000 ML IV SCH ×2 (21:35→22:09)
[2019-03-05] MEDS: ATORVASTATIN CA 40 MG TABLET (FP) PO SCH (21:54)
[2019-03-05] MEDS: ZOLPIDEM TARTRATE 5 MG TABLET PO PRN (21:54)
[2019-03-06] MEDS ORDERED: METHADONE HCL 10 MG TABLET ONE (05:52)
[2019-03-06] MEDS ORDERED: METHADONE HCL 40 MG DISPERSABLE TABLET ONE (05:52)
[2019-03-06] MEDS: METHADONE 80 MG, METHADONE 10 MG PO SCH (06:07)
[2019-03-06] MEDS: LEVOTHYROXINE NA 50 MCG TABLET (FP) PO SCH (06:08)
[2019-03-06] MEDS: metroNIDAZOLE 250 MG TABLET PO SCH ×3 (06:08→21:17)
--- NOTE | 2019-03-06 07:55 | DS ---
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 Patient presents to the ED with c/o dizziness, intermittent headaches for apx 2 months. She also reports worsening wet cough and congestion despite her home inhalers. During hospital stay she c/o of right sided abdominal pain and is pending abd CT. Further a barium swallow showed possible esophageal stricture and an upper endocospcy recommended. Plan for transfer to [facility] for esopogram and esophageal stricture dilation OBJECTIVE: Vital Signs Period Temp Pulse Resp BP Sys/Cornelius Pulse Ox Last 24 Hr 97.7 F-98.3 F 70-85 18-20 97-129/46-78 95-96 PHYSICAL EXAM Constitutional: Yes: Well Nourished, No Distress, Calm Eyes: Yes: WNL, Conjunctiva Clear HENT: Yes: WNL, Atraumatic, Normocephalic Neck: Yes: WNL, Supple, Trachea Midline Cardiovascular: Yes: WNL, Regular Rate and Rhythm Respiratory: Yes: WNL, Regular, CTA Bilaterally Gastrointestinal: Yes: WNL, Normal Bowel Sounds, Soft ...Rectal Exam: Yes: Deferred Genitourinary: Yes: WNL Breast(s): Yes: WNL Musculoskeletal: Yes: WNL Extremities: Yes: WNL Edema: No Peripheral Pulses WNL: Yes Peripheral Pulses: Left Radial: 2+, Right Radial: 2+, Left Doralis Pedis: 2+, Right Dorsalis Pedis: 2+, Left Femoral: 2+, Right Femoral: 2+ Integumentary: Yes: WNL Neurological: Yes: WNL, Alert, Oriented ...Motor Strength: WNL Psychiatric: Yes: WNL Cat Scan: Other (chest ct 02/26/19: (1) moderate centrilobar pneumonia mainly upper lobes, interstitial thickening and fine nodulairty of the left uper lobe and right mid lobe, findings suggestive of pneumonia/pneumonitis, infections vs inflammatory. (2) 4mm pulmonary nodule in the left lung base, non specific. - modified barium swallow 02/26/2019: delayed passage of pill into the thoracic esophagus, possible esophageal stricture. upper endoscopy recommended. -chest ct 02/28/19: moderate emphysema mainly upper lobes. ct suggest pneumonia/ pneumonitis. 4mmg nodule in the left lung base, borderline mediastinal lymhadenopathy) LABS Laboratory Results - last 24 hr 03/05/19 03/06/19 06:55 06:44 WBC 12.2 H RBC 3.96 Hgb 11.5 Hct 35.5 MCV 89.6 MCH 29.2 MCHC 32.6 RDW 13.7 Plt Count 392 MPV 7.5 Absolute Neuts (auto) 8.1 H Neutrophils % 66.0 Neutrophils % (Manual) 64.8 Band Neutrophils % 0.0 Lymphocytes % 23.3 D Lymphocytes % (Manual) 23.2 Monocytes % 7.4 Monocytes % (Manual) 7 Eosinophils % 2.3 Eosinophils % (Manual) 3.7 Basophils % 1.0 Basophils % (Manual) 0.0 Myelocytes % (Man) 1 D Promyelocytes % (Man) 0 Blast Cells % (Manual) 0 Nucleated RBC % 0 Metamyelocytes 0 Hypochromia 0 Platelet Estimate Normal Polychromasia 0 Poikilocytosis 0 Anisocytosis 0 Microcytosis 0 Macrocytosis 0 POC Glucometer 82 HOSPITAL COURSE: Date of Admission:02/25/19 Date of Discharge: 03/06/19 Problem List - Problems (1) Prophylactic measure Assessment/Plan: FEN tolerating lquids/chopped diet monitor electrolytes IVF DVT heparin sq while in patient Dispo pending transfer to [facility] full code Code(s): Z29.9 - ENCOUNTER FOR PROPHYLACTIC MEASURES, UNSPECIFIED (2) Acute on chronic respiratory failure with hypoxia and hypercapnia Assessment/Plan: completed abx inhaled bronchodilators supplemental O2 as needed Code(s): J96.21 - ACUTE AND CHRONIC RESPIRATORY FAILURE WITH HYPOXIA; J96.22 - ACUTE AND CHRONIC RESPIRATORY FAILURE WITH HYPERCAPNIA (3) Esophageal stricture Assessment/Plan: Barium retained still in colon. Given mag citrate, esophogram/EGD with stricture dilation planned at [facility] Code(s): K22.2 - ESOPHAGEAL OBSTRUCTION (5) Pneumonia Assessment/Plan: resolved. Treated with abx most likely r/t microaspiration scondary to stricture inhaled bronchdilators supplemental O2 pulmonary following Code(s): J18.9 - PNEUMONIA, UNSPECIFIED ORGANISM (6) Requires aspiration precautions Assessment/Plan: followed by [facility] Code(s): Z91.89 - OTH PERSONAL RISK FACTORS, NOT ELSEWHERE CLASSIFIED (7) Headache Assessment/Plan: resolved tylenol prn Code(s): R51 - HEADACHE (8) Migraine Assessment/Plan: resolved Code(s): G43.909 - MIGRAINE, UNSP, NOT INTRACTABLE, WITHOUT STATUS MIGRAINOSUS (9) COPD (chronic obstructive pulmonary disease) Assessment/Plan: c./w symbicort & duo nebs Code(s): J44.9 - CHRONIC OBSTRUCTIVE PULMONARY DISEASE, UNSPECIFIED (10) Hyperlipidemia Assessment/Plan: c/w atrovastatin Code(s): E78.5 - HYPERLIPIDEMIA, UNSPECIFIED Qualifiers: Hyperlipidemia type: unspecified Qualified Code(s): E78.5 - Hyperlipidemia , unspecified (11) Hypothyroidism Assessment/Plan: c/w synthroid Code(s): E03.9 - HYPOTHYROIDISM, UNSPECIFIED (12) Methadone maintenance therapy patient Assessment/Plan: maintenance dose 80mg daily Code(s): F11.20 - OPIOID DEPENDENCE, UNCOMPLICATED (13) Anxiety disorder Assessment/Plan: c/w respiradol, klonopin, zoloft Code(s): F41.9 - ANXIETY DISORDER, UNSPECIFIED Qualifiers: Anxiety disorder type: generalized anxiety disorder Qualified Code(s): F41.1 - Generalized anxiety disorder Condition stable however further diagnostic and intenventions can not be done at this facility. Trasnfer to tertiary care facitility for further managment under Dr Candido Vila- GI Minutes to complete discharge: 55 Discharge Summary Problems reviewed: Yes Reason For Visit: CHILLS COPD PNEUMONIA Current Active Problems Acute on chronic respiratory failure with hypoxia and hypercapnia (Acute) Esophageal stricture (Acute) Laryngeal cancer (Acute) Pneumonia (Acute) Pneumonia (Acute) Prophylactic measure (Acute) RLQ abdominal pain (Acute) Rectal bleeding (Acute) Requires aspiration precautions (Acute) Hospital Course: HOSPITAL COURSE: Date of Admission:02/25/19 Date of Discharge: 03/06/19 Problem List - Problems (1) Prophylactic measure Assessment/Plan: FEN tolerating lquids/chopped diet monitor electrolytes IVF DVT heparin sq while in patient Dispo pending transfer to [facility] full code Code(s): Z29.9 - ENCOUNTER FOR PROPHYLACTIC MEASURES, UNSPECIFIED (2) Acute on chronic respiratory failure with hypoxia and hypercapnia Assessment/Plan: completed abx inhaled bronchodilators supplemental O2 as needed Code(s): J96.21 - ACUTE AND CHRONIC RESPIRATORY FAILURE WITH HYPOXIA; J96.22 - ACUTE AND CHRONIC RESPIRATORY FAILURE WITH HYPERCAPNIA (3) Esophageal stricture Assessment/Plan: Barium retained still in colon. Given mag citrate, esophogram/EGD with stricture dilation planned at [facility] Code(s): K22.2 - ESOPHAGEAL OBSTRUCTION (5) Pneumonia Assessment/Plan: resolved. Treated with abx most likely r/t microaspiration scondary to stricture inhaled bronchdilators supplemental O2 pulmonary following Code(s): J18.9 - PNEUMONIA, UNSPECIFIED ORGANISM (6) Requires aspiration precautions Assessment/Plan: followed by [facility] Code(s): Z91.89 - OTH PERSONAL RISK FACTORS, NOT ELSEWHERE CLASSIFIED (7) Headache Assessment/Plan: resolved tylenol prn Code(s): R51 - HEADACHE (8) Migraine Assessment/Plan: resolved Code(s): G43.909 - MIGRAINE, UNSP, NOT INTRACTABLE, WITHOUT STATUS MIGRAINOSUS (9) COPD (chronic obstructive pulmonary disease) Assessment/Plan: c./w symbicort & duo nebs Code(s): J44.9 - CHRONIC OBSTRUCTIVE PULMONARY DISEASE, UNSPECIFIED (10) Hyperlipidemia Assessment/Plan: c/w atrovastatin Code(s): E78.5 - HYPERLIPIDEMIA, UNSPECIFIED Qualifiers: Hyperlipidemia type: unspecified Qualified Code(s): E78.5 - Hyperlipidemia , unspecified (11) Hypothyroidism Assessment/Plan: c/w synthroid Code(s): E03.9 - HYPOTHYROIDISM, UNSPECIFIED (12) Methadone maintenance therapy patient Assessment/Plan: maintenance dose 80mg daily Code(s): F11.20 - OPIOID DEPENDENCE, UNCOMPLICATED (13) Anxiety disorder Assessment/Plan: c/w respiradol, klonopin, zoloft Code(s): F41.9 - ANXIETY DISORDER, UNSPECIFIED Qualifiers: Anxiety disorder type: generalized anxiety disorder Qualified Code(s): F41.1 - Generalized anxiety disorder Condition stable however further diagnostic and intenventions can not be done at this facility. Trasnfer to tertiary care facitility for further managment under Dr Candido Vila- GI Condition: Stable - Instructions Referrals: Dannielle Blackmon MD [Primary Care Provider] - Disposition: TRANSFER ACUTE CARE/OTHER HOSP - Home Medications Comprehensive Discharge Medication List: Ambulatory Orders Zolpidem Tartrate [Ambien] 10 mg PO HS 10/14/11 Albuterol 0.083% Nebulizer Swapna [Ventolin 0.083% Nebulizer Soln -] 1 neb NEB QID 04/20/15 Atorvastatin Ca [Lipitor] 40 mg PO HS 04/20/15 Clonazepam 2 mg PO TID 04/20/15 Levothyroxine [Synthroid -] 50 mcg PO ACBK 01/03/18 Risperidone [Risperdal -] 2 mg PO DAILY 01/03/18 Guaifenesin 100 mg PO QID PRN #1 bottle 02/27/18 Albuterol Sulfate Inhaler - [Ventolin HFA Inhaler -] 2 inh PO QID PRN #1 inhaler 04/15/18 Methadone [Dolophine -] 90 mg PO DAILY@0600 06/04/18 Budesonide/Formeterol Fumarate [SYMBICORT 160/4.5mcg -] 2 puff IH BID 11/08/18 Gabapentin 300 mg PO BID 11/08/18 Sertraline HCl [Zoloft] 25 tab PO DAILY 11/08/18 hydrOXYzine PAMOATE [Vistaril -] 50 mg PO BID 11/12/18 Problem List - Problems (1) Prophylactic measure Code(s): Z29.9 - ENCOUNTER FOR PROPHYLACTIC MEASURES, UNSPECIFIED (2) Acute on chronic respiratory failure with hypoxia and hypercapnia Code(s): J96.21 - ACUTE AND CHRONIC RESPIRATORY FAILURE WITH HYPOXIA; J96.22 - ACUTE AND CHRONIC RESPIRATORY FAILURE WITH HYPERCAPNIA (3) Esophageal stricture Code(s): K22.2 - ESOPHAGEAL OBSTRUCTION (5) Pneumonia Code(s): J18.9 - PNEUMONIA, UNSPECIFIED ORGANISM (6) Requires aspiration precautions Code(s): Z91.89 - OTH PERSONAL RISK FACTORS, NOT ELSEWHERE CLASSIFIED (7) Headache Code(s): R51 - HEADACHE (8) Migraine Code(s): G43.909 - MIGRAINE, UNSP, NOT INTRACTABLE, WITHOUT STATUS MIGRAINOSUS (9) COPD (chronic obstructive pulmonary disease) Code(s): J44.9 - CHRONIC OBSTRUCTIVE PULMONARY DISEASE, UNSPECIFIED (10) Hyperlipidemia Code(s): E78.5 - HYPERLIPIDEMIA, UNSPECIFIED Qualifiers: Hyperlipidemia type: unspecified Qualified Code(s): E78.5 - Hyperlipidemia , unspecified (11) Hypothyroidism Code(s): E03.9 - HYPOTHYROIDISM, UNSPECIFIED (12) Methadone maintenance therapy patient Code(s): F11.20 - OPIOID DEPENDENCE, UNCOMPLICATED (13) Anxiety disorder Code(s): F41.9 - ANXIETY DISORDER, UNSPECIFIED Qualifiers: Anxiety disorder type: generalized anxiety disorder Qualified Code(s): F41.1 - Generalized anxiety disorder This patient is new to me today: No Emergency Visit: Yes ED Registration Date: 02/25/19 Care time: The patient presented to the Emergency Department on the above date and was hospitalized for further evaluation of their emergent condition. Critical Care patient: No - Discharge Referral Referred to [facility] No
--- NOTE | 2019-03-06 08:28 | PN ---
Progress Note, Physician History of Present Illness: GI FOLLOW UP NOTE Patient examined and case discussed with Dr Diaz Patient continue to complain of dysphagia. Patient has been pending Barium Esophogram. She has been unable to have procedure done due to contrast still in colon. Dr Diaz spoke with Dr Candido Vila and he agreed to be accepting physician for transfer to [facility]. Spoke with SARATH Fairchild about transfer to [facility]. Spoke with patient about transfer to [facility] due to Esophageal Stricture, patient agrees to transfer to tertiary center. Transfer forms completed. - Current Medication List Current Medications: Active Medications Acetaminophen (Tylenol -) 650 mg PO Q6H PRN PRN Reason: FEVER Albuterol Sulfate (Ventolin 0.083% Nebulizer Soln -) 1 amp NEB Q4H PRN PRN Reason: SHORT OF BREATH/WHEEZING Last Admin: 03/02/19 20:00 Dose: 1 amp Albuterol/Ipratropium (Duoneb -) 1 amp NEB RQID [facility] Last Admin: 03/05/19 20:31 Dose: 1 amp Amoxicillin/Clavulanate Potassium (Augmentin - 875mg Tablet) 1 tab PO BID@0800, 1730 [facility] Stop: 03/07/19 07:59 Last Admin: 03/05/19 17:28 Dose: 1 tab Atorvastatin Calcium (Lipitor -) 40 mg PO HS [facility] Last Admin: 03/05/19 21:54 Dose: 40 mg Benzocaine/Menthol (Cepacol Lozenge -) 1 each MM Q2H PRN PRN Reason: SORE THROAT Last Admin: 03/05/19 21:55 Dose: 1 each Budesonide/Formoterol Fumarate (Symbicort 160/4.5mcg -) 2 puff IH BID [facility] Last Admin: 03/05/19 21:56 Dose: 2 puff Calcium Carbonate (Os-Cayden 500mg -) 500 mg PO BID [facility] Last Admin: 03/05/19 21:54 Dose: 500 mg Clonazepam (Klonopin -) 2 mg PO TID PRN PRN Reason: ANXIETY Last Admin: 03/05/19 22:05 Dose: 2 mg Gabapentin (Neurontin -) 300 mg PO BID [facility] Last Admin: 03/05/19 21:54 Dose: 300 mg Heparin Sodium (Porcine) (Heparin -) 5,000 unit SQ BID [facility] Last Admin: 03/05/19 21:45 Dose: Not Given Sodium Chloride (Normal Saline -) 1,000 mls @ 100 mls/hr IV ASDIR [facility] Last Admin: 03/05/19 22:09 Dose: 100 mls/hr Levothyroxine Sodium (Synthroid -) 50 mcg PO DAILY@0700 [facility] Last Admin: 03/06/19 06:08 Dose: 50 mcg Methadone HCl 80 mg/ Methadone (HCl 10 mg) 90 mg PO 0600 [facility] Last Admin: 03/06/19 06:07 Dose: 90 mg Metronidazole (Flagyl -) 250 mg PO TID [facility] Last Admin: 03/06/19 06:08 Dose: 250 mg Risperidone (Risperdal -) 2 mg PO DAILY [facility] Last Admin: 03/05/19 11:08 Dose: 2 mg Sertraline HCl (Zoloft -) 25 mg PO DAILY [facility] Last Admin: 03/05/19 10:14 Dose: 25 mg Zolpidem Tartrate (Ambien -) 10 mg PO HS PRN PRN Reason: INSOMNIA Last Admin: 03/05/19 21:54 Dose: 10 mg - Objective Vital Signs: Vital Signs Temperature 97.7 F 03/06/19 06:31 Pulse Rate 74 03/06/19 06:31 Respiratory Rate 20 03/06/19 06:31 Blood Pressure 129/78 03/06/19 06:31 O2 Sat by Pulse Oximetry (%) 95 03/05/19 21:00 Constitutional: Yes: No Distress, Calm Eyes: Yes: Conjunctiva Clear HENT: Yes: Atraumatic Cardiovascular: Yes: Regular Rate and Rhythm Respiratory: Yes: Regular, CTA Bilaterally Gastrointestinal: Yes: Normal Bowel Sounds, Soft Neurological: Yes: Alert Psychiatric: Yes: Alert Labs: CBC, BMP 03/05/19 06:55 03/04/19 08:20 INR, PTT INR 1.04 (0.83-1.09) 03/04/19 08:20 Problem List - Problems (1) Esophageal stricture Assessment/Plan: >Patient to be transferred to [facility] with accepting Physician Dr Candido Vila Code(s): K22.2 - ESOPHAGEAL OBSTRUCTION (2) RLQ abdominal pain Assessment/Plan: >pending Abd/Pelvic CT scan >Flagyl TID AC >low fiber, lactose free diet Code(s): R10.31 - RIGHT LOWER QUADRANT PAIN (3) Rectal bleeding Assessment/Plan: >Colonoscopy done on 01/10/19 >CEA 9.0 >oncology consult Code(s): K62.5 - HEMORRHAGE OF ANUS AND RECTUM
[2019-03-06 08:39] LABS: BASO % 0.6 % (0-2.0); EOS % 2.1 % (0-4.5); HEMATOCRIT 33.4 % (32.4-45.2); HEMOGLOBIN 10.8 GM/dL (10.7-15.3); LYMPH % 15.9 % (8-40); MCH 28.9 pg (25.7-33.7); MCHC 32.4 g/dl (32.0-36.0); MEAN CELL VOLUME 89.3 fl (80-96); MEAN PLT VOLUME 7.4 fl (7.5-11.1); MONO % 6.3 % (3.8-10.2); NEUT % 75.1 % (42.8-82.8); PLATELET COUNT 375 K/MM3 (134-434); RBC 3.74 M/mm3 (3.60-5.2); RDW 13.8 % (11.6-15.6); WHITE BLOOD COUNT 12.1 K/mm3 (4.0-10.0)
[2019-03-06] MEDS: AMOX TR/POT CLAV 875MG/125MG TABLETS (FP) PO SCH ×2 (08:41→17:17)
[2019-03-06] MEDS: SODIUM CHLORIDE 1,000 ML IV SCH ×2 (08:42→15:45)
[2019-03-06] MEDS: ALBUTEROL SO4 2.5/IPRATROPIUM 0.5 INH SOL 3 ML VIAL.NEB. NEB SCH ×4 (08:42→20:18)
[2019-03-06 09:07] LABS: ALBUMIN 3.2 g/dl (3.4-5.0); BILIRUBIN,TOTAL 0.3 mg/dL (0.2-1); CALCIUM 9.1 mg/dL (8.5-10.1); CREATININE 0.7 mg/dL (0.55-1.3); MAGNESIUM 2.1 mg/dL (1.8-2.4); POTASSIUM 4.8 mmol/L (3.5-5.1); TOT PROT 7.3 g/dl (6.4-8.2)
[2019-03-06] MEDS: clonazePAM 2 MG TABLET PO PRN ×2 (11:19→21:11)
[2019-03-06] MEDS: CALCIUM (OYSTER SHELL) 500 MG TABLET (FP) PO SCH ×2 (11:20→21:11)
[2019-03-06] MEDS: SERTRALINE HCL 25 MG TABLET (FP) PO SCH (11:20)
[2019-03-06] MEDS: BUDESONIDE/FORMETEROL FUMARATE 160/4.5 mcg INHALER IH SCH ×2 (11:20→21:12)
[2019-03-06] MEDS: GABAPENTIN 300 MG CAPSULE PO SCH ×2 (11:20→21:11)
[2019-03-06] MEDS: HEPARIN NA (PORCINE) 5,000 UNITS/ML 1ML VIAL SQ SCH ×2 (11:21→21:11)
[2019-03-06] MEDS: risperiDONE 1 MG TABLET PO SCH (11:39)
--- NOTE | 2019-03-06 12:22 | PN ---
Progress Note (short form) - Note Progress Note: PULMONARY Denies shortness of breath, cough. Wants to go home. Vital Signs Period Temp Pulse Resp BP Sys/Cornelius Pulse Ox Last 24 Hr 97.7 F-98.3 F 74-85 18-20 97-129/46-78 95 Gen: NAD at rest Heart: RRR Lung: scattered wheezes Abd: soft, nontender Ext: no edema CBC, BMP 03/06/19 07:24 03/06/19 07:24 Active Medications Acetaminophen (Tylenol -) 650 mg PO Q6H PRN PRN Reason: FEVER Albuterol Sulfate (Ventolin 0.083% Nebulizer Soln -) 1 amp NEB Q4H PRN PRN Reason: SHORT OF BREATH/WHEEZING Last Admin: 03/02/19 20:00 Dose: 1 amp Albuterol/Ipratropium (Duoneb -) 1 amp NEB RQID [facility] Last Admin: 03/06/19 12:14 Dose: 1 amp Amoxicillin/Clavulanate Potassium (Augmentin - 875mg Tablet) 1 tab PO BID@0800, 1730 [facility] Stop: 03/07/19 07:59 Last Admin: 03/06/19 08:41 Dose: 1 tab Atorvastatin Calcium (Lipitor -) 40 mg PO HS [facility] Last Admin: 03/05/19 21:54 Dose: 40 mg Benzocaine/Menthol (Cepacol Lozenge -) 1 each MM Q2H PRN PRN Reason: SORE THROAT Last Admin: 03/05/19 21:55 Dose: 1 each Budesonide/Formoterol Fumarate (Symbicort 160/4.5mcg -) 2 puff IH BID [facility] Last Admin: 03/06/19 11:20 Dose: 2 puff Calcium Carbonate (Os-Caydne 500mg -) 500 mg PO BID [facility] Last Admin: 03/06/19 11:20 Dose: 500 mg Clonazepam (Klonopin -) 2 mg PO TID PRN PRN Reason: ANXIETY Last Admin: 03/06/19 11:19 Dose: 2 mg Gabapentin (Neurontin -) 300 mg PO BID [facility] Last Admin: 03/06/19 11:20 Dose: 300 mg Heparin Sodium (Porcine) (Heparin -) 5,000 unit SQ BID [facility] Last Admin: 03/06/19 11:21 Dose: 5,000 unit Sodium Chloride (Normal Saline -) 1,000 mls @ 100 mls/hr IV ASDIR [facility] Last Admin: 03/06/19 08:42 Dose: 100 mls/hr Levothyroxine Sodium (Synthroid -) 50 mcg PO DAILY@0700 [facility] Last Admin: 03/06/19 06:08 Dose: 50 mcg Methadone HCl 80 mg/ Methadone (HCl 10 mg) 90 mg PO 0600 [facility] Last Admin: 03/06/19 06:07 Dose: 90 mg Metronidazole (Flagyl -) 250 mg PO TID [facility] Last Admin: 03/06/19 06:08 Dose: 250 mg Risperidone (Risperdal -) 2 mg PO DAILY [facility] Last Admin: 03/06/19 11:39 Dose: 2 mg Sertraline HCl (Zoloft -) 25 mg PO DAILY [facility] Last Admin: 03/06/19 11:20 Dose: 25 mg Zolpidem Tartrate (Ambien -) 10 mg PO HS PRN PRN Reason: INSOMNIA Last Admin: 03/05/19 21:54 Dose: 10 mg A/P Acute on Chronic Hypoxic and Hypercapneic Respiratory Failure improving Acute COPD Exacerbation Pneumonia h/o Laryngeal Ca Hypothyroidism Hyperlipidemia - complete antibiotics - inhaled bronchodilators - O2 to keep spO2 >90% - DVT prophylaxis - can d/c home from pulmonary standpoint
--- NOTE | 2019-03-06 15:58 | PN ---
Progress Note, Physician History of Present Illness: no new issues wants to go home - Current Medication List Current Medications: Active Medications Acetaminophen (Tylenol -) 650 mg PO Q6H PRN PRN Reason: FEVER Albuterol Sulfate (Ventolin 0.083% Nebulizer Soln -) 1 amp NEB Q4H PRN PRN Reason: SHORT OF BREATH/WHEEZING Last Admin: 03/02/19 20:00 Dose: 1 amp Albuterol/Ipratropium (Duoneb -) 1 amp NEB RQID [facility] Last Admin: 03/06/19 12:14 Dose: 1 amp Amoxicillin/Clavulanate Potassium (Augmentin - 875mg Tablet) 1 tab PO BID@0800, 1730 [facility] Stop: 03/07/19 07:59 Last Admin: 03/06/19 08:41 Dose: 1 tab Atorvastatin Calcium (Lipitor -) 40 mg PO HS [facility] Last Admin: 03/05/19 21:54 Dose: 40 mg Benzocaine/Menthol (Cepacol Lozenge -) 1 each MM Q2H PRN PRN Reason: SORE THROAT Last Admin: 03/05/19 21:55 Dose: 1 each Budesonide/Formoterol Fumarate (Symbicort 160/4.5mcg -) 2 puff IH BID [facility] Last Admin: 03/06/19 11:20 Dose: 2 puff Calcium Carbonate (Os-Cayden 500mg -) 500 mg PO BID [facility] Last Admin: 03/06/19 11:20 Dose: 500 mg Clonazepam (Klonopin -) 2 mg PO TID PRN PRN Reason: ANXIETY Last Admin: 03/06/19 11:19 Dose: 2 mg Gabapentin (Neurontin -) 300 mg PO BID [facility] Last Admin: 03/06/19 11:20 Dose: 300 mg Heparin Sodium (Porcine) (Heparin -) 5,000 unit SQ BID [facility] Last Admin: 03/06/19 11:21 Dose: 5,000 unit Sodium Chloride (Normal Saline -) 1,000 mls @ 100 mls/hr IV ASDIR [facility] Last Admin: 03/06/19 08:42 Dose: 100 mls/hr Levothyroxine Sodium (Synthroid -) 50 mcg PO DAILY@0700 [facility] Last Admin: 03/06/19 06:08 Dose: 50 mcg Methadone HCl 80 mg/ Methadone (HCl 10 mg) 90 mg PO 0600 [facility] Last Admin: 03/06/19 06:07 Dose: 90 mg Metronidazole (Flagyl -) 250 mg PO TID [facility] Last Admin: 03/06/19 13:57 Dose: 250 mg Risperidone (Risperdal -) 2 mg PO DAILY [facility] Last Admin: 03/06/19 11:39 Dose: 2 mg Sertraline HCl (Zoloft -) 25 mg PO DAILY [facility] Last Admin: 03/06/19 11:20 Dose: 25 mg Zolpidem Tartrate (Ambien -) 10 mg PO HS PRN PRN Reason: INSOMNIA Last Admin: 03/05/19 21:54 Dose: 10 mg - Objective Vital Signs: Vital Signs Temperature 97.3 F L 03/06/19 10:00 Pulse Rate 68 03/06/19 10:00 Respiratory Rate 20 03/06/19 10:00 Blood Pressure 109/75 03/06/19 10:00 O2 Sat by Pulse Oximetry (%) 95 03/06/19 09:00 Constitutional: Yes: No Distress, Calm Cardiovascular: Yes: Regular Rate and Rhythm Respiratory: Yes: Regular, CTA Bilaterally Gastrointestinal: Yes: Normal Bowel Sounds, Soft Musculoskeletal: Yes: WNL Extremities: Yes: WNL Neurological: Yes: Alert, Oriented Psychiatric: Yes: Alert, Oriented Labs: CBC, BMP 03/06/19 07:24 03/06/19 07:24 INR, PTT INR 1.04 (0.83-1.09) 03/04/19 08:20 Assessment/Plan Problem List - Problem (1) Pneumonia Code(s): J18.9 - PNEUMONIA, UNSPECIFIED ORGANISM Qualifiers: Pneumonia type: due to unspecified organism Laterality: left Lung location: lower lobe of lung Qualified Code(s): J18.9 - Pneumonia, unspecified organism (2) Headache Code(s): R51 - HEADACHE (3) Migraine Code(s): G43.909 - MIGRAINE, UNSP, NOT INTRACTABLE, WITHOUT STATUS MIGRAINOSUS (4) COPD (chronic obstructive pulmonary disease) Code(s): J44.9 - CHRONIC OBSTRUCTIVE PULMONARY DISEASE, UNSPECIFIED (5) Hypothyroidism Code(s): E03.9 - HYPOTHYROIDISM, UNSPECIFIED (6) Methadone maintenance therapy patient Code(s): F11.20 - OPIOID DEPENDENCE, UNCOMPLICATED (7) History of esophageal cancer Code(s): Z85.01 - PERSONAL HISTORY OF MALIGNANT NEOPLASM OF ESOPHAGUS (8) Vertigo Code(s): R42 - DIZZINESS AND GIDDINESS plan continue current mgmt monitor
[2019-03-06 18:31] VITALS: BP 122/73; PULSE 71; TEMP 97.9
[2019-03-06] MEDS: ATORVASTATIN CA 40 MG TABLET (FP) PO SCH (21:11)
== END 2019-03-06 21:35 | disposition short-term general hospital (02) | DRG 243 ==
LOC: JER 09:55 → JERBED 15:00 → J4W 17:35 → J5S 02-27 14:00
PROVIDERS: ADMIT Internal Medicine; ATTEND Nurse Practitioner Acute Care
DX: K22.2 Esophageal obstruction (principal); E03.9 Hypothyroidism, unspecified; J45.909 Unspecified asthma, uncomplicated; F11.20 Opioid dependence, uncomplicated; J44.9 Chronic obstructive pulmonary disease, unspecified; F17.210 Nicotine dependence, cigarettes, uncomplicated; D72.829 Elevated white blood cell count, unspecified; G43.909 Migraine, unspecified, not intractable, without status migrainosus; R42 Dizziness and giddiness; J69.0 Pneumonitis due to inhalation of food and vomit; J96.01 Acute respiratory failure with hypoxia; J96.02 Acute respiratory failure with hypercapnia; R68.83 Chills (without fever); I10 Essential (primary) hypertension; E78.5 Hyperlipidemia, unspecified; F41.9 Anxiety disorder, unspecified; R10.31 Right lower quadrant pain; K62.5 Hemorrhage of anus and rectum; R91.1 Solitary pulmonary nodule; J44.1 Chronic obstructive pulmonary disease with (acute) exacerbation; K64.8 Other hemorrhoids; K63.5 Polyp of colon; Z85.01 Personal history of malignant neoplasm of esophagus; Z99.81 Dependence on supplemental oxygen; Z88.0 Allergy status to penicillin
CPT/HCPCS: 36415; 36600; 70450-TC; 71045-TC-FY; 71250-TC; 72125-TC; 74018-TC-FY; 74177-TC; 74230-TC-FY; 80053; 82375; 82378; 82803; 82962; 83036; 83050; 83605; 83735; 84100; 84484; 85025; 85610; 85730; 86301; 86304; 87040; 87804; 87899; 92611-GN; 93005; 93010; 93306-TC; 94640; 99284-25; C1887; G0008; J0131; J1644; J2794; J7030; Q2036; Q9967